=== PATIENT | female | born 1945 | race Caucasian/White ===

== ENCOUNTER → 2016-11-10 | Outpatient (CLI) | payer MEDICARE, OTHER ==
--- NOTE | 2016-11-10 12:50 | CONS ---
DATE OF CONSULTATION: 11/10/2016 CONSULTATION/NEW PATIENT EVALUATION: A 71-year-old lady who has [facility] for snoring, witnessed episodes of stopped breathing and difficulties to initiate sleep. HISTORY OF PRESENT ILLNESS/SLEEP-WAKE EVALUATION: SLEEP SCHEDULE: Patient's usual sleep schedule is from 10 p.m. to 8 a.m. FALLING ASLEEP: She does have problem with falling asleep. She has pain in her body and that is one of the reasons why she cannot fall asleep. No TV in bedroom. DURING SLEEP: During the sleep she snores. She has been told about stopped breathing during sleep. She wakes up with nocturia, dry mouth, panic attack, palpitations, sweating. Positive history of sleep talking. Patient wakes up from sleep 3 times with one episode of nocturia. Positive history of kicking at night, patient cover sometimes out in the morning. DURING THE DAY/WAKE EVALUATION: In the morning, patient wakes up tired, has difficulties to pay attention, falling asleep during the day, worried about her sleep, has irritability, depression, anxiety. [place] Sleepiness Scale increased to 11. PAST MEDICAL HISTORY: Positive for hypertension, bipolar, coronary artery disease, acid reflux. PAST SURGICAL HISTORY: Stent insertion to coronary artery, fusion at C6, C7, right shoulder surgery, . MEDICATIONS: Xanax, aspirin, Celexa, Lasix, hydrochlorothiazide, Imdur, Toprol, omeprazole, Percocet, Zocor, Neurontin, Norvasc, Carvedilol, amiodarone, Lopressor, vitamin D supplement. SOCIAL HISTORY: Negative for smoking or using alcohol. REVIEW OF SYSTEMS: Awakenings from sleep, sleepiness during the day, snoring, neck and shoulder pain. FAMILY HISTORY: Hypertension, heart problems, hyperlipidemia, arthritis, pneumonia, headaches, cancer, snoring, acid reflux, mental illness, restless legs. During physical exam, lady without distress. BP 113/64, HR 62, RR 16. Height 5, 5 weight 241, BMI 40.1. Neck 15 inches in circumference. Temp is 98.4. Oxygen saturation at room air 92%. Oropharynx pharynx extremely low position of soft palate. ABDOMEN: Obese. NECK: Supple. No JVD. Thyroid is not palpable. LUNGS: Clear to percussion and to auscultation. Good air exchange. No wheezing or rhonchi. HEART: S1, S2 regular. No murmurs, gallops or rubs. EXTREMITIES: No clubbing or cyanosis. CARD STRIPPER: Awake, alert, and oriented x3. Cranial nerves 2 to 7 intact. There is no fasciculation or atrophy noted. No focal deficits observed. IMPRESSION: 1. Snoring, witness episodes of stopped breathing during the sleep. 2. Extremely low position of soft palate. 3. Sleepiness, [place] Sleepiness scale increased to 11. 4. Obesity. 5. Obstructive sleep apnea-hypopnea syndrome. 6. Difficulties to initiate sleep secondary to pain the shoulder and in the neck. 7. Neck pain. 8. Shoulder problem. 9. Hypertension. 10. Obesity, body mass index 40.1. 11. Bipolar. 12. Coronary artery disease, status post stenting. 13. Acid reflux. 14. Pointed history of kicking, possible periodic limb-movement syndrome. 15. Hyperlipidemia. 16. Status post fusion surgery on C6, C7. 17. Status post right shoulder surgery. 18. Status post . PLAN: 1. Polysomnography for evaluation of patient's breathing during sleep. 2. CPAP/BiPAP titration if sleep study confirms obstructive sleep apnea-hypopnea syndrome. 3. Preferable position during sleep on the side. 4. No driving if patient feels any sleepiness. Patient is aware of civil and criminal liability for unsafe driving. 5. I will see patient for follow-up visit to explain results of the testing and following plan. 6. Recommendations for insomnia should include stimulus control varied time, paradoxical intension, no ( ) in bedroom. Thank you very much for referring this patient for consultation. Sincerely, Win Hanson MD, PhD, FAASM. Diplomat of [place] [employer], Sleep Medicine Board by [place] [employer] Curator [facility] [place]
== END | disposition home or self-care (01) ==
LOC: SLEEP 10:13
PROVIDERS: ATTEND Internal Medicine
DX: G47.33 Obstructive sleep apnea (adult) (pediatric) (principal); E66.9 Obesity, unspecified; Z68.41 Body mass index [BMI] 40.0-44.9, adult; M54.2 Cervicalgia; M25.519 Pain in unspecified shoulder; I10 Essential (primary) hypertension; F31.9 Bipolar disorder, unspecified; I25.10 Atherosclerotic heart disease of native coronary artery without angina pectoris; Z95.818 Presence of other cardiac implants and grafts; K21.9 Gastro-esophageal reflux disease without esophagitis; E78.5 Hyperlipidemia, unspecified; Z98.1 Arthrodesis status; Z98.890 Other specified postprocedural states; Z79.899 Other long term (current) drug therapy
CPT/HCPCS: 99211

== ENCOUNTER 2017-03-14 18:22 | Observation (INO) | payer MEDICARE, OTHER ==
[2017-03-14] MEDS ORDERED: ASPIRIN 81 MG CHEW PO STA (18:43)
[2017-03-14] MEDS ORDERED: NITROGLYCERIN OINT 1 INCH/GM PACKET TOPICAL STA (18:43)
[2017-03-14 19:24] LABS: Basophils # (A) 0.1 k/uL (0-0.2); Basophils % (A) 1 %; CH 29.6; CHCM 32.5; Eosinophils # (A) 0.2 k/uL (0-0.7); Eosinophils % (A) 3 %; HCT 41.6 % (34.0-46.0); HDW 2.03; HGB 13.3 gm/dL (11.4-16.0); Luc # (Auto) 0.22; Luc % (Auto) 3; Lymphocytes # (A) 3.1 k/uL (1.0-4.8); Lymphocytes % (A) 36 %; MCH 29.4 pg (25.0-35.0); MCHC 32.1 g/dL (31.0-37.0); MCV 91.6 fL (80.0-100.0); Mean Platelet Volume 9.3; Monocytes # (A) 0.6 k/uL (0-1.0); Monocytes % (A) 8 %; Neutrophils # (A) 4.2 k/uL (1.3-7.7); Neutrophils % (A) 50 %; RBC 4.54 m/uL (3.80-5.40); RDW 14.1 % (11.5-15.5); WBC 8.5 k/uL (3.8-10.6); WBC (Perox) 8.45
[2017-03-14 19:31] LABS: ALT 25 U/L (9-52); AST 24 U/L (14-36); Alkaline Phosphatase 88 U/L (38-126); Anion Gap 7 mmol/L; Blood Urea Nitrogen 26 mg/dL (7-17); Calcium 9.5 mg/dL (8.4-10.2); Carbon Dioxide 27 mmol/L (22-30); Chloride 103 mmol/L (98-107); Glucose 100 mg/dL (74-99); Magnesium 2.2 mg/dL (1.6-2.3); Non-African American GFR(MDRD) 55 (>60 ml/min/1.73 sqM); Potassium 4.5 mmol/L (3.5-5.1); Sodium 137 mmol/L (137-145); Total Bilirubin 0.6 mg/dL (0.2-1.3); Total Protein 7.5 g/dL (6.3-8.2)
[2017-03-14 19:35] LABS: Partial Thromboplastin Time 24.1 sec (22.0-30.0); Prothrombin Time 10.3 sec (9.0-12.0)
--- NOTE | 2017-03-14 19:36 | XR ---
EXAMINATION TYPE: XR chest 2V DATE OF EXAM: 03/14/2017 COMPARISON: 01/09/2016 INDICATION: Chest pain TECHNIQUE: Frontal and lateral views of the chest are obtained. FINDINGS: The heart size is normal. The pulmonary vasculature is normal. The lungs are clear. IMPRESSION: 1. No acute pulmonary process.
[2017-03-14 19:43] LABS: Creatine Kinase 50 U/L (30-135)
[2017-03-14 19:55] LABS: Creatine Kinase MB 0.7 ng/mL (0.0-2.4); Troponin I <0.012 ng/mL (0.000-0.034)
[2017-03-14] MEDS ORDERED: HEPARIN SODIUM,PORCINE 5,000 UNIT/ML 1 ML VIAL IV ONE (20:22)
[2017-03-14] MEDS ORDERED: NITROGLYCERIN SL TABS 0.4 MG TAB SUBLINGUAL PRN (20:22)
[2017-03-14] MEDS ORDERED: HEPARIN SODIUM,PORCINE 5,000 UNIT/ML 1 ML VIAL IV PRN (20:22)
--- NOTE | 2017-03-14 20:22 | ED ---
Chest Pain HPI - General Chief Complaint: Chest Pain Stated Complaint: Chest pain Time Seen by Provider: 03/14/17 18:39 Source: patient Mode of arrival: wheelchair Limitations: no limitations - History of Present Illness Initial Comments: This 71-year-old white female presents with a complaint of some chest pain. She states that it is in the midsternal area and radiates posteriorly. This is described as a pressure type of sensation. She has had intermittently over the past 2-3 weeks. She will take sublingual nitroglycerin with relief. She had it today and took sublingual nitroglycerin with relief. She is currently pain- free. She denies any shortness breath diaphoresis or palpitations. She denies any leg pain, swelling, history of DVT, or history of PE. She does relate that she has had previous coronary artery disease with previous cardiac stenting. Her last stent apparently was 2 or 3 years ago. She was never had a stress test since that time. She apparently has an appointment to follow-up with her multifocal lens inspector this next month. No other complaints or modifying factors. - Related Data Home Medications Medication Instructions Recorded Confirmed Furosemide [Lasix] 20 mg PO BID 01/09/16 03/14/17 Isosorbide Mononitrate ER [Imdur] 30 mg PO DAILY 01/09/16 03/14/17 Nitroglycerin Sl Tabs [Nitrostat] 0.4 mg SUBLINGUAL Q5M PRN 01/09/16 03/14/17 Omeprazole [PriLOSEC] 20 mg PO AC-BID 01/09/16 03/14/17 ALPRAZolam [Xanax] 1 mg PO QID PRN 07/03/16 03/14/17 Simvastatin [Zocor] 40 mg PO DAILY 07/03/16 03/14/17 oxyCODONE-APAP 10-325MG [Percocet 1 tab PO QID PRN 07/03/16 03/14/17 10-325 mg] Azilsartan Med/Chlorthalidone 1 tab PO DAILY 03/14/17 03/14/17 [Edarbyclor 40-25 mg Tablet] Citalopram Hydrobromide [CeleXA] 10 mg PO DAILY 03/14/17 03/14/17 Allergies Allergy/AdvReac Type Severity Reaction Status Date / Time atorvastatin calcium AdvReac Unknown Verified 03/14/17 19:41 [From Lipitor] Review of Systems ROS Statement: Those systems with pertinent positive or pertinent negative responses have been documented in the HPI. ROS Other: All systems not noted in ROS Statement are negative. Past Medical History Past Medical History: Heart Failure, Hypertension, Myocardial Infarction ([place]) Additional Past Medical History / Comment(s): had mental breakdown several years ago and admitted for treatment Last Myocardial Infarction Date:: 01/16/14 History of Any Multi-Drug Resistant Organisms: None Reported Past Surgical History: Section, Heart Catheterization With Stent, Orthopedic Surgery Additional Past Surgical History / Comment(s): cervical fusion Date of Last Stent Placement:: 2013 Past Psychological History: Depression Smoking Status: Never smoker Past Alcohol Use History: None Reported Past Drug Use History: None Reported General Exam - General Exam Comments Initial Comments: GENERAL: The patient is well nourished and well hydrated. VITAL SIGNS: Heart rate, blood pressure, respiratory rate reviewed as recorded in nurse's notes. EYES: Pupils are round and reactive. Extraocular movements are intact. No conjunctival / lid redness or swelling. ENT: No external evidence of injury, swelling, or ecchymosis. Airway is patent. Throat is clear. NECK: Nontender. No swelling or evidence of injury. No subcutaneous emphysema. Trachea is midline. No thyroid mass. HEART: Regular rate and rhythm. Good peripheral pulses. LUNGS/CHEST: Breath sounds clear and equal bilaterally. No rales, rhonchi, or wheezes. No ecchymosis, subcutaneous emphysema, or tenderness. ABDOMEN: Abdomen soft without tenderness. No palpable masses or organomegaly. No peritoneal signs. No abdominal wall swelling or ecchymosis. EXTREMITIES: No extremity tenderness. Normal muscle tone and function. No thoracolumbar tenderness. NEUROLOGIC: Sensation is grossly intact. Cranial nerve exam reveals face is symmetrical, tongue is midline, speech is clear. SKIN: No abrasions or ecchymosis is noted. No induration or masses noted. PSYCHIATRIC: Alert and oriented. Appropriate behavior and judgment. Limitations: no limitations Course Vital Signs 03/14/17 03/14/17 03/14/17 18:28 19:00 19:25 Temperature 98.1 F 98.8 F Pulse Rate 90 82 Pulse Rate [ 82 Bilateral Hand Brush Filler ] Respiratory 20 15 Rate Blood Pressure 133/60 141/64 O2 Sat by Pulse 98 100 Oximetry Chest Pain MDM - MDM The patient was seen and examined. All diagnostics were reviewed. The EKG shows a normal sinus rhythm at a rate of 79. There is no acute ST-T wave changes identified. The NM interval is 164, QRS duration is 84, and QTC intervals 444. The patient had a chest x-ray which does not show any acute processes. Her laboratory was all essentially within normal limits. She does receive an aspirin as well as Nitropaste. The possibility of acute coronary syndrome certainly is possible and is felt that she would benefit from admission to the hospital for further treatment. She is agreeable with this plan. Disposition Clinical Impression: Chest pain, Unstable angina pectoris, Hypertension Disposition: ADMITTED IP TO THIS HOSP Condition: Good Referrals: Ottoniel Rasmussen DO [Primary Care Provider] - 1-2 days Time of Disposition: 20:22 Decision Date: 03/14/17 Decision Time: 20:22
[2017-03-14] MEDS ORDERED: ALPRAZolam 0.5 MG TAB PO PRN (20:25)
[2017-03-14] MEDS ORDERED: HEPARIN SODIUM,PORCINE/D5W PMX 25,000 UNIT in DEXTROSE/WATER 1 500ML.BAG IV SCH (20:30)
[2017-03-14] MEDS: oxyCODONE-APAP 10-325MG 1 EACH TAB PO PRN (21:59)
[2017-03-14] MEDS: FUROSEMIDE 20 MG TAB PO SCH (22:00)
[2017-03-14 22:10] VITALS: BMI 36.6
[2017-03-14] MEDS: NITROGLYCERIN OINT 1 INCH/GM PACKET TOPICAL SCH (23:42)
[2017-03-15 01:23] LABS: Creatine Kinase 38 U/L (30-135)
[2017-03-15 01:36] LABS: Creatine Kinase MB 0.8 ng/mL (0.0-2.4); Troponin I <0.012 ng/mL (0.000-0.034)
[2017-03-15] MEDS: oxyCODONE-APAP 10-325MG 1 EACH TAB PO PRN ×2 (04:32→11:55)
[2017-03-15] MEDS: NITROGLYCERIN OINT 1 INCH/GM PACKET TOPICAL SCH (06:10)
[2017-03-15] MEDS ORDERED: PANTOPRAZOLE 40 MG TABLET PO SCH (07:30)
[2017-03-15 07:36] VITALS: TEMP 97.4
[2017-03-15 07:54] LABS: Cholesterol 218 mg/dL (<200); HDL Cholesterol 86 mg/dL (40-60); Triglycerides 51 mg/dL (<150)
[2017-03-15 07:58] LABS: Creatine Kinase 36 U/L (30-135)
[2017-03-15] MEDS ORDERED: NITROGLYCERIN SL TABS 0.4 MG TAB SUBLINGUAL PRN (08:07)
[2017-03-15] MEDS ORDERED: ALPRAZolam 0.5 MG TAB PO PRN (08:07)
[2017-03-15] MEDS ORDERED: SODIUM CHLORIDE 0.9% 1,000 ML in EMPTY BAG 1 BAG IV ONE (08:07)
[2017-03-15] MEDS ORDERED: ASPIRIN 325 MG TAB PO STA (08:07)
[2017-03-15] MEDS ORDERED: ALPRAZolam 0.25 MG TAB PO PRN (08:07)
[2017-03-15 08:12] LABS: Creatine Kinase MB 0.6 ng/mL (0.0-2.4); Troponin I <0.012 ng/mL (0.000-0.034)
--- NOTE | 2017-03-15 08:44 | CONS ---
DATE OF CONSULTATION: CHIEF COMPLAINT: Chest pain. Keke is a 71-year-old lady with a history of coronary artery disease, status post angioplasty, hypertension, and dyslipidemia who presented to hospital complaining of chest pain. She complains she has intermittent episodes of moderate intensity, chest discomfort that she describes it as chest pressure that came on at rest and radiated to her back. She had scattering episodes of pain, took sublingual nitroglycerin without any response and it repeated 3 times following which the pain gradually resolved. She thinks that the pain is similar to the pain that she had several years ago when she had a myocardial infarction, just did not last as long. EKG does not reveal ischemic changes. Cardiac enzymes have been negative. Given the known CAD and symptoms suggestive of unstable angina, I am advising the patient to undergo cardiac catheterization for definitive diagnosis. She had been explained of risks, benefits, and alternatives, understood and accepted. Past medical history is significant for coronary artery disease, status post angioplasty, and dyslipidemia. Current medications include Percocet, simvastatin 40 q. daily, Prilosec 20 b.i.d., sublingual nitroglycerin on a p.r.n. basis, Imdur 30 mg daily, Lasix 20 b.i.d., Celexa, chlorthalidone, and Xanax. Allergic to ATORVASTATIN mainly in the form of muscle aches. Family history is negative for premature coronary artery disease. SOCIAL HISTORY: Negative for current smoking, EtOH abuse, or drug abuse. REVIEW OF SYSTEMS: HEENT is unremarkable. CARDIAC: As described above. RESPIRATORY: Negative. GI: Negative. GENITOURINARY: Negative. ALLERGY/IMMUNOLOGY: None. SKIN: Negative. MUSCULOSKELETAL: Negative. ENDOCRINE: Negative. CONSTITUTIONAL: Negative. ONCOLOGICAL: Negative. The rest of the system review is not relevant. On exam, comfortable at rest. Vital signs are stable. There is no jugular venous distention. Carotid upstroke is normal. There is no bruit. Chest exam reveals good air entry bilaterally. Heart exam reveals first and second heart sounds. No gallop. No murmur, no rub. Abdomen is soft, nontender. Exam of extremities did not reveal any edema. Peripheral pulses are felt. CALL CENTER RN exam did not reveal focal neurological deficits ASSESSMENT: 1. Unstable angina. 2. History of coronary artery disease, status post angioplasty. PLAN: Patient will undergo cardiac catheterization. She had been explained of risks, benefits, and alternatives, understood and accepted.
[2017-03-15] MEDS ORDERED: ISOSORBIDE MONONITRATE ER 30 MG TAB.ER.24H PO SCH (09:00)
[2017-03-15] MEDS ORDERED: PRAVASTATIN SODIUM 80 MG TAB PO SCH (09:00)
[2017-03-15] MEDS ORDERED: LOSARTAN 25 MG TAB PO SCH (09:00)
[2017-03-15] MEDS ORDERED: CITALOPRAM HYDROBROMIDE 10 MG TAB PO SCH (09:00)
[2017-03-15] MEDS ORDERED: CHLORTHALIDONE 25 MG TAB PO SCH (09:00)
[2017-03-15] MEDS ORDERED: IV FLUID CONTINUATION 150 ML IV ONE (09:53)
[2017-03-15] MEDS ORDERED: SODIUM CHLORIDE 0.9% 1,000 ML IV ONE (09:53)
[2017-03-15] MEDS ORDERED: MIDAZOLAM 2 MG/2 ML VIAL ONE (09:55)
[2017-03-15] MEDS ORDERED: MIDAZOLAM 2 MG/2 ML VIAL IVP ONE (10:18)
[2017-03-15] MEDS ORDERED: LIDOCAINE 2% INJ 20 MG/ML SQ ONE (10:21)
[2017-03-15] MEDS ORDERED: fentaNYL (PF) 50 MCG/ML 2 ML AMP ONE (10:24)
[2017-03-15] MEDS ORDERED: fentaNYL (PF) 50 MCG/ML 2 ML AMP IV ONE (10:25)
[2017-03-15] MEDS ORDERED: IOHEXOL 350 MG/ML 125ML BOTTLE INJ ONE (10:33)
[2017-03-15] MEDS ORDERED: RX INFO: IV CONTRAST WAS GIVEN 1 EACH MISC MISCELLANE PRN (10:41)
[2017-03-15] MEDS ORDERED: SODIUM CHLORIDE 0.9% 1,000 ML IV SCH (10:45)
--- NOTE | 2017-03-15 10:54 | CC ---
DATE OF SERVICE: INDICATION: Unstable angina. PROCEDURE NOTE: After obtaining informed consent, left heart catheterization and coronary angiogram are performed via the right femoral artery using standard [place]atha catheters. Patient tolerated the procedure well without any obvious immediate complication. A femoral angiogram was performed and decision was made for manual hemostasis because of the relatively high entry into the common femoral artery. FINDINGS: 1. HEMODYNAMICS: Left ventricular end-diastolic pressure is 12 mm. There is no significant gradient across the aortic valve. 2. LEFT VENTRICULOGRAM: Left ventriculogram is not performed. 3. ANGIOGRAPHIC DATA: LEFT MAIN CORONARY ARTERY: Left main coronary artery is a normal size vessel and is free of stenosis. It divides into left anterior descending coronary artery and circumflex coronary artery. Circumflex coronary artery is a dominant vessel and is free of stenosis. LAD was previously stented in the proximal part. There is a 40% in-stent restenosis noted. I do not see any focal hemodynamically significant lesions. Right coronary artery is a small, nondominant vessel and is free of significant disease. CONCLUSIONS: Mild in-stent restenosis within the left anterior descending coronary artery. No significant disease in the dominant circumflex or the nondominant right coronary artery. PLAN: Patient will be managed with optimal medical therapy. We will discharge her home and consider an outpatient stress test and if there is ischemia consider stenting of the LAD.
[2017-03-15 11:23] VITALS: RESP 14
[2017-03-15] MEDS: FUROSEMIDE 20 MG TAB PO SCH (14:18)
[2017-03-15 14:22] VITALS: BP 99/47; PULSE 72
--- NOTE | 2017-03-15 18:23 | HP ---
H&P AND DISCHARGE SUMMARY DATE OF ADMISSION: Patient is a 71-year-old with current complaints of chest pain in the retrosternal area, sharp in nature, radiating to the shoulder blades. Patient still has her gallbladder. Patient underwent cardiac catheterization, which did not show any significant coronary occlusion contributing to her pain. Patient denied any diaphoresis, palpitations. Patient's D-dimer is negative. Patient's chest pain is non-pleuritic in nature. Patient's pain is not related to food. ( ) gastroesophageal reflux disease and patient is on Prilosec at home. Patient still has her gallbladder. Will obtain a gallbladder ultrasound. Patient will need to stay on the bed in a supine position for a certain amount of time after cardiac catheterization. After that, if patient's right upper quadrant ultrasound is negative, then patient will be discharged today. If it is positive for any gallstones, patient will be referred to surgery and will be discharged. Patient at this point of time is pain-free. HOME MEDICATIONS: 1. Lasix. 2. Isosorbide mononitrate. 3. Nitroglycerin. 4. Omeprazole. 5. Alprazolam. 6. Simvastatin. 7. Oxycodone/acetaminophen. 8. Chlorthalidone. 9. Losartan. 10. Citalopram. ALLERGIES: ATORVASTATIN. PAST MEDICAL HISTORY: 1. Hypertension. 2. Myocardial infarction in the past. 3. Gastroesophageal reflux disease. 4. Depression. 5. section. 6. Cardiac catheterization and stenting in the past. 7. Orthopedic surgery. SOCIAL HISTORY: Denied any smoking, alcohol abuse or any drug abuse. FAMILY HISTORY: Cancer in the family. PHYSICAL EXAMINATION: VITAL SIGNS: Temperature 97.4, pulse of 72, respiratory rate of 14. Blood pressure is 99/47. Saturating at 93% on room air. GENERAL: The patient is alert and oriented x3, not in any acute distress. Well developed, well nourished. HEENT: Pupils are round and equally reacting to light. EOMI. No scleral icterus. No conjunctival pallor. Normocephalic, atraumatic. No pharyngeal erythema. No thyromegaly. CARDIOVASCULAR: S1 and S2 present. No murmurs, rubs, or gallops. PULMONARY: Chest is clear to auscultation, no wheezing or crackles. ABDOMEN: Soft, nontender, nondistended, normoactive bowel sounds. No palpable organomegaly. MUSCULOSKELETAL: No joint swelling or deformity. EXTREMITIES: No cyanosis, clubbing, or pedal edema. NEUROLOGICAL: Gross neurological examination did not reveal any focal deficits. SKIN: No rashes. CBC, CMP are within normal limits except for mildly elevated BUN. ASSESSMENT AND PLAN: 1. Chest pain. Rule out acute coronary syndrome. Patient subsequently underwent cardiac catheterization, which is negative. I do have a little bit of suspicion of gallbladder stones. Ultrasound of the gallbladder will be obtained. 2. Rule out cholelithiasis. 3. Hypertension. Patient is actually hypotensive, because of which his losartan and chlorthalidone combination will be discontinued; probably that will help with the elevated BUN as well. 4. Hyperlipidemia. 5. Depression, for which patient can continue her home medications. 6. Patient will continue Prilosec for her gastroesophageal reflux disease. This dictation is both H&P and discharge summary.
--- NOTE | 2017-03-16 08:47 | ECHOF ---
Referral Reason: MEASUREMENTS -------- HEIGHT: 165.1 cm WEIGHT: 99.3 kg BP: 109/55 RVIDd: 2.6 cm (< 3.3) IVSd: 0.9 cm (0.6 - 1.1) LVIDd: 5.1 cm (3.9 - 5.3) LVPWd: 0.9 cm (0.6 - 1.1) IVSs: 1.4 cm LVIDs: 3.5 cm LVPWs: 1.3 cm LAESV Index (A-L): 22.58 ml/m Ao Diam: 3.4 cm (2.0 - 3.7) AV Cusp: 1.8 cm (1.5 - 2.6) LA Diam: 2.5 cm (2.7 - 3.8) MV EXCURSION: 18.872 mm (> 18.000) MV EF SLOPE: 114 mm/s (70 - 150) EPSS: 0.4 cm MV E Alcon: 1.07 m/s MV DecT: 303 ms MV A Alcon: 1.02 m/s MV E/A Ratio: 1.06 RAP: 5.00 mmHg RVSP: 28.77 mmHg FINDINGS -------- Sinus rhythm. This was a technically difficult study with suboptimal views. LV size, wall thickness and systolic function are normal, with an EF greater than 55%. Overall left ventricular systolic function is normal with, an EF between 55 - 60 %. The right ventricle is normal in size and function. Normal LA size by volume 22+/-6 ml/m2. The right atrium is normal in size. 1.5mg of Definity was utilized for enhancement of images Aortic valve is trileaflet and is mildly thickened. There is no evidence of aortic regurgitation. There is no evidence of aortic stenosis. The mitral valve leaflets are mildly thickened. There is trace to mild mitral regurgitation. Trace tricuspid regurgitation present. There is no evidence of pulmonary hypertension. The right ventricular systolic pressure, as measured by Doppler, is 28.77mmHg. The pulmonic valve was not well visualized. The aortic root size is normal. Normal inferior vena cava with normal inspiratory collapse consistent with estimated right atrial pressure of 5 mmHg. The pericardium is normal. There is no pericardial effusion. CONCLUSIONS -------- 1. Sinus rhythm. 2. Trace tricuspid regurgitation present. 3. There is no evidence of pulmonary hypertension. 4. The right ventricular systolic pressure, as measured by Doppler, is 28.77mmHg. 5. The pulmonic valve was not well visualized. 6. The aortic root size is normal. 7. There is no pericardial effusion. 8. This was a technically difficult study with suboptimal views. 9. LV size, wall thickness and systolic function are normal, with an EF greater than 55%. 10. Overall left ventricular systolic function is normal with, an EF between 55 - 60 %. 11. Normal LA size by volume 22+/-6 ml/m2. 12. 1.5mg of Definity was utilized for enhancement of images 13. Aortic valve is trileaflet and is mildly thickened. 14. The mitral valve leaflets are mildly thickened. 15. There is trace to mild mitral regurgitation. SINGLE NEEDLE TUFTING MACHINE OPERATOR: Nate Doss RDCS
[2017-03-16] MEDS ORDERED: ASPIRIN 325 MG TAB PO SCH (09:00)
== END 2017-03-15 18:35 | disposition home or self-care (01) ==
LOC: EC 18:22 → SUPCPDRO 18:22 → 3OBS 20:22
PROVIDERS: ADMIT Internal Medicine; ATTEND Internal Medicine
DX: I25.110 Atherosclerotic heart disease of native coronary artery with unstable angina pectoris (principal); T82.855A Stenosis of coronary artery stent, initial encounter; Y83.1 Surgical operation with implant of artificial internal device as the cause of abnormal reaction of the patient, or of later complication, without mention of misadventure at the time of the procedure; I25.2 Old myocardial infarction; I11.0 Hypertensive heart disease with heart failure; I50.9 Heart failure, unspecified; Z88.8 Allergy status to other drugs, medicaments and biological substances; Z79.899 Other long term (current) drug therapy; F32.9 Major depressive disorder, single episode, unspecified; E78.5 Hyperlipidemia, unspecified; K21.9 Gastro-esophageal reflux disease without esophagitis; I95.9 Hypotension, unspecified
CPT/HCPCS: 96365; 96366 ×2; 96376; 99285; 36415; 94760; 93005; 93458; 85379; 83880; 80061; 80053; 82550 ×2; 82553 ×2; 83735; 84484 ×2; 85025; 85610; 85730 ×2; 71020; G0378 ×2; C8929; C1894; C1769; J2001; J2250; J1644 ×2; J3010; Q9967; 93306; 96360

== ENCOUNTER → 2017-03-31 | Outpatient (CLI) | payer MEDICARE, OTHER ==
--- NOTE | 2017-03-31 07:28 | US ---
EXAMINATION TYPE: US abdomen limited DATE OF EXAM: 03/31/2017 COMPARISON: NONE CLINICAL HISTORY: R10.11 RUQ ABD PAIN. larger habitus, ruq pain EXAM MEASUREMENTS: Liver Length: 15.4 cm Gallbladder Wall: 0.2 cm CBD: 0.4 cm Right Kidney: 9.9 x 4.4 x 4.1 cm Pancreas: Obscured by bowel gas Liver: There is diminished attenuation in the liver compatible some mild fatty infiltration. Gallbladder: wnl Evidence for sonographic Sam's sign: no CBD: wnl Right Kidney: wnl IMPRESSION: 1. Mild fatty infiltration of the liver.
== END | disposition home or self-care (01) ==
LOC: RADUSWWP 06:53
PROVIDERS: ATTEND Family Medicine
DX: K76.0 Fatty (change of) liver, not elsewhere classified (principal)
CPT/HCPCS: 76705

== ENCOUNTER → 2018-11-29 | Outpatient (CLI) | payer MEDICARE, OTHER ==
--- NOTE | 2018-12-01 13:59 | MR ---
EXAMINATION TYPE: MR cervical spine wo con DATE OF EXAM: 11/29/2018 COMPARISON: 10/01/2016 HISTORY: spondylosis neck pain TECHNIQUE: Multiplanar, multisequence images of the cervical spine were acquired. Vertebra have normal alignment. There is metal artifact from anterior fusion surgery at C6-7. There i s some mild decreased signal in the disks throughout the cervical spine and disc space narrowing. The re is no compression fracture. The skull base appears intact. Brainstem is intact. Spinal canal is na rrowed to 6.5 mm at C5-6 due to facet arthropathy and mild posterior disc bulging. I see no focal bon e destruction. There is no evidence of edema and the cervical spinal cord. IMPRESSION: There is mild spinal stenosis at C4-5 C5-6 that measures down to 6.5 mm. No significant change compar ed to old exam. Mild multilevel spondylotic changes.
== END ==
LOC: RADMRIMAIN 07:36
PROVIDERS: ATTEND Internal Medicine
DX: M48.02 Spinal stenosis, cervical region (principal); M47.12 Other spondylosis with myelopathy, cervical region
CPT/HCPCS: 72141

== ENCOUNTER 2019-01-24 10:19 | Inpatient (IN) | payer MEDICARE, OTHER ==
[2019-01-24] MEDS ORDERED: methylPREDNISolone SOD SUCCI 125 MG/2 ML VIAL IV STA (10:51)
[2019-01-24] MEDS ORDERED: IPRATROPIUM-ALBUTEROL 3 ML NEB INHALATION STA ×2 (10:51→13:07)
--- NOTE | 2019-01-24 10:54 | ED ---
URI HPI - General Chief Complaint: Upper Respiratory Infection Stated Complaint: sinus & chest congestion Time Seen by Provider: 01/24/19 10:38 Source: patient, family, RN notes reviewed, old records reviewed Mode of arrival: ambulatory - History of Present Illness Initial Comments: Patient is a 73-year-old female who presents emergency department today with increased cough congestion and shortness of breath. Patient states that she was seen by her PCP and started on amoxicillin 500 3 times a day on Monday. She's been taking the antibiotics as prescribed. She states her cough is continuing to get worse. She denies any history of COPD or lung diseases. She is never sm oker. Patient reports she's had history of heart attacks and stents. Patient states that she has had no vomiting but does feel nauseated after taking her medications. She denies any associated chest pain. - Related Data Home Medications Medication Instructions Recorded Confirmed Furosemide [Lasix] 20 mg PO BID 01/09/16 01/24/19 Nitroglycerin Sl Tabs [Nitrostat] 0.4 mg SUBLINGUAL Q5M PRN 01/09/16 01/24/19 Simvastatin [Zocor] 40 mg PO DAILY 07/03/16 01/24/19 oxyCODONE-APAP 10-325MG [Percocet 1 tab PO QID PRN 07/03/16 01/24/19 10-325 mg] Aspirin EC [Ecotrin Low Dose] 81 mg PO DAILY 08/09/17 01/24/19 Carvedilol [Coreg] 6.25 mg PO BID 08/09/17 01/24/19 Cholecalciferol [Vitamin D3] 1,000 unit PO DAILY 08/09/17 01/24/19 Meloxicam [Mobic] 15 mg PO DAILY 08/09/17 01/24/19 Metoprolol Succinate [Toprol XL] 25 mg PO BID 08/09/17 01/24/19 Multivit-Min/FA/Lycopen/Lutein 1 tab PO DAILY 08/09/17 01/24/19 [Centrum Silver Tablet] amLODIPine [Norvasc] 5 mg PO BID 08/09/17 01/24/19 metFORMIN HCL [Glucophage] 500 mg PO AC-TID 08/09/17 01/24/19 Amoxicillin 500 mg PO TID 01/24/19 01/24/19 Carisoprodol [Soma] 350 mg PO HS 01/24/19 01/24/19 Celecoxib [CeleBREX] 200 mg PO DAILY 01/24/19 01/24/19 Citalopram Hydrobromide [CeleXA] 40 mg PO DAILY 01/24/19 01/24/19 Dextroamphetamine/Amphetamine 20 mg PO BID 01/24/19 01/24/19 [Adderall] Fluticasone Nasal Lutz [Flonase 2 spr EA NOSTRIL DAILY 01/24/19 01/24/19 Nasal Lutz] Folic Acid 1 mg PO DAILY 01/24/19 01/24/19 Hydrochlorothiazide [Hydrodiuril] 25 mg PO DAILY 01/24/19 01/24/19 Previous Rx's Medication Instructions Recorded Pantoprazole [Protonix] 40 mg PO AC-BID #60 tablet. 09/13/17 Thiamine [Vitamin B-1] 100 mg PO DAILY@1200 #30 tab 09/13/17 Allergies Allergy/AdvReac Type Severity Reaction Status Date / Time atorvastatin calcium AdvReac MUSCLE Verified 01/24/19 10:43 [From Lipitor] ACHES Review of Systems ROS Statement: Those systems with pertinent positive or pertinent negative responses have been documented in the HPI. ROS Other: All systems not noted in ROS Statement are negative. Past Medical History Past Medical History: Heart Failure, Diabetes Mellitus, Hypertension, Myocardial Infarction ([place]) Additional Past Medical History / Comment(s): had mental breakdown several years ago and admitted for treatment Last Myocardial Infarction Date:: 01/16/14 History of Any Multi-Drug Resistant Organisms: None Reported Past Surgical History: Section, Heart Catheterization With Stent, Orthopedic Surgery Additional Past Surgical History / Comment(s): cervical fusion, shoulder repair on the right Past Anesthesia/Blood Transfusion Reactions: No Reported Reaction Date of Last Stent Placement:: 2013 Past Psychological History: Anxiety, Bipolar, Depression Smoking Status: Never smoker Past Alcohol Use History: None Reported Past Drug Use History: None Reported - Past Family History Mother Additional Family Medical History / Comment(s): mac degeneration of the eyes Father Family Medical History: Cancer Additional Family Medical History / Comment(s): Stomach CA General Exam - General Exam Comments Initial Comments: This is a 73-year-old female. Alert and oriented 3. Patient appears in no s ignificant distress at this time. General appearance: alert, in no apparent distress Head exam: Present: atraumatic, normocephalic, normal inspection Eye exam: Present: normal appearance, PERRL, EOMI. Absent: scleral icterus, conjunctival injection, periorbital swelling ENT exam: Present: normal exam, mucous membranes moist Neck exam: Present: normal inspection. Absent: tenderness, meningismus, lymphadenopathy Respiratory exam: Present: wheezes (Diffuse wheezing over all lung macario. Rhonchi noted.). Absent: normal lung sounds bilaterally, respiratory distress, rales, rhonchi, stridor Cardiovascular Exam: Present: regular rate, normal rhythm, normal heart sounds. Absent: systolic murmur, diastolic murmur, rubs, gallop, clicks GI/Abdominal exam: Present: soft, normal bowel sounds. Absent: distended, tenderness, guarding, rebound, rigid Extremities exam: Present: normal inspection, full ROM, normal capillary refill. Absent: tenderness, pedal edema, joint swelling, calf tenderness Back exam: Present: normal inspection Neurological exam: Present: alert, oriented X3, CN II-XII intact Psychiatric exam: Present: normal affect, normal mood Skin exam: Present: warm, dry, intact, normal color. Absent: rash Course Vital Signs 01/24/19 01/24/19 01/24/19 10:28 12:00 12:16 Temperature 98.1 F Pulse Rate 80 82 90 Respiratory 20 Rate Blood Pressure 129/78 O2 Sat by Pulse 97 Oximetry 01/24/19 01/24/19 01/24/19 13:17 13:30 13:59 Temperature Pulse Rate 85 88 Respiratory Rate Blood Pressure O2 Sat by Pulse 92 L Oximetry - Reevaluation(s) Reevaluation #1: 01/24/19 14:09 Patient was reevaluated times and that her pulse ox down to 80 and 92%. Patient continued to wheeze and complains of significant short of breath. Medical Decision Making - Medical Decision Making is a 73-year-old female presents emergency department today with chief complaint of cough congestion and wheezing for the past week. She was seen by PCP started on amoxicillin on Monday. She isn't taking the antibiotics as prescribed. She states that she is continued worse. She has significant wheezing and productive cough on exam. Patient is given IV fluids labwork obt ained. She is given IV Solu-Medrol. She is given a total of 3 DuoNeb treatments with continued wheezing shortness of breath. Patient has no history of COPD or lung diseases. Patient was placed on oxygen. At this time Patient will be admitted for tracheobronchitis, Patient improved after 3 breathing treatments. Patient will be administered with 1 g of Rocephin IV. Continued steroids. - Lab Data Result diagrams: 01/24/19 11:35 01/24/19 11:35 Lab Results 01/24/19 01/24/19 01/24/19 Range/Units 11:35 11:35 11:35 WBC 6.9 (3.8-10.6) k/uL RBC 3.90 (3.80-5.40) m/uL Hgb 11.0 L (11.4-16.0) gm/dL Hct 34.5 (34.0-46.0) % MCV 88.4 (80.0-100.0) fL MCH 28.2 (25.0-35.0) pg MCHC 31.9 (31.0-37.0) g/dL RDW 14.0 (11.5-15.5) % Plt Count 210 (150-450) k/uL Neutrophils % 56 % Lymphocytes % 27 % Monocytes % 7 % Eosinophils % 7 % Basophils % 1 % Neutrophils # 3.9 (1.3-7.7) k/uL Lymphocytes # 1.9 (1.0-4.8) k/uL Monocytes # 0.5 (0-1.0) k/uL Eosinophils # 0.5 (0-0.7) k/uL Basophils # 0.1 (0-0.2) k/uL Sodium 139 (137-145) mmol/L Potassium 4.4 (3.5-5.1) mmol/L Chloride 107 (98-107) mmol/L Carbon Dioxide 27 (22-30) mmol/L Anion Gap 5 mmol/L BUN 10 (7-17) mg/dL Creatinine 0.76 (0.52-1.04) mg/dL Est GFR (CKD-EPI)AfAm >90 (>60 ml/min/1.73 sqM) Est GFR (CKD-EPI)NonAf 79 (>60 ml/min/1.73 sqM) Glucose 101 H (74-99) mg/dL Plasma Lactic Acid Brijesh 0.7 (0.7-2.0) mmol/L Calcium 9.2 (8.4-10.2) mg/dL - Radiology Data Radiology results: report reviewed No acute process noted on chest x-ray. Disposition Clinical Impression: Tracheobronchitis, Failure of outpatient treatment Disposition: ADMITTED IP TO THIS [facility] Condition: Stable Is patient prescribed a controlled substance at d/c from ED?: No Referrals: Virgil Campuzano MD [Primary Care Provider] - 1-2 days Time of Disposition: 14:11
[2019-01-24 11:55] LABS: Basophils # (A) 0.1 k/uL (0-0.2); Basophils % (A) 1 %; Eosinophils # (A) 0.5 k/uL (0-0.7); Eosinophils % (A) 7 %; HCT 34.5 % (34.0-46.0); Lymphocytes # (A) 1.9 k/uL (1.0-4.8); Lymphocytes % (A) 27 %; MCH 28.2 pg (25.0-35.0); MCHC 31.9 g/dL (31.0-37.0); MCV 88.4 fL (80.0-100.0); Monocytes # (A) 0.5 k/uL (0-1.0); Monocytes % (A) 7 %; Neutrophils # (A) 3.9 k/uL (1.3-7.7); Neutrophils % (A) 56 %; Platelet Count 210 k/uL (150-450); WBC 6.9 k/uL (3.8-10.6)
[2019-01-24 12:12] LABS: Anion Gap 5 mmol/L; Blood Urea Nitrogen 10 mg/dL (7-17); Calcium 9.2 mg/dL (8.4-10.2); Carbon Dioxide 27 mmol/L (22-30); Chloride 107 mmol/L (98-107); Glucose 101 mg/dL (74-99); Potassium 4.4 mmol/L (3.5-5.1); Sodium 139 mmol/L (137-145)
--- NOTE | 2019-01-24 12:45 | XR ---
EXAMINATION TYPE: XR chest 2V DATE OF EXAM: 01/24/2019 COMPARISON: 09/16/2017 TECHNIQUE: PA and lateral views submitted. HISTORY: Cough and congestion FINDINGS: The lungs are clear and there is no pneumothorax, pleural effusion, or focal pneumonia. Arthropathy of the shoulders and diffuse osteopenia. Postsurgical change overlying the cervical spine. Biapical pleural thickening. Hypertrophic and degenerative change of the vertebral column. IMPRESSION: 1. No acute process.
[2019-01-24] MEDS ORDERED: cefTRIAXone IN SWFI 1,000 MG/10 ML SYRINGE IVP STA (13:07)
[2019-01-24] MEDS ORDERED: SODIUM CHLORIDE 0.9% 1,000 ML IV ONE (13:13)
[2019-01-24] MEDS ORDERED: NALOXONE 0.4 MG/ML 1 ML VIAL IV PRN (14:11)
[2019-01-24] MEDS ORDERED: ONDANSETRON 4 MG/2 ML VIAL IVP PRN (14:11)
[2019-01-24] MEDS ORDERED: ACETAMINOPHEN TAB 325 MG TAB PO PRN (14:11)
[2019-01-24] MEDS ORDERED: IBUPROFEN 400 MG TAB PO PRN (14:11)
[2019-01-24] MEDS ORDERED: IPRATROPIUM-ALBUTEROL 3 ML NEB INHALATION PRN ×2 (14:13→22:32)
[2019-01-24] MEDS ORDERED: AZITHROMYCIN 500 MG TAB PO STA (14:14)
[2019-01-24] MEDS: SODIUM CHLORIDE 0.9% 1,000 ML IV SCH (17:01)
[2019-01-24 17:29] LABS: Glucose,Whole Blood 148 mg/dL (75-99)
[2019-01-24] MEDS: Acetaminophen-Codeine 300-30mg TAB PO PRN (18:03)
[2019-01-24] MEDS: methylPREDNISolone SOD SUCCI 125 MG/2 ML VIAL IV SCH ×2 (18:50→19:00)
[2019-01-24 20:44] LABS: Glucose,Whole Blood 201 mg/dL (75-99)
[2019-01-24 20:54] VITALS: BMI 33.3
[2019-01-24] MEDS ORDERED: AMOXICILLIN 500 MG CAP PO SCH (22:00)
[2019-01-24] MEDS ORDERED: INSULIN ASPART (NovoLOG) 100 UNIT/ML VIAL SQ ONE (22:38)
[2019-01-24] MEDS: CARVEDILOL 6.25 MG TAB PO SCH (22:51)
[2019-01-24] MEDS: amLODIPine 5 MG TAB PO SCH (22:51)
[2019-01-24] MEDS: FUROSEMIDE 20 MG TAB PO SCH (22:51)
[2019-01-24] MEDS: METOPROLOL SUCCINATE (ER) 25 MG TAB.ER.24H PO SCH (22:51)
[2019-01-24] MEDS: LEVOFLOXACIN 500 MG TAB PO SCH (22:51)
[2019-01-24] MEDS ORDERED: PANTOPRAZOLE 40 MG/10 ML VIAL IVP ONE (22:54)
[2019-01-24] MEDS: IPRATROPIUM-ALBUTEROL 3 ML NEB INHALATION SCH (23:37)
[2019-01-24] MEDS: methylPREDNISolone SOD SUCCI 40 MG/ML 1 ML VIAL IV SCH (23:47)
[2019-01-25] MEDS: Acetaminophen-Codeine 300-30mg TAB PO PRN ×3 (01:25→20:10)
[2019-01-25] MEDS: SODIUM CHLORIDE 0.9% 1,000 ML IV SCH ×3 (05:30→20:16)
[2019-01-25 06:59] LABS: Glucose,Whole Blood 142 mg/dL (75-99)
[2019-01-25] MEDS ORDERED: PANTOPRAZOLE 40 MG TABLET PO SCH (07:30)
[2019-01-25] MEDS: IPRATROPIUM-ALBUTEROL 3 ML NEB INHALATION SCH ×4 (07:34→19:55)
[2019-01-25] MEDS: BUDESONIDE 0.5 MG/2 ML NEBU INHALATION SCH ×2 (07:34→19:55)
[2019-01-25] MEDS: FUROSEMIDE 20 MG TAB PO SCH ×2 (08:25→16:44)
[2019-01-25] MEDS: CARVEDILOL 6.25 MG TAB PO SCH ×2 (08:25→16:44)
[2019-01-25] MEDS: METOPROLOL SUCCINATE (ER) 25 MG TAB.ER.24H PO SCH ×2 (08:25→20:10)
[2019-01-25] MEDS: INSULIN ASPART (NovoLOG) 100 UNIT/ML VIAL SQ SCH ×4 (08:25→21:36)
[2019-01-25] MEDS: ASPIRIN 81 MG PO SCH (08:25)
[2019-01-25] MEDS: amLODIPine 5 MG TAB PO SCH ×2 (08:25→20:10)
[2019-01-25] MEDS: methylPREDNISolone SOD SUCCI 40 MG/ML 1 ML VIAL IV SCH ×2 (08:25→16:43)
[2019-01-25] MEDS: PANTOPRAZOLE 40 MG/10 ML VIAL IV SCH (08:26)
[2019-01-25] MEDS: FLUTICASONE 50MCG/SPRAY NASAL 16GM EA NOSTRIL SCH (08:33)
[2019-01-25] MEDS ORDERED: CITALOPRAM HYDROBROMIDE 20 MG TAB PO SCH (09:00)
[2019-01-25 12:12] LABS: Glucose,Whole Blood 142 mg/dL (75-99)
[2019-01-25 17:23] LABS: Glucose,Whole Blood 149 mg/dL (75-99)
--- NOTE | 2019-01-25 18:49 | HP ---
HISTORY AND PHYSICAL CHIEF COMPLAINT: Shortness of breath and difficulty breathing. HISTORY OF PRESENT ILLNESS: This is the first known admission for this 73-year-old white female who presented to the emergency room with shortness of breath, sore throat and a harsh cough. She had been started on amoxicillin and was getting worse. She has had no hemoptysis, pleuritic pain, fever, chills, etc. In the emergency room she was afebrile and vital signs were normal. White count was 6.9, hemoglobin 11. The rest of her studies were normal. HOME MEDICATIONS: At home she has been on: 1. Soma. 2. Celebrex. 3. Vitamin D3. 4. Adderall. 5. Folic acid. 6. Hydrochlorothiazide. 7. Mobic. 8. Metformin. 9. OxyContin 10. 10.Simvastatin. 11.Thiamine. 12.Amlodipine. 13.Aspirin. 14.The amoxicillin. 15.Carvedilol. 16.Celexa. 17.Fluticasone nasal spray. 18.Lasix. 19.Metoprolol. 20.Protonix. REVIEW OF SYSTEMS: Review of systems was otherwise unremarkable. She has had no neurologic problems, difficulty with the vision or the hearing, heart disease, palpitations, angina, abdominal pain, nausea, vomiting, hematemesis, melena, hematochezia, jaundice, hepatitis, cirrhosis, renal failure, hematuria, frequency, urgency, dysuria, incontinence, diabetes, etc. Past medical history, family history, and personal and social histories are unremarkable. She is ALLERGIC TO LIPITOR. She has had some procedures in the past, including 2 cardiac stents and a procedure under [facility]. She does not smoke. She has mild type 2 NIDDM. She also was experiencing a tremor, which is apparently new for her, and she thinks it might be related to the updraft treatments. PHYSICAL EXAMINATION: Blood pressure 123/73, pulse 74, respiration 20, and she is afebrile. In general she appeared to be well developed, well nourished, in no acute distress. Skin color is normal. Skin is warm and dry. Lymph nodes are not enlarged. Head, ears, eyes, nose, mouth and throat are normal. Neck veins are not distended. Chest demonstrates scattered rales and rhonchi with expiratory wheezing. Cardiac exam is normal sinus rhythm with no murmurs or extra sounds. Abdomen is soft, non-tender, without visceromegaly or masses. Extremities are normal. Neurologically she is intact. She is admitted to the hospital with the diagnoses: 1. Tracheobronchitis. 2. History of coronary artery disease. PLAN: 1. Bed rest. 2. IV fluids. 3. IV and inhaled steroids. 4. Antibiotics. 5. Watch blood sugars. MMODL / IJN: [id number] /
[2019-01-25 20:07] LABS: Glucose,Whole Blood 210 mg/dL (75-99)
--- NOTE | 2019-01-25 22:02 | PN ---
PROGRESS NOTE CHIEF COMPLAINT: Uncontrolled cough and shortness of breath HISTORY OF PRESENT ILLNESS: This lady is feeling slightly better, but she is still very congested and has a tight cough. PHYSICAL EXAM: Her chest is fairly clear except for occasional rhonchi. Cardiac exam is normal. Abdomen is soft, nontender. IMPRESSION: 1. Respiratory failure. 2. Tracheobronchitis. PLAN: Continue with current treatment until she is able to be discharged. MMODL / IJN: [id number] /
[2019-01-25] MEDS: LEVOFLOXACIN 500 MG TAB PO SCH (22:41)
[2019-01-26] MEDS: methylPREDNISolone SOD SUCCI 40 MG/ML 1 ML VIAL IV SCH ×4 (00:13→23:15)
[2019-01-26] MEDS: SODIUM CHLORIDE 0.9% 1,000 ML IV SCH ×2 (06:15→17:13)
[2019-01-26 07:13] LABS: Glucose,Whole Blood 142 mg/dL (75-99)
[2019-01-26] MEDS: BUDESONIDE 0.5 MG/2 ML NEBU INHALATION SCH ×2 (07:45→20:04)
[2019-01-26] MEDS: IPRATROPIUM-ALBUTEROL 3 ML NEB INHALATION SCH ×4 (07:45→20:04)
[2019-01-26] MEDS: CARVEDILOL 6.25 MG TAB PO SCH ×2 (08:31→17:13)
[2019-01-26] MEDS: METOPROLOL SUCCINATE (ER) 25 MG TAB.ER.24H PO SCH ×2 (08:31→21:12)
[2019-01-26] MEDS: amLODIPine 5 MG TAB PO SCH ×2 (08:31→21:13)
[2019-01-26] MEDS: INSULIN ASPART (NovoLOG) 100 UNIT/ML VIAL SQ SCH ×4 (08:32→21:13)
[2019-01-26] MEDS: ASPIRIN 81 MG PO SCH (08:32)
[2019-01-26] MEDS: PANTOPRAZOLE 40 MG/10 ML VIAL IV SCH (08:32)
[2019-01-26] MEDS: FUROSEMIDE 20 MG TAB PO SCH ×2 (08:32→17:13)
[2019-01-26] MEDS: FLUTICASONE 50MCG/SPRAY NASAL 16GM EA NOSTRIL SCH (08:32)
[2019-01-26] MEDS: Acetaminophen-Codeine 300-30mg TAB PO PRN ×2 (08:41→18:32)
[2019-01-26 11:39] LABS: Glucose,Whole Blood 166 mg/dL (75-99)
--- NOTE | 2019-01-26 15:17 | PN ---
PROGRESS NOTE CHIEF COMPLAINT: Bronchitis, pneumonitis and exacerbation of COPD. HISTORY OF PRESENT ILLNESS: This lady is improving. She is still congested, but less short of breath. PHYSICAL EXAMINATION: Vital signs are normal. Chest still demonstrates scattered rales and rhonchi throughout with productive cough and inspiratory and expiratory wheezing. Cardiac exam is normal. IMPRESSION: 1. Reactive airway disease. 2. Bronchitis. 3. Chronic obstructive pulmonary disease. PLAN: She will probably be able to be discharged in the next day or two. MMMARY GRACEL / CHANTALN: [id number] /
[2019-01-26] MEDS: PROMETHAZ-COD 6.25-10 MG/5 ML 5 ML CUP PO PRN ×2 (16:09→21:45)
[2019-01-26 16:58] LABS: Glucose,Whole Blood 157 mg/dL (75-99)
[2019-01-26 21:13] LABS: Glucose,Whole Blood 176 mg/dL (75-99)
[2019-01-26] MEDS: LEVOFLOXACIN 500 MG TAB PO SCH (21:44)
[2019-01-27] MEDS: SODIUM CHLORIDE 0.9% 1,000 ML IV SCH (02:26)
[2019-01-27] MEDS: PROMETHAZ-COD 6.25-10 MG/5 ML 5 ML CUP PO PRN (04:33)
[2019-01-27 05:23] VITALS: BP 128/77; RESP 18; TEMP 97
[2019-01-27 07:09] LABS: Glucose,Whole Blood 152 mg/dL (75-99)
[2019-01-27] MEDS: IPRATROPIUM-ALBUTEROL 3 ML NEB INHALATION SCH ×3 (07:23→15:26)
[2019-01-27] MEDS: BUDESONIDE 0.5 MG/2 ML NEBU INHALATION SCH (07:23)
[2019-01-27] MEDS ORDERED: PANTOPRAZOLE 40 MG TABLET PO SCH (07:30)
[2019-01-27] MEDS: ASPIRIN 81 MG PO SCH (08:46)
[2019-01-27] MEDS: FUROSEMIDE 20 MG TAB PO SCH (08:46)
[2019-01-27] MEDS: METOPROLOL SUCCINATE (ER) 25 MG TAB.ER.24H PO SCH (08:46)
[2019-01-27] MEDS: methylPREDNISolone SOD SUCCI 40 MG/ML 1 ML VIAL IV SCH (08:46)
[2019-01-27] MEDS: amLODIPine 5 MG TAB PO SCH (08:46)
[2019-01-27] MEDS: FLUTICASONE 50MCG/SPRAY NASAL 16GM EA NOSTRIL SCH (08:47)
[2019-01-27] MEDS: INSULIN ASPART (NovoLOG) 100 UNIT/ML VIAL SQ SCH ×2 (08:47→12:59)
[2019-01-27] MEDS: Acetaminophen-Codeine 300-30mg TAB PO PRN (08:47)
[2019-01-27] MEDS: CARVEDILOL 6.25 MG TAB PO SCH (08:48)
[2019-01-27 11:45] VITALS: PULSE 78
[2019-01-27 11:49] LABS: Glucose,Whole Blood 130 mg/dL (75-99)
--- NOTE | 2019-01-27 16:22 | DS ---
DISCHARGE SUMMARY CHIEF COMPLAINT: Tracheobronchitis, difficulty breathing and exacerbation of chronic obstructive pulmonary disease. HISTORY OF PRESENT ILLNESS AND PHYSICAL EXAM: Details of this lady's history and physical can be found in the initial workup. LABORATORY STUDIES: While she was in a hospital she had laboratory studies, details of which can be found in the laboratory section of her chart. COURSE IN HOSPITAL: After admission she was placed on bedrest with intravenous fluids and IV inhaled steroids. She improved slowly. She was also placed on antibiotics. She continued to have some shortness of breath and mild congestion, but she was greatly improved. It was felt that she could go home on the . She will go home on her usual activity, diet and medication. She will follow up in several days. She will be kept on her usual medications and will also be sent home on Levaquin. FINAL DIAGNOSES: 1. Exacerbation of chronic obstructive pulmonary disease. 2. Intractable laryngotracheobronchitis. 3. History of arthritis. 4. History of depression. 5. History of attention deficit disorder. 6. Hypertension. OPERATIONS: None. CONSULTATIONS: None. She is improved. MMODL / IJN: [id number] /
[2019-01-28] MEDS ORDERED: methylPREDNISolone 4 MG TAB TAPER PO SCH (09:00)
== END 2019-01-27 15:30 | disposition home or self-care (01) | DRG 190 ==
LOC: EC 10:19 → 4MS4W 14:05 → 6PED 01-27 13:32 → 4MS4W 01-27 14:00
PROVIDERS: ADMIT Family Medicine; ATTEND Family Medicine
DX: J44.1 Chronic obstructive pulmonary disease with (acute) exacerbation (principal); J96.90 Respiratory failure, unspecified, unspecified whether with hypoxia or hypercapnia; J40 Bronchitis, not specified as acute or chronic; I25.2 Old myocardial infarction; I11.0 Hypertensive heart disease with heart failure; I50.9 Heart failure, unspecified; E11.9 Type 2 diabetes mellitus without complications; F31.9 Bipolar disorder, unspecified; Z79.1 Long term (current) use of non-steroidal anti-inflammatories (NSAID); Z79.82 Long term (current) use of aspirin; Z80.0 Family history of malignant neoplasm of digestive organs; Z95.5 Presence of coronary angioplasty implant and graft; R25.1 Tremor, unspecified; M19.90 Unspecified osteoarthritis, unspecified site; F98.8 Other specified behavioral and emotional disorders with onset usually occurring in childhood and adolescence; Z88.8 Allergy status to other drugs, medicaments and biological substances
CPT/HCPCS: 36415; 71046; 80048; 83605; 85025; 87040; 93005; 94640; 94760; 96361; 96374; 96375; 99285

== ENCOUNTER 2019-03-24 15:29 | Observation (INO) | payer MEDICARE, OTHER ==
[2019-03-24] MEDS ORDERED: IPRATROPIUM-ALBUTEROL 3 ML NEB INHALATION STA ×2 (16:01→18:11)
--- NOTE | 2019-03-24 16:04 | ED ---
General Adult HPI - General Chief complaint: Shortness of Breath Stated complaint: SOB Time Seen by Provider: 03/24/19 15:57 Source: patient, RN notes reviewed, old records reviewed Mode of arrival: wheelchair Limitations: no limitations - History of Present Illness Initial comments: 73-year-old female presents for evaluation of cough and dyspnea. Patient states she has had productive cough with yellow sputum for the past 8 days. She had hospital admission with pneumonia approximately one month ago. She denies central chest pain. She denies weight gain. She denies lower extremity pain or swelling. She has had fever and chills at home. No abdominal pain nausea vomiting. - Related Data Home Medications Medication Instructions Recorded Confirmed Furosemide [Lasix] 20 mg PO BID 01/09/16 03/24/19 Simvastatin [Zocor] 40 mg PO DAILY 07/03/16 03/24/19 oxyCODONE-APAP 10-325MG [Percocet 1 tab PO QID PRN 07/03/16 03/24/19 10-325 mg] Aspirin EC [Ecotrin Low Dose] 81 mg PO DAILY 08/09/17 03/24/19 Metoprolol Succinate [Toprol XL] 25 mg PO BID 08/09/17 03/24/19 amLODIPine [Norvasc] 5 mg PO BID 08/09/17 03/24/19 metFORMIN HCL [Glucophage] 500 mg PO AC-TID 08/09/17 03/24/19 Celecoxib [CeleBREX] 200 mg PO DAILY 01/24/19 03/24/19 Citalopram Hydrobromide [CeleXA] 40 mg PO DAILY 01/24/19 03/24/19 Dextroamphetamine/Amphetamine 20 mg PO BID 01/24/19 03/24/19 [Adderall] Folic Acid 1 mg PO DAILY 01/24/19 03/24/19 ALPRAZolam [Xanax] 1 mg PO BID PRN 03/24/19 03/24/19 Carvedilol [Coreg] 6.25 mg PO BID 03/24/19 03/24/19 Hydrochlorothiazide 25 mg PO DAILY 03/24/19 03/24/19 Previous Rx's Medication Instructions Recorded Pantoprazole [Protonix] 40 mg PO AC-BID #60 tablet. 09/13/17 Allergies Allergy/AdvReac Type Severity Reaction Status Date / Time atorvastatin calcium AdvReac MUSCLE Verified 03/24/19 17:08 [From Lipitor] ACHES Review of Systems ROS Statement: Those systems with pertinent positive or pertinent negative responses have been documented in the HPI. ROS Other: All systems not noted in ROS Statement are negative. Past Medical History Past Medical History: Heart Failure, Diabetes Mellitus, Hypertension, Myocardial Infarction ([place]) Additional Past Medical History / Comment(s): had mental breakdown several years ago and admitted for treatment Last Myocardial Infarction Date:: 01/16/14 History of Any Multi-Drug Resistant Organisms: None Reported Past Surgical History: Section, Heart Catheterization With Stent, Orthopedic Surgery Additional Past Surgical History / Comment(s): cervical fusion, shoulder repair on the right Past Anesthesia/Blood Transfusion Reactions: No Reported Reaction Date of Last Stent Placement:: 2013 Past Psychological History: Anxiety, Bipolar, Depression Smoking Status: Never smoker Past Alcohol Use History: None Reported Past Drug Use History: None Reported - Past Family History Mother Family Medical History: Dementia Additional Family Medical History / Comment(s): mac degeneration of the eyes. states mother at the age of 94 Father Family Medical History: Cancer Additional Family Medical History / Comment(s): Stomach CA General Exam Limitations: no limitations General appearance: alert, in no apparent distress Head exam: Present: atraumatic, normocephalic Eye exam: Present: normal appearance, PERRL ENT exam: Present: normal exam Neck exam: Present: normal inspection. Absent: tenderness, meningismus Respiratory exam: Present: respiratory distress, other (Bronchospastic cough) Cardiovascular Exam: Present: regular rate, normal rhythm GI/Abdominal exam: Present: soft. Absent: distended, tenderness Extremities exam: Present: normal inspection, normal capillary refill. Absent: pedal edema, calf tenderness Neurological exam: Present: alert, oriented X3, CN II-XII intact. Absent: motor sensory deficit Psychiatric exam: Present: normal affect, normal mood Skin exam: Present: warm, dry, intact. Absent: cyanosis, diaphoretic Course Vital Signs 03/24/19 03/24/19 03/24/19 15:45 16:10 16:15 Temperature 98.9 F 98.7 F Pulse Rate 82 82 90 Respiratory 20 16 Rate Blood Pressure 130/65 149/74 O2 Sat by Pulse 97 96 Oximetry 03/24/19 03/24/19 03/24/19 16:25 17:14 17:30 Temperature Pulse Rate 94 Respiratory Rate Blood Pressure 149/74 O2 Sat by Pulse 98 96 Oximetry 03/24/19 19:11 Temperature Pulse Rate 83 Respiratory 20 Rate Blood Pressure 155/96 O2 Sat by Pulse 96 Oximetry EKG Findings - EKG Comments: EKG Findings:: EKG: Normal sinus rhythm, rate of 80, ME interval 148, QRS duration 84, QTC 452, no ST segment elevation Medical Decision Making - Medical Decision Making 73-year-old female presenting for evaluation of cough and dyspnea. She has history of congestive heart failure, denies weight gain, denies orthopnea. She has had productive cough. Subjective fever and chills. She is overall well-appearing. She has bronchospastic cough and decreased air entry bilaterally. She has normal CBC, negative d-dimer, negative troponin, negative BNP. She has normal electrolytes. EKG is nonischemic. Chest x-ray negative for focal pneumonia. She has persistent bronchospastic cough despite treatment. She has moderate respiratory distress. She will be admitted with treatment for reactive airway disease, suspect underlying COPD. - Lab Data Result diagrams: 03/24/19 16:15 03/24/19 16:15 Lab Results 03/24/19 03/24/19 03/24/19 Range/Units 16:15 16:15 16:15 WBC 9.6 (3.8-10.6) k/uL RBC 3.97 (3.80-5.40) m/uL Hgb 11.5 (11.4-16.0) gm/dL Hct 35.2 (34.0-46.0) % MCV 88.7 (80.0-100.0) fL MCH 29.0 (25.0-35.0) pg MCHC 32.6 (31.0-37.0) g/dL RDW 14.2 (11.5-15.5) % Plt Count 215 (150-450) k/uL Neutrophils % 59 % Lymphocytes % 26 % Monocytes % 6 % Eosinophils % 5 % Basophils % 1 % Neutrophils # 5.7 (1.3-7.7) k/uL Lymphocytes # 2.5 (1.0-4.8) k/uL Monocytes # 0.6 (0-1.0) k/uL Eosinophils # 0.5 (0-0.7) k/uL Basophils # 0.1 (0-0.2) k/uL PT (9.0-12.0) sec INR (<1.2) APTT (22.0-30.0) sec D-Dimer (<0.60) mg/L FEU Sodium 139 (137-145) mmol/L Potassium 4.2 (3.5-5.1) mmol/L Chloride 106 (98-107) mmol/L Carbon Dioxide 24 (22-30) mmol/L Anion Gap 9 mmol/L BUN 11 (7-17) mg/dL Creatinine 0.84 (0.52-1.04) mg/dL Est GFR (CKD-EPI)AfAm 80 (>60 ml/min/1.73 sqM) Est GFR (CKD-EPI)NonAf 70 (>60 ml/min/1.73 sqM) Glucose 105 H (74-99) mg/dL Plasma Lactic Acid Brijesh (0.7-2.0) mmol/L Calcium 8.9 (8.4-10.2) mg/dL Magnesium 2.1 (1.6-2.3) mg/dL Total Bilirubin 0.5 (0.2-1.3) mg/dL AST 21 (14-36) U/L ALT 14 (9-52) U/L Alkaline Phosphatase 93 (38-126) U/L Troponin I (0.000-0.034) ng/mL NT-Pro-B Natriuret Pep 352 pg/mL Total Protein 6.7 (6.3-8.2) g/dL Albumin 4.1 (3.5-5.0) g/dL 03/24/19 03/24/19 03/24/19 Range/Units 16:15 16:15 16:15 WBC (3.8-10.6) k/uL RBC (3.80-5.40) m/uL Hgb (11.4-16.0) gm/dL Hct (34.0-46.0) % MCV (80.0-100.0) fL MCH (25.0-35.0) pg MCHC (31.0-37.0) g/dL RDW (11.5-15.5) % Plt Count (150-450) k/uL Neutrophils % % Lymphocytes % % Monocytes % % Eosinophils % % Basophils % % Neutrophils # (1.3-7.7) k/uL Lymphocytes # (1.0-4.8) k/uL Monocytes # (0-1.0) k/uL Eosinophils # (0-0.7) k/uL Basophils # (0-0.2) k/uL PT 9.9 (9.0-12.0) sec INR 0.9 (<1.2) APTT 23.0 (22.0-30.0) sec D-Dimer (<0.60) mg/L FEU Sodium (137-145) mmol/L Potassium (3.5-5.1) mmol/L Chloride (98-107) mmol/L Carbon Dioxide (22-30) mmol/L Anion Gap mmol/L BUN (7-17) mg/dL Creatinine (0.52-1.04) mg/dL Est GFR (CKD-EPI)AfAm (>60 ml/min/1.73 sqM) Est GFR (CKD-EPI)NonAf (>60 ml/min/1.73 sqM) Glucose (74-99) mg/dL Plasma Lactic Acid Brijesh 0.7 (0.7-2.0) mmol/L Calcium (8.4-10.2) mg/dL Magnesium (1.6-2.3) mg/dL Total Bilirubin (0.2-1.3) mg/dL AST (14-36) U/L ALT (9-52) U/L Alkaline Phosphatase (38-126) U/L Troponin I <0.012 (0.000-0.034) ng/mL NT-Pro-B Natriuret Pep pg/mL Total Protein (6.3-8.2) g/dL Albumin (3.5-5.0) g/dL 03/24/19 Range/Units 16:15 WBC (3.8-10.6) k/uL RBC (3.80-5.40) m/uL Hgb (11.4-16.0) gm/dL Hct (34.0-46.0) % MCV (80.0-100.0) fL MCH (25.0-35.0) pg MCHC (31.0-37.0) g/dL RDW (11.5-15.5) % Plt Count (150-450) k/uL Neutrophils % % Lymphocytes % % Monocytes % % Eosinophils % % Basophils % % Neutrophils # (1.3-7.7) k/uL Lymphocytes # (1.0-4.8) k/uL Monocytes # (0-1.0) k/uL Eosinophils # (0-0.7) k/uL Basophils # (0-0.2) k/uL PT (9.0-12.0) sec INR (<1.2) APTT (22.0-30.0) sec D-Dimer 0.38 (<0.60) mg/L FEU Sodium (137-145) mmol/L Potassium (3.5-5.1) mmol/L Chloride (98-107) mmol/L Carbon Dioxide (22-30) mmol/L Anion Gap mmol/L BUN (7-17) mg/dL Creatinine (0.52-1.04) mg/dL Est GFR (CKD-EPI)AfAm (>60 ml/min/1.73 sqM) Est GFR (CKD-EPI)NonAf (>60 ml/min/1.73 sqM) Glucose (74-99) mg/dL Plasma Lactic Acid Brijesh (0.7-2.0) mmol/L Calcium (8.4-10.2) mg/dL Magnesium (1.6-2.3) mg/dL Total Bilirubin (0.2-1.3) mg/dL AST (14-36) U/L ALT (9-52) U/L Alkaline Phosphatase (38-126) U/L Troponin I (0.000-0.034) ng/mL NT-Pro-B Natriuret Pep pg/mL Total Protein (6.3-8.2) g/dL Albumin (3.5-5.0) g/dL Disposition Clinical Impression: Acute exacerbation of chronic obstructive airways disease Disposition: ADMITTED IP TO THIS HOSP Condition: Stable Is patient prescribed a controlled substance at d/c from ED?: No Referrals: Virgil Campuzano MD [Primary Care Provider] - 1-2 days Decision to Admit Reason: Admit from EC Decision Date: 03/24/19 Decision Time: 19:19
[2019-03-24 16:28] LABS: Basophils # (A) 0.1 k/uL (0-0.2); Basophils % (A) 1 %; Eosinophils # (A) 0.5 k/uL (0-0.7); Eosinophils % (A) 5 %; HCT 35.2 % (34.0-46.0); HGB 11.5 gm/dL (11.4-16.0); Lymphocytes # (A) 2.5 k/uL (1.0-4.8); Lymphocytes % (A) 26 %; MCHC 32.6 g/dL (31.0-37.0); MCV 88.7 fL (80.0-100.0); Mean Platelet Volume 9.8; Monocytes # (A) 0.6 k/uL (0-1.0); Monocytes % (A) 6 %; Neutrophils # (A) 5.7 k/uL (1.3-7.7); Neutrophils % (A) 59 %; Platelet Count 215 k/uL (150-450); RBC 3.97 m/uL (3.80-5.40); RDW 14.2 % (11.5-15.5); WBC 9.6 k/uL (3.8-10.6)
--- NOTE | 2019-03-24 16:37 | XR ---
EXAMINATION TYPE: XR chest 2V DATE OF EXAM: 03/24/2019 COMPARISON: 01/24/2019 HISTORY: Difficulty breathing TECHNIQUE: Frontal and lateral views of the chest are obtained. FINDINGS: Heart and mediastinum are normal. Lungs are clear. Diaphragm is normal. Bony thorax is int act. IMPRESSION: Normal chest. No change.
[2019-03-24 16:38] LABS: Albumin 4.1 g/dL (3.5-5.0); Calcium 8.9 mg/dL (8.4-10.2); INR 0.9 (<1.2); Magnesium 2.1 mg/dL (1.6-2.3); Potassium 4.2 mmol/L (3.5-5.1); Prothrombin Time 9.9 sec (9.0-12.0); Total Bilirubin 0.5 mg/dL (0.2-1.3); Total Protein 6.7 g/dL (6.3-8.2)
[2019-03-24] MEDS ORDERED: DEXAMETHASONE SOD PHOSPHATE 10 MG/ML 1 ML VIAL IV STA (18:11)
[2019-03-24] MEDS ORDERED: AZITHROMYCIN 500 MG in SODIUM CHLORIDE 0.9% 250 ML IVPB STA (18:11)
[2019-03-24] MEDS ORDERED: IPRATROPIUM-ALBUTEROL 3 ML NEB INHALATION PRN (19:15)
[2019-03-24] MEDS: oxyCODONE-APAP 10-325MG 1 EACH TAB PO PRN (21:20)
[2019-03-24] MEDS: FUROSEMIDE 20 MG TAB PO SCH (21:55)
[2019-03-24] MEDS: CARVEDILOL 6.25 MG TAB PO SCH (21:55)
[2019-03-24] MEDS: methylPREDNISolone SOD SUCCI 125 MG/2 ML VIAL IV SCH (23:01)
[2019-03-24] MEDS: amLODIPine 5 MG TAB PO SCH (23:01)
[2019-03-24] MEDS: ALPRAZolam 1 MG TAB PO PRN (23:04)
[2019-03-25] MEDS: methylPREDNISolone SOD SUCCI 125 MG/2 ML VIAL IV SCH ×3 (05:25→17:23)
[2019-03-25] MEDS: metFORMIN 500 MG TAB PO SCH ×3 (07:38→17:23)
[2019-03-25] MEDS: CARVEDILOL 6.25 MG TAB PO SCH ×2 (07:38→17:23)
[2019-03-25] MEDS: FUROSEMIDE 20 MG TAB PO SCH ×2 (07:39→16:03)
[2019-03-25] MEDS: ASPIRIN 81 MG PO SCH (07:39)
[2019-03-25] MEDS: AZITHROMYCIN 500 MG TAB PO SCH (07:39)
[2019-03-25] MEDS: amLODIPine 5 MG TAB PO SCH ×2 (07:39→20:03)
[2019-03-25] MEDS: NON-FORMULARY DRUG (Simvastatin 40 MG) PO SCH (07:41)
[2019-03-25] MEDS: IPRATROPIUM-ALBUTEROL 3 ML NEB INHALATION SCH ×4 (07:53→20:13)
[2019-03-25] MEDS: PANTOPRAZOLE 40 MG TABLET PO SCH ×2 (08:53→17:23)
[2019-03-25] MEDS: oxyCODONE-APAP 10-325MG 1 EACH TAB PO PRN ×2 (09:45→19:12)
[2019-03-25] MEDS: CITALOPRAM HYDROBROMIDE 20 MG TAB PO SCH (18:24)
[2019-03-25] MEDS: FOLIC ACID 1 MG TAB PO SCH (19:12)
[2019-03-25] MEDS ORDERED: METOPROLOL SUCCINATE (ER) 25 MG TAB.ER.24H PO SCH (21:00)
[2019-03-25 21:28] VITALS: RESP 16; TEMP 97.9
[2019-03-25] MEDS: ALPRAZolam 1 MG TAB PO PRN (22:33)
[2019-03-26] MEDS ORDERED: PATIENT'S OWN (Dextroamphetamine/Amphetamine [Adderall] 20 MG) PO SCH (08:00)
[2019-03-26] MEDS: IPRATROPIUM-ALBUTEROL 3 ML NEB INHALATION SCH ×2 (08:02→11:36)
[2019-03-26 08:09] VITALS: PULSE 80
[2019-03-26] MEDS: ASPIRIN 81 MG PO SCH (08:15)
[2019-03-26] MEDS: CARVEDILOL 6.25 MG TAB PO SCH (08:15)
[2019-03-26] MEDS: metFORMIN 500 MG TAB PO SCH (08:15)
[2019-03-26] MEDS: AZITHROMYCIN 500 MG TAB PO SCH (08:15)
[2019-03-26] MEDS: amLODIPine 5 MG TAB PO SCH (08:15)
[2019-03-26] MEDS: PANTOPRAZOLE 40 MG TABLET PO SCH (08:15)
[2019-03-26] MEDS: FUROSEMIDE 20 MG TAB PO SCH (08:16)
[2019-03-26] MEDS: FOLIC ACID 1 MG TAB PO SCH (08:16)
[2019-03-26] MEDS: CITALOPRAM HYDROBROMIDE 20 MG TAB PO SCH (08:16)
[2019-03-26] MEDS ORDERED: predniSONE 20 MG TAB PO SCH (09:00)
[2019-03-26 09:24] VITALS: BP 111/59
[2019-03-26] MEDS: NON-FORMULARY DRUG (Simvastatin 40 MG) PO SCH (10:23)
--- NOTE | 2019-03-26 11:28 | P.HPIM ---
History of Present Illness H&P Date: 03/25/19 71-year-old pleasant female came in with comments of cough with sputum production along with sinus drainage with greenish drainage from the patient is found to be wheezing patient underwent did not have any history of asthma doesn't have any history of COPD he doesn't smoke patient was started on IV IV steroids and azithromycin. Patient any fever chills nausea vomiting patient doesn't have any pneumonia on the chest x-ray. She does have minimal shortness of breath associated with that Review of Systems REVIEW OF SYSTEMS: CONSTITUTIONAL: No fever, no malaise, no fatigue. HEENT: No recent visual problems or hearing problems. Denied any sore throat. CARDIOVASCULAR: No chest pain, orthopnea, PND, no palpitations, no syncope. PULMONARY: no hemoptysis. GASTROINTESTINAL: No diarrhea, no nausea, no vomiting, no abdominal pain. NEUROLOGICAL: No headaches, no weakness, no numbness. HEMATOLOGICAL: Denies any bleeding or petechiae. GENITOURINARY: Denies any burning micturition, frequency, or urgency. MUSCULOSKELETAL/RHEUMATOLOGICAL: Denies any joint pain, swelling, or any muscle pain. ENDOCRINE: Denies any polyuria or polydipsia. The rest of the 14-point review of systems is negative. Past Medical History Past Medical History: Heart Failure, Diabetes Mellitus, Hypertension, Myocardial Infarction ([place]) Additional Past Medical History / Comment(s): Had mental breakdown several years ago and admitted for treatment. Pre-diabetic, patient has new-onset tremors with illness. ADHD and hyperlipidemia Last Myocardial Infarction Date:: 01/16/14 History of Any Multi-Drug Resistant Organisms: None Reported Past Surgical History: Section, Heart Catheterization With Stent, Orthopedic Surgery Additional Past Surgical History / Comment(s): Cervical fusion, shoulder repair on the right Past Anesthesia/Blood Transfusion Reactions: No Reported Reaction Date of Last Stent Placement:: 2013 Past Psychological History: ADD/ADHD, Anxiety, Bipolar, Depression Smoking Status: Never smoker Past Alcohol Use History: None Reported Past Drug Use History: None Reported - Past Family History Mother Family Medical History: Dementia Additional Family Medical History / Comment(s): mac degeneration of the eyes. states mother at the age of 94 Father Family Medical History: Cancer Additional Family Medical History / Comment(s): Stomach CA Medications and Allergies Home Medications Medication Instructions Recorded Confirmed Type Furosemide [Lasix] 20 mg PO BID 01/09/16 03/24/19 History Simvastatin [Zocor] 40 mg PO DAILY 07/03/16 03/24/19 History oxyCODONE-APAP 10-325MG [Percocet 1 tab PO QID PRN 07/03/16 03/24/19 History 10-325 mg] Aspirin EC [Ecotrin Low Dose] 81 mg PO DAILY 08/09/17 03/24/19 History Metoprolol Succinate [Toprol XL] 25 mg PO BID 08/09/17 03/24/19 History metFORMIN HCL [Glucophage] 500 mg PO AC-TID 08/09/17 03/24/19 History Pantoprazole [Protonix] 40 mg PO AC-BID #60 tablet.dr 09/13/17 03/24/19 Rx Celecoxib [CeleBREX] 200 mg PO DAILY 01/24/19 03/24/19 History Citalopram Hydrobromide [CeleXA] 40 mg PO DAILY 01/24/19 03/24/19 History Dextroamphetamine/Amphetamine 20 mg PO BID 01/24/19 03/24/19 History [Adderall] Folic Acid 1 mg PO DAILY 01/24/19 03/24/19 History ALPRAZolam [Xanax] 1 mg PO BID PRN 03/24/19 03/24/19 History Carvedilol [Coreg] 6.25 mg PO BID 03/24/19 03/24/19 History Cefuroxime Axetil [Ceftin] 500 mg PO BID 5 Days #10 tab 03/26/19 Rx amLODIPine [Norvasc] 5 mg PO DAILY #0 03/26/19 03/24/19 Rx predniSONE 10 mg PO DAILY #20 tab 03/26/19 Rx Allergies Allergy/AdvReac Type Severity Reaction Status Date / Time atorvastatin calcium AdvReac MUSCLE Verified 03/24/19 17:08 [From Lipitor] ACHES Physical Exam Vitals: Vital Signs Temp Pulse Pulse Resp BP Pulse Ox 03/26/19 08:15 111/59 03/26/19 08:09 80 16 03/26/19 08:02 85 16 95 03/26/19 04:54 97.9 F 83 16 115/63 91 L 03/25/19 21:00 97.9 F 89 16 122/66 93 L 03/25/19 20:28 80 03/25/19 20:14 81 95 03/25/19 17:20 126/58 03/25/19 16:38 86 03/25/19 16:29 82 03/25/19 15:57 81 03/25/19 12:25 80 03/25/19 12:12 76 03/25/19 11:56 97.2 F L 74 17 112/66 96 Intake and Output 03/25/19 03/26/19 03/26/19 22:59 06:59 14:59 Intake Total 540 540 Balance 540 540 Intake: Oral 540 540 Other: Voiding Method Toilet Toilet # Voids 2 2 Weight 102.5 kg PHYSICAL EXAMINATION: GENERAL: The patient is alert and oriented x3, not in any acute distress. Well developed, well nourished. HEENT: Pupils are round and equally reacting to light. EOMI. No scleral icterus. No conjunctival pallor. Normocephalic, atraumatic. No pharyngeal erythema. No thyromegaly. Patient does have sinus congestion CARDIOVASCULAR: S1 and S2 present. No murmurs, rubs, or gallops. PULMONARY: No expiratory wheeze on exam no crackles. ABDOMEN: Soft, nontender, nondistended, normoactive bowel sounds. No palpable organomegaly. MUSCULOSKELETAL: No joint swelling or deformity. EXTREMITIES: No cyanosis, clubbing, or pedal edema. NEUROLOGICAL: Gross neurological examination did not reveal any focal deficits. SKIN: No rashes. Results CBC & Chem 7: 03/24/19 16:15 03/24/19 16:15 Labs: Microbiology - Last 24 Hours (Table) 03/25/19 19:55 Urine Culture - Preliminary Urine,Voided 03/24/19 16:15 Blood Culture - Preliminary Blood No Growth after 24 hours Thrombosis Risk Factor Assmnt - Choose All That Apply Each Factor Represents 1 point: Obesity (BMI >25), Swollen legs (current) Each Risk Factor Represents 2 Points: Age 61-74 years Other congenital or acquired thrombophilia - If yes, enter type in comment: No Thrombosis Risk Factor Assessment Total Risk Factor Score: 4 Thrombosis Risk Factor Assessment Level: Moderate Risk Assessment and Plan Plan: -Possible sinusitis acute along with tracheobronchitis and bronchospasm, patient doesn't have any history of COPD or asthma patient may benefit from pulmonary function testing. Patient continued on steroids and antibiotics. -Type 2 diabetes mellitus -hypertension -History of congestive heart failure although patient is not in acute exacerbation and did not have any quite available unknown whether patient has a diastolic as systolic dysfunction -Coronary artery disease Due to prophylaxis early ambulation
--- NOTE | 2019-03-26 11:29 | P.DS ---
Providers Date of admission: 03/24/19 20:34 Attending physician: Kandi Lobo Primary care physician: Virgil Campuzano MD Hospital Course: Patient is admitted for upper respiratory infection along with sinusitis and the bronchitis patient will be discharged on Ceftin and a short taper of steroids patient doesn't have any history of asthma or COPD patient will benefit from pulmonary function testing patient has reactive bronchospasm PHYSICAL EXAMINATION: GENERAL: The patient is alert and oriented x3, not in any acute distress. Well developed, well nourished. HEENT: Pupils are round and equally reacting to light. EOMI. No scleral icterus. No conjunctival pallor. Normocephalic, atraumatic. No pharyngeal erythema. No thyromegaly. CARDIOVASCULAR: S1 and S2 present. No murmurs, rubs, or gallops. PULMONARY: Chest is clear to auscultation, no wheezing or crackles. ABDOMEN: Soft, nontender, nondistended, normoactive bowel sounds. No palpable organomegaly. MUSCULOSKELETAL: No joint swelling or deformity. EXTREMITIES: No cyanosis, clubbing, or pedal edema. NEUROLOGICAL: Gross neurological examination did not reveal any focal deficits. SKIN: No rashes. He is referred to my [facility] further details Patient Condition at Discharge: Stable Plan - Discharge Summary Discharge Rx Participant: Yes New Discharge Prescriptions: New predniSONE 10 mg PO DAILY #20 tab Cefuroxime Axetil [Ceftin] 500 mg PO BID 5 Days #10 tab Continue Furosemide [Lasix] 20 mg PO BID Simvastatin [Zocor] 40 mg PO DAILY oxyCODONE-APAP 10-325MG [Percocet 10-325 mg] 1 tab PO QID PRN PRN Reason: Pain Metoprolol Succinate [Toprol XL] 25 mg PO BID metFORMIN HCL [Glucophage] 500 mg PO AC-TID Aspirin EC [Ecotrin Low Dose] 81 mg PO DAILY Pantoprazole [Protonix] 40 mg PO AC-BID #60 tablet. Folic Acid 1 mg PO DAILY Dextroamphetamine/Amphetamine [Adderall] 20 mg PO BID Citalopram Hydrobromide [CeleXA] 40 mg PO DAILY Celecoxib [CeleBREX] 200 mg PO DAILY ALPRAZolam [Xanax] 1 mg PO BID PRN PRN Reason: Anxiety Carvedilol [Coreg] 6.25 mg PO BID Changed amLODIPine [Norvasc] 5 mg PO DAILY #0 Discontinued Hydrochlorothiazide 25 mg PO DAILY Discharge Medication List Furosemide [Lasix] 20 mg PO BID 01/09/16 [History] Simvastatin [Zocor] 40 mg PO DAILY 07/03/16 [History] oxyCODONE-APAP 10-325MG [Percocet 10-325 mg] 1 tab PO QID PRN 07/03/16 [History] Aspirin EC [Ecotrin Low Dose] 81 mg PO DAILY 08/09/17 [History] Metoprolol Succinate [Toprol XL] 25 mg PO BID 08/09/17 [History] metFORMIN HCL [Glucophage] 500 mg PO AC-TID 08/09/17 [History] Pantoprazole [Protonix] 40 mg PO AC-BID #60 tablet. 09/13/17 [Rx] Celecoxib [CeleBREX] 200 mg PO DAILY 01/24/19 [History] Citalopram Hydrobromide [CeleXA] 40 mg PO DAILY 01/24/19 [History] Dextroamphetamine/Amphetamine [Adderall] 20 mg PO BID 01/24/19 [History] Folic Acid 1 mg PO DAILY 01/24/19 [History] ALPRAZolam [Xanax] 1 mg PO BID PRN 03/24/19 [History] Carvedilol [Coreg] 6.25 mg PO BID 03/24/19 [History] Cefuroxime Axetil [Ceftin] 500 mg PO BID 5 Days #10 tab 03/26/19 [Rx] amLODIPine [Norvasc] 5 mg PO DAILY #0 03/26/19 [Rx] predniSONE 10 mg PO DAILY #20 tab 03/26/19 [Rx] Follow up Appointment(s)/Referral(s): Virgil Campuzano MD [Primary Care Provider] - 03/28/19 11:30 am () Patient Instructions/Handouts: Cefuroxime (By mouth), Prednisone (By mouth), COPD (Chronic Obstructive Pulmonary Disease) (DC) Discharge Disposition: HOME SELF-CARE
== END 2019-03-26 12:00 | disposition home or self-care (01) ==
LOC: EC 15:29 → 3NMEDONC 20:34
PROVIDERS: ADMIT Internal Medicine; ATTEND Internal Medicine
DX: J06.9 Acute upper respiratory infection, unspecified (principal); J32.9 Chronic sinusitis, unspecified; J40 Bronchitis, not specified as acute or chronic; J98.01 Acute bronchospasm; R06.03 Acute respiratory distress; I11.0 Hypertensive heart disease with heart failure; I50.9 Heart failure, unspecified; I25.2 Old myocardial infarction; E78.5 Hyperlipidemia, unspecified; F90.9 Attention-deficit hyperactivity disorder, unspecified type; F41.9 Anxiety disorder, unspecified; F32.9 Major depressive disorder, single episode, unspecified; E11.9 Type 2 diabetes mellitus without complications; Z95.5 Presence of coronary angioplasty implant and graft; Z98.1 Arthrodesis status; I25.10 Atherosclerotic heart disease of native coronary artery without angina pectoris; M79.89 Other specified soft tissue disorders; E66.9 Obesity, unspecified; Z68.37 Body mass index [BMI] 37.0-37.9, adult; Z87.01 Personal history of pneumonia (recurrent); Z79.1 Long term (current) use of non-steroidal anti-inflammatories (NSAID); Z79.84 Long term (current) use of oral hypoglycemic drugs; Z79.82 Long term (current) use of aspirin; Z79.899 Other long term (current) drug therapy; Z88.8 Allergy status to other drugs, medicaments and biological substances; Z80.0 Family history of malignant neoplasm of digestive organs; Z81.8 Family history of other mental and behavioral disorders; Z83.518 Family history of other specified eye disorder
CPT/HCPCS: 96376; 96366 ×2; 96375 ×2; 96365; 99285; 36415; 94640 ×4; 94760 ×2; 93005; 85379; 83880; 80053; 83605; 83735; 84484; 85025; 85610; 85730; 87040; 87086; 71046; G0378 ×3; J1100; J2930 ×2; J0456; J7512

== ENCOUNTER 2019-11-13 15:28 | Inpatient (IN) | payer MEDICARE, OTHER ==
--- NOTE | 2019-11-13 16:00 | ED ---
Chest Pain HPI - General Chief Complaint: Chest Pain Stated Complaint: Low BP, chest pain Time Seen by Provider: 11/13/19 15:39 Source: patient, family, RN notes reviewed Mode of arrival: wheelchair Limitations: no limitations - History of Present Illness Initial Comments: This is a 74-year-old female history of coronary artery disease and 2 stents back in 2013 who states she's had over last several weeks intermittent episodes of anterior chest pain also she's had blood pressure issues were her blood pressure would be is high in the 120s/60s and as low as 74/50 no new medication she states she drinks a lot of water he has had a headache along with is a different times no fevers chills nausea vomiting she does have sweats with the chest pain however. No other complaints or modifying factors at this time she does state that she is currently pain-free at this time but has had episodes especially one earlier today lasted over an hour. The pain does get as severe as 8/10 in severity when it does come on. MD Complaint: chest pain - Related Data Home Medications Medication Instructions Recorded Confirmed Furosemide [Lasix] 20 mg PO BID 01/09/16 03/24/19 Simvastatin [Zocor] 40 mg PO DAILY 07/03/16 03/24/19 oxyCODONE-APAP 10-325MG [Percocet 1 tab PO QID PRN 07/03/16 03/24/19 10-325 mg] Aspirin EC [Ecotrin Low Dose] 81 mg PO DAILY 08/09/17 03/24/19 Metoprolol Succinate [Toprol XL] 25 mg PO BID 08/09/17 03/24/19 metFORMIN HCL [Glucophage] 500 mg PO AC-TID 08/09/17 03/24/19 Celecoxib [CeleBREX] 200 mg PO DAILY 01/24/19 03/24/19 Citalopram Hydrobromide [CeleXA] 40 mg PO DAILY 01/24/19 03/24/19 Dextroamphetamine/Amphetamine 20 mg PO BID 01/24/19 03/24/19 [Adderall] Folic Acid 1 mg PO DAILY 01/24/19 03/24/19 ALPRAZolam [Xanax] 1 mg PO BID PRN 03/24/19 03/24/19 Carvedilol [Coreg] 6.25 mg PO BID 03/24/19 03/24/19 Previous Rx's Medication Instructions Recorded Pantoprazole [Protonix] 40 mg PO AC-BID #60 tablet. 09/13/17 Cefuroxime Axetil [Ceftin] 500 mg PO BID 5 Days #10 tab 03/26/19 amLODIPine [Norvasc] 5 mg PO DAILY #0 03/26/19 predniSONE 10 mg PO DAILY #20 tab 03/26/19 Allergies Allergy/AdvReac Type Severity Reaction Status Date / Time atorvastatin calcium AdvReac MUSCLE Verified 11/13/19 15:45 [From Lipitor] ACHES Review of Systems ROS Statement: Those systems with pertinent positive or pertinent negative responses have been documented in the HPI. ROS Other: All systems not noted in ROS Statement are negative. EKG Findings - EKG Results: EKG: interpreted by SHREYA, sinus rhythm (Normal sinus rhythm a 69. Interval 150 QRS duration 82 QT since QTC 422/[address]-T wave changes) Past Medical History Past Medical History: Heart Failure, Diabetes Mellitus, Hypertension, Myocardial Infarction ([place]) Additional Past Medical History / Comment(s): Had mental breakdown several years ago and admitted for treatment. Pre-diabetic, patient has new-onset tremors with illness. ADHD and hyperlipidemia Last Myocardial Infarction Date:: 01/16/14 History of Any Multi-Drug Resistant Organisms: None Reported Past Surgical History: Section, Heart Catheterization With Stent, Orthopedic Surgery Additional Past Surgical History / Comment(s): Cervical fusion, shoulder repair on the right Past Anesthesia/Blood Transfusion Reactions: No Reported Reaction Date of Last Stent Placement:: 2013 Past Psychological History: ADD/ADHD, Anxiety, Bipolar, Depression Smoking Status: Never smoker Past Alcohol Use History: None Reported Past Drug Use History: None Reported - Past Family History Mother Family Medical History: Dementia Additional Family Medical History / Comment(s): mac degeneration of the eyes. states mother at the age of 94 Father Family Medical History: Cancer Additional Family Medical History / Comment(s): Stomach CA General Exam - General Exam Comments Initial Comments: Is a well-developed well-nourished awake alert oriented 3 female Limitations: no limitations General appearance: alert, in no apparent distress Head exam: Present: atraumatic, normocephalic, normal inspection Eye exam: Present: normal appearance, PERRL, EOMI. Absent: scleral icterus, conjunctival injection, periorbital swelling ENT exam: Present: normal exam, mucous membranes moist Neck exam: Present: normal inspection, full ROM, other (No stridor JVD or bruits). Absent: tenderness, meningismus, lymphadenopathy Respiratory exam: Present: normal lung sounds bilaterally. Absent: respiratory distress, wheezes, rales, rhonchi, stridor Cardiovascular Exam: Present: regular rate, normal rhythm, normal heart sounds. Absent: systolic murmur, diastolic murmur, rubs, gallop, clicks GI/Abdominal exam: Present: soft, normal bowel sounds. Absent: distended, tenderness, guarding, rebound, rigid Extremities exam: Present: normal inspection, full ROM, normal capillary refill. Absent: tenderness, pedal edema, joint swelling, calf tenderness Back exam: Present: normal inspection Neurological exam: Present: alert, oriented X3, CN II-XII intact Psychiatric exam: Present: normal affect, normal mood Skin exam: Present: warm, dry, intact, normal color. Absent: rash Course Vital Signs 11/13/19 11/13/19 11/13/19 15:35 16:00 17:00 Temperature 99.1 F Pulse Rate 69 64 67 Respiratory 18 18 18 Rate Blood Pressure 148/67 148/67 123/83 O2 Sat by Pulse 98 98 98 Oximetry Chest Pain MDM - MDM I did review the imaging and report no evidence of acute findings. The patient's has had no further chest pain since her arrival however the symptoms she's been having or past 3 weeks are consistent with unstable angina. After long discussion with the patient and her patient be admitted for evaluation by cardiology. The patient is case will be discussed with Dr. Leon. Disposition Clinical Impression: Unstable angina pectoris, Chest pain Disposition: ADMITTED IP TO THIS HOSP Condition: Fair Referrals: Virgil Campuzano MD [Primary Care Provider] - 1-2 days
[2019-11-13 16:14] LABS: Basophils # (A) 0.2 k/uL (0-0.2); Basophils % (A) 2 %; Eosinophils # (A) 0.3 k/uL (0-0.7); Eosinophils % (A) 3 %; HCT 41.3 % (34.0-46.0); HGB 13.3 gm/dL (11.4-16.0); Lymphocytes # (A) 2.6 k/uL (1.0-4.8); Lymphocytes % (A) 26 %; MCH 28.8 pg (25.0-35.0); MCHC 32.2 g/dL (31.0-37.0); MCV 89.5 fL (80.0-100.0); Mean Platelet Volume 11.4; Monocytes # (A) 0.6 k/uL (0-1.0); Monocytes % (A) 6 %; Neutrophils # (A) 6.1 k/uL (1.3-7.7); Neutrophils % (A) 61 %; Platelet Count 221 k/uL (150-450); RBC 4.61 m/uL (3.80-5.40); RDW 13.4 % (11.5-15.5)
--- NOTE | 2019-11-13 16:19 | XR ---
EXAMINATION TYPE: XR chest 2V DATE OF EXAM: 11/13/2019 COMPARISON: 03/24/2019 HISTORY: 74-year-old female with chest pain TECHNIQUE: PA and lateral views FINDINGS: The cardiomediastinal silhouette, aorta, and pulmonary vasculature are within normal limits. Mild int erstitial prominence is a chronic appearance. No consolidation or pleural effusion. ACDF hardware. IMPRESSION: Chronic changes without acute cardiopulmonary process.
[2019-11-13 16:32] LABS: Albumin 4.6 g/dL (3.5-5.0); Calcium 9.6 mg/dL (8.4-10.2); Magnesium 1.9 mg/dL (1.6-2.3); Total Bilirubin 0.6 mg/dL (0.2-1.3); Total Protein 7.6 g/dL (6.3-8.2)
[2019-11-13 16:43] LABS: D-Dimer 0.4 mg/L FEU (<0.60); INR 0.9 (<1.2); Partial Thromboplastin Time 23.3 sec (22.0-30.0); Prothrombin Time 9.9 sec (9.0-12.0)
[2019-11-13] MEDS ORDERED: ASPIRIN 81 MG PO STA (17:15)
[2019-11-13] MEDS ORDERED: NITROGLYCERIN SL TABS 0.4 MG TAB SUBLINGUAL PRN (17:15)
[2019-11-13] MEDS ORDERED: CARVEDILOL 6.25 MG TAB PO SCH (17:30)
[2019-11-13] MEDS: HEPARIN SODIUM,PORCINE 5,000 UNIT/ML 1 ML VIAL IV ONE ×2 (17:39→17:46)
[2019-11-13] MEDS: metFORMIN 500 MG TAB PO SCH ×2 (17:39→19:13)
[2019-11-13] MEDS: PANTOPRAZOLE 40 MG TABLET PO SCH ×2 (17:39→18:55)
[2019-11-13] MEDS ORDERED: HEPARIN SOD,PORK IN 0.45% NACL 25,000 UNIT in 0.45% NACL 1 250ML.BAG IV SCH (17:45)
[2019-11-13] MEDS ORDERED: FUROSEMIDE 20 MG TAB PO SCH (18:00)
[2019-11-13] MEDS ORDERED: LACTATED RINGERS 1,000 ML IV SCH (18:00)
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
[2019-11-13] MEDS ORDERED: ALBUTEROL NEBULIZED 2.5 MG/3 ML INHALATION PRN (18:11)
[2019-11-13] MEDS: oxyCODONE-APAP 10-325MG 1 EACH TAB PO PRN (18:29)
--- NOTE | 2019-11-13 19:29 | XR ---
EXAMINATION TYPE: XR thoracic spine 2V DATE OF EXAM: 11/13/2019 COMPARISON: NONE HISTORY: Compression fracture TECHNIQUE: 3 views FINDINGS: Thoracic vertebra have normal alignment. Posterior elements are intact. There is no paraspi nal mass. There is no evidence of a compression fracture. There is mild spurring of the endplates. IMPRESSION: Negative exam. No fracture seen.
[2019-11-13] MEDS: SYMBICORT 80-4.5 MCG INHALER INHALATION SCH (20:25)
[2019-11-13 20:41] LABS: Glucose,Whole Blood 129 mg/dL (75-99)
[2019-11-13] MEDS ORDERED: METOPROLOL SUCCINATE (ER) 25 MG TAB.ER.24H PO SCH (21:00)
[2019-11-13] MEDS ORDERED: NON FORMULARY DRUG (Dextroamphetamine/Amphetamine [Adderall] 20 MG) PO SCH (21:00)
[2019-11-13 23:20] LABS: Appearance,Urine Clear (Clear); Bilirubin,Urine Negative (Negative); Blood,Urine Small (Negative); Color,Urine Light Yellow; Glucose,Urine (UA) Negative (Negative); Hyaline Casts,Urine 4 /lpf (0-2); Ketones,Urine Negative (Negative); Leukocyte Esterase,Urine Negative (Negative); Nitrite,Urine Negative (Negative); PH, Urine 6.5 (5.0-8.0); Protein,Urine Negative (Negative); RBC,Urine 1 /hpf (0-5); Specific Gravity,Urine 1.006 (1.001-1.035); Urobilinogen,Urine <2.0 mg/dL (<2.0)
[2019-11-14] MEDS: oxyCODONE-APAP 10-325MG 1 EACH TAB PO PRN ×3 (02:42→20:17)
[2019-11-14 04:17] LABS: Calcium 9.1 mg/dL (8.4-10.2); Potassium 3.9 mmol/L (3.5-5.1)
[2019-11-14 06:56] LABS: Glucose,Whole Blood 106 mg/dL (75-99)
[2019-11-14] MEDS: SYMBICORT 80-4.5 MCG INHALER INHALATION SCH ×2 (08:21→19:24)
[2019-11-14] MEDS ORDERED: CAFFEINE CITRATE 60 MG/3 ML VIAL IV PRN (08:48)
[2019-11-14] MEDS ORDERED: DIPYRIDAMOLE 56.9 MG in SODIUM CHLORIDE 0.9% 38.62 ML IV ONE (08:48)
[2019-11-14] MEDS ORDERED: AMINOPHYLLINE 500 MG/20 ML VIAL IV PRN (08:48)
[2019-11-14] MEDS: NON FORMULARY DRUG (Simvastatin 40 MG) PO SCH (08:59)
[2019-11-14] MEDS: INSULIN ASPART (NovoLOG) 100 UNIT/ML VIAL SQ SCH ×3 (08:59→16:49)
[2019-11-14] MEDS ORDERED: MELOXICAM 7.5 MG TAB PO SCH (09:00)
[2019-11-14] MEDS ORDERED: predniSONE 10 MG TAB PO SCH (09:00)
[2019-11-14] MEDS ORDERED: ASPIRIN 325 MG TAB PO SCH (09:00)
[2019-11-14] MEDS: FOLIC ACID 1 MG TAB PO SCH (09:07)
[2019-11-14] MEDS: CITALOPRAM HYDROBROMIDE 20 MG TAB PO SCH (09:07)
[2019-11-14] MEDS: PANTOPRAZOLE 40 MG TABLET PO SCH ×2 (09:07→16:53)
[2019-11-14] MEDS: ASPIRIN 81 MG PO SCH (09:07)
--- NOTE | 2019-11-14 09:50 | P.CRDCN ---
History of Present Illness History of present illness: HISTORY OF PRESENTING ILLNESS This is a pleasant 74-year-old female past medical history significant for coronary artery disease status post stent placement to the LAD in the [facility] ng of an [place], hypertension, dyslipidemia and diabetes mellitus. She follows in the office with Dr. Arce. We have been asked to see in consultation for chest pain. She has been experiencing intermittent discomfort in the chest in the midsternal region. The symptoms are occurring at rest was she is sitting down and not related to activity or exertion. Discomfort does not radiate to the arm, back, neck or jaw. It is associated with some feelings of dizziness at times. She has been feeling intermittently lightheaded and has been following her. Pressure quite closely at home. Her blood pressures fluctuated greatly and at times as low as 70 systolic. Her primary care physician has advised her to hold her Lasix and the previous few weeks. Review of her medication list indicates she is on 2 beta blockers Coreg and Toprol. The patient states she has been taking these for the previous one year. Most recent cardiac catheterization performed in 2017 revealed left main free of stenosis, circumflex artery free of stenosis, LAD previously stented in the proximal portion with a 40% in-stent restenosis with no other significant lesions noted and RCA is free of significant disease. DIAGNOSTICS EKG reveals sinus mechanism with no acute ST or T wave abnormalities noted. Chest xray negative for an acute cardiopulmonary process. Laboratory reviewed, cardiac enzymes negative 3, LDL 71, creatinine 1.44, sodium 135, potassium 3.9, d-dimer 0.4, magnesium 1.9, NT proBNP 208 and CBC unremarkable. Current cardiac medications include aspirin 81 mg daily, Lasix 20 mg twice a day, Toprol 25 mg twice a day, amlodipine 5 mg twice a day, carvedilol 6.25 mg twice a day and simvastatin 40 mg twice a day. Most recent echocardiogram obtained in 2017 reveals preserved LV systolic function with ejection fraction 55-60%. REVIEW OF SYSTEMS At the time of my exam: CONSTITUTIONAL: Denies fever or chills. CARDIOVASCULAR: Denies chest pain, shortness of breath, orthopnea, PND or palpitations. RESPIRATORY: Denies cough. GASTROINTESTINAL: Denies abdominal pain, diarrhea, constipation, nausea or v omiting. MUSCULOSKELETAL: Denies myalgias. NEUROLOGIC: Denies numbness, tingling or weakness. ENDOCRINE: Denies fatigue, weight change, polydipsia or polyurina. GENITOURINARY: Denies burning, hematuria or urgency with micturation. HEMATOLOGIC: Denies history of anemia or bleeding. PHYSICAL EXAMINATION Blood pressure 106/66 heart rate 59 afebrile and maintaining oxygen saturation on room air. CONSTITUTIONAL: No apparent distress. Obese. HEENT: Head is normocephalic. Pupils are equal, round. Sclerae anicteric. Mucous membranes of the mouth are moist. No JVD. No carotid bruit. CHEST EXAMINATION: Lungs are clear to auscultation. No chest wall tenderness is noted on palpation or with deep breathing. HEART EXAMINATION: Regular rate and rhythm. S1, S2 heard. No murmurs, gallops or rub. ABDOMEN: Soft, nontender. Positive bowel sounds. EXTREMITIES: 2+ peripheral pulses, no lower extremity edema and no calf tenderness. NEUROLOGIC EXAMINATION: Patient is awake, alert and oriented x3. ASSESSMENT Chest pain, atypical for angina. An acute coronary event has been ruled out. Orthostatic hypotension secondary to polypharmacy. Acute kidney injury Coronary artery disease status post PCI to the proximal LAD 2013 in the setting of an acute [place] Hypertension Dyslipidemia Diabetes mellitus Obesity, BMI 36 PLAN Discontinue carvedilol and AMLODIPINE. Continue with Toprol 25 mg daily and simvastatin 40 mg daily. An acute coronary event has been ruled out. Obtain 2-D echocardiogram and Doppler study to assess cardiac structure and function. Perform Persantine stress test to assess for reversible cardiac ischemia. Hydrate with NS at 75 cc/hr. Repeat renal function in the morning. Continue to monitor for orthostatic changes. Further recommendations to follow based upon clinical course. Thank you kindly for this consultation. Nurse Practitioner note has been reviewed, I agree with a documented findings and plan of care. Patient was seen and examined. Past Medical History Past Medical History: Heart Failure, Diabetes Mellitus, Hypertension, Myocardial Infarction ([place]) Additional Past Medical History / Comment(s): Had mental breakdown several years ago and admitted for treatment. Pre-diabetic, patient has new-onset tremors with illness. ADHD and hyperlipidemia Last Myocardial Infarction Date:: 01/16/14 History of Any Multi-Drug Resistant Organisms: None Reported Past Surgical History: Section, Heart Catheterization With Stent, Orthopedic Surgery Additional Past Surgical History / Comment(s): Cervical fusion, shoulder repair on the right Past Anesthesia/Blood Transfusion Reactions: No Reported Reaction Date of Last Stent Placement:: 2013 Past Psychological History: ADD/ADHD, Anxiety, Bipolar, Depression Smoking Status: Never smoker Past Alcohol Use History: None Reported Past Drug Use History: None Reported - Past Family History Mother Family Medical History: Dementia Additional Family Medical History / Comment(s): mac degeneration of the eyes. states mother at the age of 94 Father Family Medical History: Cancer Additional Family Medical History / Comment(s): Stomach CA Sister(s) Additional Family Medical History / Comment(s): mental illness - suicide Medications and Allergies Home Medications Medication Instructions Recorded Confirmed Type Furosemide [Lasix] 20 mg PO BID 01/09/16 11/13/19 History Simvastatin [Zocor] 40 mg PO BID 07/03/16 11/13/19 History oxyCODONE-APAP 10-325MG [Percocet 1 tab PO QID PRN 07/03/16 11/13/19 History 10-325 mg] Aspirin EC [Ecotrin Low Dose] 81 mg PO DAILY 08/09/17 11/13/19 History Metoprolol Succinate [Toprol XL] 25 mg PO BID 08/09/17 11/13/19 History metFORMIN HCL [Glucophage] 500 mg PO AC-TID 08/09/17 11/13/19 History Pantoprazole [Protonix] 40 mg PO AC-BID #60 tablet. 09/13/17 11/13/19 Rx Celecoxib [CeleBREX] 200 mg PO DAILY 01/24/19 11/13/19 History Citalopram Hydrobromide [CeleXA] 40 mg PO DAILY 01/24/19 11/13/19 History Dextroamphetamine/Amphetamine 20 mg PO BID 01/24/19 11/13/19 History [Adderall] Folic Acid 1 mg PO DAILY 01/24/19 11/13/19 History Carvedilol [Coreg] 6.25 mg PO BID 03/24/19 11/13/19 History Albuterol Sulfate [Ventolin HFA] 2 puff INHALATION RT-Q4H PRN 11/13/19 11/13/19 History Budesonide/Formoterol Fumarate 2 puff INHALATION RT-BID 11/13/19 11/13/19 History [Symbicort 80-4.5 Mcg Inhaler] Nitroglycerin Sl Tabs [Nitrostat] 0.4 mg SUBLINGUAL Q5M PRN 11/13/19 11/13/19 History amLODIPine [Norvasc] 5 mg PO BID 11/13/19 11/13/19 History Allergies Allergy/AdvReac Type Severity Reaction Status Date / Time atorvastatin calcium AdvReac MUSCLE Verified 11/13/19 17:47 [From Lipitor] ACHES Physical Exam Vitals: Vital Signs Temp Pulse Pulse Resp BP BP BP 11/14/19 07:37 98.1 F 59 L 18 11/14/19 03:32 98.3 F 66 18 11/13/19 23:28 98.6 F 56 L 17 11/13/19 20:00 98.1 F 74 108/60 97/64 11/13/19 18:13 98.4 F 74 18 11/13/19 17:51 98.2 F 67 16 135/81 11/13/19 17:00 67 18 123/83 11/13/19 16:00 64 18 148/67 11/13/19 15:35 99.1 F 69 18 148/67 BP BP Pulse Ox 11/14/19 07:37 106/66 97 11/14/19 03:32 106/65 94 L 11/13/19 23:28 103/64 92 L 11/13/19 20:00 120/72 94 L 11/13/19 18:13 125/68 96 11/13/19 17:51 96 11/13/19 17:00 98 11/13/19 16:00 98 11/13/19 15:35 98 Intake and Output 11/13/19 11/14/19 11/14/19 22:59 06:59 14:59 Other: Voiding Method Toilet Toilet # Voids 1 Weight 99.79 kg Results 11/13/19 15:32 11/14/19 03:29 Cardiac Enzymes 11/13/19 11/13/19 11/13/19 Range/Units 15:32 15:32 21:04 AST 26 (14-36) U/L Troponin I <0.012 <0.012 (0.000-0.034) ng/mL 11/14/19 Range/Units 03:29 AST (14-36) U/L Troponin I <0.012 (0.000-0.034) ng/mL Coagulation 11/13/19 Range/Units 15:32 PT 9.9 (9.0-12.0) sec APTT 23.3 (22.0-30.0) sec Lipids 11/14/19 Range/Units 03:29 Triglycerides 129 (<150) mg/dL Cholesterol 163 (<200) mg/dL HDL Cholesterol 66 H (40-60) mg/dL CBC 11/13/19 Range/Units 15:32 WBC 10.0 (3.8-10.6) k/uL RBC 4.61 (3.80-5.40) m/uL Hgb 13.3 (11.4-16.0) gm/dL Hct 41.3 (34.0-46.0) % Plt Count 221 (150-450) k/uL Comprehensive Metabolic Panel 11/13/19 11/14/19 Range/Units 15:32 03:29 Sodium 136 L 135 L (137-145) mmol/L Potassium 4.0 3.9 (3.5-5.1) mmol/L Chloride 96 L 95 L (98-107) mmol/L Carbon Dioxide 30 36 H (22-30) mmol/L BUN 32 H 32 H (7-17) mg/dL Creatinine 1.31 H 1.44 H (0.52-1.04) mg/dL Glucose 110 H 87 (74-99) mg/dL Calcium 9.6 9.1 (8.4-10.2) mg/dL AST 26 (14-36) U/L ALT 14 (4-34) U/L Alkaline Phosphatase 93 (38-126) U/L Total Protein 7.6 (6.3-8.2) g/dL Albumin 4.6 (3.5-5.0) g/dL Current Medications Generic Name Dose Route Start Last Admin Trade Name Freq PRN Reason Stop Dose Admin Albuterol Sulfate 2.5 mg 11/13/19 18:11 Ventolin Nebulized INHALATION RT-Q4H PRN Shortness Of Breath Aspirin 81 mg 11/14/19 09:00 Aspirin PO DAILY JAYMIE Budesonide/Formoterol Fumarate 2 puff 11/13/19 20:00 11/13/19 20:25 Symbicort 80-4.5 Mcg Inhaler INHALATION 2 puff RT-BID JAYMIE Administration Citalopram Hydrobromide 40 mg 11/14/19 09:00 Celexa PO DAILY [facility] Folic Acid 1 mg 11/14/19 09:00 Folic Acid PO DAILY [facility] Insulin Aspart 0 unit 11/14/19 07:30 Novolog SQ AC-TID [facility] Protocol Metoprolol Succinate 25 mg 11/14/19 09:00 Toprol Xl PO DAILY [facility] Nitroglycerin 0.4 mg 11/13/19 17:15 Nitrostat SUBLINGUAL Q5M PRN Chest Pain Non-Formulary Medication 40 mg 11/14/19 09:00 Simvastatin PO DAILY [facility] Oxycodone/Acetaminophen 1 each 11/13/19 17:17 11/14/19 02:42 Percocet 10-325 PO 1 each QID PRN Administration Pain Pantoprazole Sodium 40 mg 11/13/19 17:30 11/13/19 18:55 Protonix PO 40 mg AC-BID JAYMIE Administration Intake and Output 11/13/19 11/14/19 11/14/19 22:59 06:59 14:59 Other: Voiding Method Toilet Toilet # Voids 1 Weight 99.79 kg 11/13/19 15:32 11/14/19 03:29
[2019-11-14] MEDS ORDERED: AMINOPHYLLINE 500 MG/20 ML VIAL IV ONE (11:07)
--- NOTE | 2019-11-14 11:54 | P.STRESS ---
- Stress Test Note Stress Test Results/Findings: Exam Performed: NM stress persantine cardiolite Exam Date: 11/14/19 Reason for Exam: CHEST PAIN Height: 5 ft 5 in Weight: 99.79 kg Protocol: PERSANTINE Stage: NA Duration of Exercise: NA Resting Heart Rate: 60 Resting Blood Pressure: 118/65 Maximum Achieved Heart Rate: 72 Maximum Achieved Blood Pressure: 131/64 85% PMHR: NA 100% PMHR: NA METS: NA Technologist Comment: Stress Test Results/Findings: This is a 74-year-old female with history of diabetes, hypertension, family history, being evaluated for symptoms of chest pain. Stress data: Baseline EKG showed sinus rhythm with normal CA interval and QRS duration. A standard dose of Persantine was infused EKGs taken during of infusion did not reveal any change of ischemia. Final impression: #1. Negative Persantine stress test #2. Report on the nuclear images to be given by the radiologist
[2019-11-14 12:04] LABS: Glucose,Whole Blood 142 mg/dL (75-99)
[2019-11-14] MEDS: METOPROLOL SUCCINATE (ER) 25 MG TAB.ER.24H PO SCH (12:04)
[2019-11-14] MEDS: SODIUM CHLORIDE 0.9% 1,000 ML IV SCH ×2 (12:07→23:21)
--- NOTE | 2019-11-14 12:28 | NM ---
EXAMINATION TYPE: NM stress persantine cardiolit DATE OF EXAM: 11/14/2019 COMPARISON: NONE HISTORY: Chest pain TECHNIQUE: After the intravenous administration of 9.56 mCi Tc 99m Sestamibi - Cardiolite resting SP ECT images acquired 45 minutes post injection. The patient received 56.9 mg Persantine, 26.8 mCi Tc 99m Sestamibi - Stress images obtained 30 minute s post injection FINDINGS: Review of stress and rest SPECT images demonstrates no distinct perfusion abnormality. Gated analysi s shows normal wall motion with an estimated left ventricular ejection fraction of 78 %. TID is withi n normal limits calculated at 1.05 IMPRESSION: No scintigraphic evidence for reversible ischemia.
--- NOTE | 2019-11-14 16:36 | P.PN ---
Subjective Progress Note Date: 11/14/19 Principal diagnosis: Weakness Patient was seen and examined. No acute events overnight. Patient continues to report profound weakness. States that this weakness has been ongoing for about 3 months. Patient also reports lightheadedness this morning when standing up. She denies any chest pain or palpitations. No nausea or vomiting. No fever or chills. Objective - Vital Signs Vital signs: Vital Signs Temp 97.5 F L 11/14/19 12:00 Pulse 59 L 11/14/19 12:00 Resp 18 11/14/19 12:00 BP 127/62 11/14/19 12:00 Pulse Ox 95 11/14/19 12:00 Intake & Output 11/13/19 11/14/19 11/14/19 18:59 06:59 18:59 Weight 99.79 kg 99.79 kg Other: Voiding Method Toilet Toilet # Voids 1 - Exam General: [non toxic], [no distress], [appears at stated age] Derm: [warm], [dry] Head: [atraumatic], [normocephalic], [symmetric] Eyes: [EOMI], [no lid lag], [anicteric sclera] Mouth: [no lip lesion], [mucus membranes moist] Cardiovascular: [S1S2 reg], [no murmur], [positive DP pulse bilateral], Lungs: [Decreased breath sounds bilateral], [no rhonchi, no rales] , [no accessory muscle use] Abdominal: [soft], [ nontender to palpation], [no guarding], [no appreciable organomegaly] Ext: [no gross muscle atrophy], [no edema], [no contractures] Neuro: [no focal neuro deficits] Psych: [Alert], [oriented], [appropriate affect] - Labs CBC & Chem 7: 11/13/19 15:32 11/14/19 03:29 Labs: Abnormal Lab Results - Last 24 Hours (Table) 11/13/19 11/13/19 11/13/19 Range/Units 15:32 20:40 22:51 Sodium 136 L (137-145) mmol/L Chloride 96 L (98-107) mmol/L Carbon Dioxide (22-30) mmol/L BUN 32 H (7-17) mg/dL Creatinine 1.31 H (0.52-1.04) mg/dL Glucose 110 H (74-99) mg/dL POC Glucose (mg/dL) 129 H (75-99) mg/dL HDL Cholesterol (40-60) mg/dL Urine Blood Small H (Negative) Hyaline Casts 4 H (0-2) /lpf 11/14/19 11/14/19 11/14/19 Range/Units 03:29 06:55 11:53 Sodium 135 L (137-145) mmol/L Chloride 95 L (98-107) mmol/L Carbon Dioxide 36 H (22-30) mmol/L BUN 32 H (7-17) mg/dL Creatinine 1.44 H (0.52-1.04) mg/dL Glucose (74-99) mg/dL POC Glucose (mg/dL) 106 H 142 H (75-99) mg/dL HDL Cholesterol 66 H (40-60) mg/dL Urine Blood (Negative) Hyaline Casts (0-2) /lpf Assessment and Plan Assessment: Generalized weakness Hypotension and bradycardia Acute kidney injury Interstitial lung disease Chest pain with history of CAD, ACS ruled out 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 Orthostats were negative. Patient has intermittent bradycardia on telemetry. Acute coronary syndrome has been ruled out. Stress test is negative. Hope to see improvement with discontinuation of antihypertensive medications. Follow PT consultation. BP 130/74. Plans: Management as above. Follow cardiology consultation. Creatinine 1.44. Likely related to dehydration. Plans: Continue normal saline at 75 mL per hour. Repeat BMP tomorrow morning. Avoid nephrotoxins. As seen on chest x-ray. Plans: Need CT chest outpatient. Will obtain a 6 minute walk test prior to discharge. Plans: Management as above. Plans: Resume home dose of Percocet. [Patient admitted for generalized weakness, slightly improved, PT on board. Blood pressure medications altered by cardiology. IVF for acute kidney injury. Pending clinical improvement. Likely DC in 1-2 days.]
[2019-11-14 16:49] LABS: Glucose,Whole Blood 114 mg/dL (75-99)
[2019-11-14 19:55] LABS: Glucose,Whole Blood 128 mg/dL (75-99)
[2019-11-15 06:51] LABS: Calcium 8.7 mg/dL (8.4-10.2); Potassium 4.1 mmol/L (3.5-5.1)
[2019-11-15 07:06] LABS: Glucose,Whole Blood 109 mg/dL (75-99)
[2019-11-15] MEDS: INSULIN ASPART (NovoLOG) 100 UNIT/ML VIAL SQ SCH ×3 (07:32→16:51)
[2019-11-15] MEDS: SYMBICORT 80-4.5 MCG INHALER INHALATION SCH ×2 (07:51→19:43)
[2019-11-15] MEDS: FOLIC ACID 1 MG TAB PO SCH (08:02)
[2019-11-15] MEDS: CITALOPRAM HYDROBROMIDE 20 MG TAB PO SCH (08:02)
[2019-11-15] MEDS: PANTOPRAZOLE 40 MG TABLET PO SCH ×2 (08:02→18:08)
[2019-11-15] MEDS: ASPIRIN 81 MG PO SCH (08:02)
[2019-11-15] MEDS: METOPROLOL SUCCINATE (ER) 25 MG TAB.ER.24H PO SCH (08:02)
[2019-11-15] MEDS: oxyCODONE-APAP 10-325MG 1 EACH TAB PO PRN ×2 (08:05→19:44)
--- NOTE | 2019-11-15 09:54 | P.PN ---
Subjective HISTORY OF PRESENTING ILLNESS This is a pleasant 74-year-old female past medical history significant for coronary artery disease status post stent placement to the LAD in the setting of an [place], hypertension, dyslipidemia and diabetes mellitus. She follows in the office with Dr. Arce. She is seen and examined laying flat in bed in no acute distress. She denies chest pain, shortness of breath, dizziness or palpitations. Blood pressures have been stable. Orthostatics obtained this morning reveal supine 103/63, sitting 131/61 and standing 110/68. Heart rates stable at 64. Laboratory data reviewed, sodium 139, potassium 4.1, creatinine 1.35. Persantine stress test negative for reversible cardiac ischemia. Echo revealed preserved LV systolic function with EF 55-60% and normal diastolic filling pattern. Currently maintained on lopressor 25 mg daily, aspirin 81 mg daily and simvastatin 40 mg daily. PHYSICAL EXAMINATION CONSTITUTIONAL: No apparent distress. Obese. HEENT: Head is normocephalic. Pupils are equal, round. Sclerae anicteric. Mucous membranes of the mouth are moist. No JVD. No carotid bruit. CHEST EXAMINATION: Lungs are clear to auscultation. No chest wall tenderness is noted on palpation or with deep breathing. HEART EXAMINATION: Regular rate and rhythm. S1, S2 heard. No murmurs, gallops or rub. EXTREMITIES: 2+ peripheral pulses, no lower extremity edema and no calf tenderness. ASSESSMENT Chest pain, atypical for angina. An acute coronary event has been ruled out. Orthostatic hypotension secondary to polypharmacy. Acute kidney injury Coronary artery disease status post PCI to the proximal LAD 2013 in the setting of an acute [place] Hypertension Dyslipidemia Diabetes mellitus Obesity, BMI 36 PLAN Stable from a cardiac perspective. Follow up with Dr. Arce in 2 weeks. Nurse Practitioner note has been reviewed, I agree with a documented findings and plan of care. Patient was seen and examined. Objective - Vital Signs Vital signs: Vital Signs Temp 98.4 F 11/15/19 08:05 Pulse 64 11/15/19 08:05 Resp 17 11/15/19 04:00 BP 103/63 11/15/19 08:05 Pulse Ox 97 11/15/19 08:05 Intake & Output 11/14/19 11/15/19 11/15/19 18:59 06:59 18:59 Intake Total 960 Balance 960 Weight 99.79 kg Intake: Oral 960 Other: Voiding Method Toilet Toilet # Voids 1 - Labs CBC & Chem 7: 11/13/19 15:32 11/15/19 05:24 Labs: Abnormal Lab Results - Last 24 Hours (Table) 11/14/19 11/14/19 11/14/19 Range/Units 11:53 16:47 19:54 Carbon Dioxide (22-30) mmol/L BUN (7-17) mg/dL Creatinine (0.52-1.04) mg/dL Glucose (74-99) mg/dL POC Glucose (mg/dL) 142 H 114 H 128 H (75-99) mg/dL 11/15/19 11/15/19 Range/Units 05:24 07:05 Carbon Dioxide 31 H (22-30) mmol/L BUN 33 H (7-17) mg/dL Creatinine 1.35 H (0.52-1.04) mg/dL Glucose 101 H (74-99) mg/dL POC Glucose (mg/dL) 109 H (75-99) mg/dL
[2019-11-15] MEDS: NON FORMULARY DRUG (Simvastatin 40 MG) PO SCH (10:04)
[2019-11-15] MEDS ORDERED: SODIUM CHLORIDE 0.9% 1,000 ML IV ONE (10:14)
--- NOTE | 2019-11-15 11:31 | P.DS ---
Providers Date of admission: 11/13/19 17:15 Expected date of discharge: 11/15/19 Attending physician: Quinn Reyes MD Consults: 11/13/19 17:15 Consult Physician Urgent Consulting Provider: Vu Morales Consult Reason/Comments: Chest pain, angina Do you want consulting provider notified?: Yes Primary care physician: Virgil Campuzano MD Hospital Course: This is a 74-year-old female with past medical history of coronary artery disease, chronic neck pain and asthma who comes to emergency department due to generalized weakness and chest discomfort. With regard to her chest pain, troponins were less than 0.0123 with EKG showing normal sinus rhythm. Cardiology was consulted and recommended stress test. Stress test was negative. Her generalized weakness and dizziness was thought to be related to her low blood pressure at home in the setting of multiple blood pressure medication and diuretics. Cardiology was consulted and adjusted her antihypertensive medications. Orthostats were initially negative but were positive on 11/15/2019. She was bolused 1 L normal saline and continued at 75 mL per hour. She had acute kidney injury from 1.31 creatinine on admission which worsened to 1.44 and 1.35. Patient did complain of thoracic back pain for which x-rays were ordered and were negative for fracture. Patient was seen and examined. No acute events overnight. Patient reports continued weakness there been ongoing for the past 3 weeks. She also reports dizziness described as lightheadedness when she stood up to do her orthostats this morning. He denies any chest pain, shortness of breath or palpitations. No nausea or vomiting. No fever or chills. General: [non toxic], [no distress], [appears at stated age] Derm: [warm], [dry] Head: [atraumatic], [normocephalic], [symmetric] Eyes: [EOMI], [no lid lag], [anicteric sclera] Mouth: [no lip lesion], [mucus membranes moist] Cardiovascular: [S1S2 reg], [no murmur], [positive DP pulse bilateral], Lungs: [Decreased breath sounds bilateral], [no rhonchi, no rales] , [no accessory muscle use] Abdominal: [soft], [ nontender to palpation], [no guarding], [no appreciable organomegaly] Ext: [no gross muscle atrophy], [no edema], [no contractures] Neuro: [no focal neuro deficits] Psych: [Alert], [oriented], [appropriate affect] Generalized weakness Hypotension and bradycardia Acute kidney injury Interstitial lung disease Chest pain with history of CAD, ACS ruled out 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 Orthostats were positive. Patient has intermittent bradycardia on telemetry. Acute coronary syndrome has been ruled out. Stress test is negative. Plans: Hope to see improvement with discontinuation of antihypertensive medications. Follow PT consultation. Bolused 1 L continue normal saline at 75 mL per hour. Encourage ambulation and recheck orthostats in the afternoon. BP 131/61 but orthostats positive. Plans: Management as above. Follow cardiology consultation. Creatinine 1.44-1.35. Likely related to dehydration. Plans: Continue normal saline at 75 mL per hour, bolus 1 L. Repeat BMP tomorrow morning. Avoid nephrotoxins. As seen on chest x-ray. Plans: Need CT chest outpatient. Will obtain a 6 minute walk test prior to discharge. Plans: Management as above. Plans: Resume home dose of Percocet. [Patient admitted for generalized weakness, slightly improved, PT on board. Blood pressure medications altered by cardiology. IVF for acute kidney injury. Orthostats positive, patient is pending clinical improvement. Likely DC today if improved this afternoon or tomorrow .] Pertinent Studies: Stress test, thoracic spine x-ray, chest x-ray Patient Condition at Discharge: Fair Plan - Discharge Summary Discharge Rx Participant: No New Discharge Prescriptions: New Metoprolol Succinate (ER) [Toprol XL] 25 mg PO DAILY #30 tab.er.24h Continue Furosemide [Lasix] 20 mg PO BID Simvastatin [Zocor] 40 mg PO BID oxyCODONE-APAP 10-325MG [Percocet 10-325 mg] 1 tab PO QID PRN PRN Reason: Pain metFORMIN HCL [Glucophage] 500 mg PO AC-TID Aspirin EC [Ecotrin Low Dose] 81 mg PO DAILY Pantoprazole [Protonix] 40 mg PO AC-BID #60 tablet. Folic Acid 1 mg PO DAILY Dextroamphetamine/Amphetamine [Adderall] 20 mg PO BID Citalopram Hydrobromide [CeleXA] 40 mg PO DAILY Celecoxib [CeleBREX] 200 mg PO DAILY Albuterol Sulfate [Ventolin HFA] 2 puff INHALATION RT-Q4H PRN PRN Reason: Shortness Of Breath Budesonide/Formoterol Fumarate [Symbicort 80-4.5 Mcg Inhaler] 2 puff INHALATION RT-BID Nitroglycerin Sl Tabs [Nitrostat] 0.4 mg SUBLINGUAL Q5M PRN PRN Reason: Chest Pain Discontinued Metoprolol Succinate [Toprol XL] 25 mg PO BID Carvedilol [Coreg] 6.25 mg PO BID amLODIPine [Norvasc] 5 mg PO BID Discharge Medication List Furosemide [Lasix] 20 mg PO BID 01/09/16 [History] Simvastatin [Zocor] 40 mg PO BID 07/03/16 [History] oxyCODONE-APAP 10-325MG [Percocet 10-325 mg] 1 tab PO QID PRN 07/03/16 [History] Aspirin EC [Ecotrin Low Dose] 81 mg PO DAILY 08/09/17 [History] metFORMIN HCL [Glucophage] 500 mg PO AC-TID 08/09/17 [History] Pantoprazole [Protonix] 40 mg PO AC-BID #60 tablet. 09/13/17 [Rx] Celecoxib [CeleBREX] 200 mg PO DAILY 01/24/19 [History] Citalopram Hydrobromide [CeleXA] 40 mg PO DAILY 01/24/19 [History] Dextroamphetamine/Amphetamine [Adderall] 20 mg PO BID 01/24/19 [History] Folic Acid 1 mg PO DAILY 01/24/19 [History] Albuterol Sulfate [Ventolin HFA] 2 puff INHALATION RT-Q4H PRN 11/13/19 [History] Budesonide/Formoterol Fumarate [Symbicort 80-4.5 Mcg Inhaler] 2 puff INHALATION RT-BID 11/13/19 [History] Nitroglycerin Sl Tabs [Nitrostat] 0.4 mg SUBLINGUAL Q5M PRN 11/13/19 [History] Metoprolol Succinate (ER) [Toprol XL] 25 mg PO DAILY #30 tab.er.24h 11/15/19 [Rx] Follow up Appointment(s)/Referral(s): Virgil Campuzano MD [Primary Care Provider] - 1-2 days Ze Arce MD [STAFF PHYSICIAN] - 2 Weeks Activity/Diet/Wound Care/Special Instructions: Diet: Cardiac Follow-up PCP within 3 days of discharge. Follow-up cardiology within 1 week of discharge. Compared to the ED or call 911 for worsening chest pain, shortness of breath, palpitations or dizziness. Discharge Disposition: HOME SELF-CARE
[2019-11-15 11:36] VITALS: RESP 18
[2019-11-15 11:47] LABS: Glucose,Whole Blood 82 mg/dL (75-99)
--- NOTE | 2019-11-15 12:24 | ECHOF ---
Referral Reason:cp MEASUREMENTS -------- HEIGHT: 162.6 cm WEIGHT: 99.8 kg BP: RVIDd: 3.1 cm (< 3.3) IVSd: 1.2 cm (0.6 - 1.1) LVIDd: 4.1 cm (3.9 - 5.3) LVPWd: 1.5 cm (0.6 - 1.1) IVSs: 1.6 cm LVIDs: 3.2 cm LVPWs: 1.6 cm LA Diam: 2.9 cm (2.7 - 3.8) LAESV Index (A-L): 21.67 ml/m Ao Diam: 3.5 cm (2.0 - 3.7) AV Cusp: 1.5 cm (1.5 - 2.6) MV EXCURSION: 21.518 mm (> 18.000) MV EF SLOPE: 142 mm/s (70 - 150) EPSS: 0.2 cm MV E Alcon: 1.04 m/s MV DecT: 162 ms MV A Alcon: 1.04 m/s MV E/A Ratio: 1.00 RAP: 5.00 mmHg RVSP: 40.07 mmHg FINDINGS -------- Sinus rhythm. This was a technically good study. The left ventricular size is normal. There is mild concentric left ventricular hypertrophy. Overa ll left ventricular systolic function is normal with, an EF between 55 - 60 %. The diastolic fillin g pattern is normal for the age of the patient 14.41. The right ventricle is normal in size. The left atrial size is normal. Normal LA size by volume 22+/-6 ml/m2. The right atrial size is normal. The aortic valve is trileaflet, and appears structurally normal. No aortic stenosis or regurgitation. Mild mitral annular calcification present. Mild mitral regurgitation is present. Mild tricuspid regurgitation present. Right ventricular systolic pressure is normal at < 35 mmHg. There is no evidence of pulmonary hypertension. There is no pulmonic regurgitation present. The aortic root size is normal. Echo free space represents a pericardial fat pad. CONCLUSIONS -------- 1. Sinus rhythm. 2. This was a technically good study. 3. The left ventricular size is normal. 4. There is mild concentric left ventricular hypertrophy. 5. Overall left ventricular systolic function is normal with, an EF between 55 - 60 %. 6. The diastolic filling pattern is normal for the age of the patient 14.41 7. The right ventricle is normal in size. 8. The left atrial size is normal. 9. Normal LA size by volume 22+/-6 ml/m2. 10. The right atrial size is normal. 11. The aortic valve is trileaflet, and appears structurally normal. No aortic stenosis or regurgitat ion. 12. Mild mitral annular calcification present. 13. Mild mitral regurgitation is present. 14. Mild tricuspid regurgitation present. 15. Right ventricular systolic pressure is normal at < 35 mmHg. 16. There is no evidence of pulmonary hypertension. 17. There is no pulmonic regurgitation present. 18. The aortic root size is normal. 19. Echo free space represents a pericardial fat pad. STAVE CUTTER: Rosy Estrella RDCS
--- NOTE | 2019-11-15 13:00 | EST ---
Stress Test Results/Findings: Exam Performed: NM stress persantine cardiolite Exam Date: 11/14/19 Reason for Exam: CHEST PAIN Height: 5 ft 5 in Weight: 99.79 kg Protocol: PERSANTINE Stage: NA Duration of Exercise: NA Resting Heart Rate: 60 Resting Blood Pressure: 118/65 Maximum Achieved Heart Rate: 72 Maximum Achieved Blood Pressure: 131/64 85% PMHR: NA 100% PMHR: NA METS: NA Technologist Comment: Stress Test Results/Findings: This is a 74-year-old female with history of diabetes, hypertension, family history, being evaluated for symptoms of chest pain. Stress data: Baseline EKG showed sinus rhythm with normal IL interval and QRS duration. A standard dose of Persantine was infused EKGs taken during of infusion did not reveal any change of ischemia. Final impression: #1. Negative Persantine stress test #2. Report on the nuclear images to be given by the radiologist IRAM
[2019-11-15] MEDS: SODIUM CHLORIDE 0.9% 1,000 ML IV SCH (13:09)
[2019-11-15 16:28] LABS: Glucose,Whole Blood 116 mg/dL (75-99)
[2019-11-15 20:26] LABS: Glucose,Whole Blood 110 mg/dL (75-99)
[2019-11-15 23:23] VITALS: TEMP 98.3
[2019-11-16] MEDS: SODIUM CHLORIDE 0.9% 1,000 ML IV SCH (02:16)
[2019-11-16 04:29] VITALS: PULSE 61
[2019-11-16 07:06] LABS: Glucose,Whole Blood 99 mg/dL (75-99)
[2019-11-16] MEDS: SYMBICORT 80-4.5 MCG INHALER INHALATION SCH (07:28)
[2019-11-16 07:55] VITALS: BP 109/67
[2019-11-16] MEDS: INSULIN ASPART (NovoLOG) 100 UNIT/ML VIAL SQ SCH (08:12)
[2019-11-16] MEDS: NON FORMULARY DRUG (Simvastatin 40 MG) PO SCH (08:13)
[2019-11-16] MEDS: ASPIRIN 81 MG PO SCH (08:14)
[2019-11-16] MEDS: CITALOPRAM HYDROBROMIDE 20 MG TAB PO SCH (08:14)
[2019-11-16] MEDS: PANTOPRAZOLE 40 MG TABLET PO SCH (08:14)
[2019-11-16] MEDS: FOLIC ACID 1 MG TAB PO SCH (08:14)
[2019-11-16] MEDS: oxyCODONE-APAP 10-325MG 1 EACH TAB PO PRN (08:14)
[2019-11-16] MEDS: METOPROLOL SUCCINATE (ER) 25 MG TAB.ER.24H PO SCH (08:14)
--- NOTE | 2019-11-16 08:20 | P.PN ---
Subjective Progress Note Date: 11/16/19 Principal diagnosis: Weakness Patient was seen and examined. No acute events overnight. Patient reports slight improvement in her weakness. Patient reports her dizziness has improved this morning. Her orthostats were negative this morning. She has been able to ambulate the hallways without any difficulty. She lives with her and has assisted devices including cane and rolling walker. She denies any chest pain or palpitations. No nausea or vomiting. No fever or chills. Objective - Vital Signs Vital signs: Vital Signs Temp 98.3 F 11/16/19 04:00 Pulse 61 11/16/19 04:00 Resp 18 11/16/19 04:00 BP 109/67 11/16/19 07:54 Pulse Ox 93 L 11/16/19 07:28 Intake & Output 11/15/19 11/16/19 11/16/19 18:59 06:59 18:59 Other: Voiding Method Toilet Toilet # Voids 1 2 - Exam General: [non toxic], [no distress], [appears at stated age] Derm: [warm], [dry] Head: [atraumatic], [normocephalic], [symmetric] Eyes: [EOMI], [no lid lag], [anicteric sclera] Mouth: [no lip lesion], [mucus membranes moist] Cardiovascular: [S1S2 reg], [no murmur], [positive DP pulse bilateral], Lungs: [Decreased breath sounds bilateral], [no rhonchi, no rales] , [no accessory muscle use] Abdominal: [soft], [ nontender to palpation], [no guarding], [no appreciable organomegaly] Ext: [no gross muscle atrophy], [no edema], [no contractures] Neuro: [no focal neuro deficits] Psych: [Alert], [oriented], [appropriate affect] - Labs CBC & Chem 7: 11/13/19 15:32 11/15/19 05:24 Labs: Abnormal Lab Results - Last 24 Hours (Table) 11/15/19 11/15/19 Range/Units 16:26 20:18 POC Glucose (mg/dL) 116 H 110 H (75-99) mg/dL Assessment and Plan Assessment: Generalized weakness from Orthostatic hypotension from polypharmacy Acute kidney injury Interstitial lung disease Chest pain with history of CAD, ACS ruled out 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 Profound weakness without focal neurologic deficit seems to be related to her low blood pressure at home in the setting of multiple blood pressure medication and diuretics. Orthostats were negative this morning. Patient has intermittent bradycardia on telemetry which has resolved. Acute coronary syndrome has been ruled out. Stress test is negative. Plans: Improvement with discontinuation of antihypertensive medications. Continue Metoprolol as per Cardiology. Follow PT consultation. Encourage ambulation and hydration by mouth. Creatinine 1.44-1.35. Likely related to dehydration. Plans: Repeat BMP this morning pending. DC IVF and encourage hydration by mouth. Avoid nephrotoxins. As seen on chest x-ray. Plans: Need CT chest outpatient. Will obtain a 6 minute walk test prior to discharge. Plans: Management as above. Plans: Resume home dose of Percocet. Plans: Structured weight loss program. [Patient admitted for generalized weakness, slightly improved, PT on board. Blood pressure medications altered by cardiology. IVF for acute kidney injury, BMP pending. Orthostats negative, dizziness has improved. Plan for DC today with follow up with PCP and Cardiology.]
[2019-11-16 09:02] LABS: Calcium 8.9 mg/dL (8.4-10.2); Potassium 4.2 mmol/L (3.5-5.1)
== END 2019-11-16 11:35 | disposition home or self-care (01) | DRG 312 ==
LOC: EC 15:28 → 1SOBS 17:15 → OBSVTOIN 11-16 08:19
PROVIDERS: ADMIT Hospitalist; ATTEND Hospitalist
DX: I95.2 Hypotension due to drugs (principal); I25.110 Atherosclerotic heart disease of native coronary artery with unstable angina pectoris; N17.9 Acute kidney failure, unspecified; T44.7X5A Adverse effect of beta-adrenoreceptor antagonists, initial encounter; T50.2X5A Adverse effect of carbonic-anhydrase inhibitors, benzothiadiazides and other diuretics, initial encounter; R00.1 Bradycardia, unspecified; E11.9 Type 2 diabetes mellitus without complications; E66.9 Obesity, unspecified; E78.5 Hyperlipidemia, unspecified; E86.0 Dehydration; F31.9 Bipolar disorder, unspecified; F41.9 Anxiety disorder, unspecified; F90.9 Attention-deficit hyperactivity disorder, unspecified type; I11.0 Hypertensive heart disease with heart failure; I25.2 Old myocardial infarction; I50.9 Heart failure, unspecified; J45.909 Unspecified asthma, uncomplicated; J84.10 Pulmonary fibrosis, unspecified; M54.2 Cervicalgia; G89.29 Other chronic pain; V89.2XXS Person injured in unspecified motor-vehicle accident, traffic, sequela; Z68.36 Body mass index [BMI] 36.0-36.9, adult; Z79.1 Long term (current) use of non-steroidal anti-inflammatories (NSAID); Z79.51 Long term (current) use of inhaled steroids; Z79.82 Long term (current) use of aspirin; Z79.84 Long term (current) use of oral hypoglycemic drugs; Z79.899 Other long term (current) drug therapy; Z80.0 Family history of malignant neoplasm of digestive organs; Z95.5 Presence of coronary angioplasty implant and graft; Z81.8 Family history of other mental and behavioral disorders; Z79.891 Long term (current) use of opiate analgesic; M54.6 Pain in thoracic spine
CPT/HCPCS: 36415; 71046; 72070; 78452; 80048; 80053; 80061; 81001; 82550; 83690; 83735; 83880; 84484; 85025; 85379; 85610; 85652; 85730; 93005; 93017; 93306; 94640; 94760; 99285

== ENCOUNTER 2020-03-06 15:16 | Inpatient (IN) | payer MEDICARE, OTHER ==
[2020-03-06 15:55] LABS: Basophils # (A) 0.1 k/uL (0-0.2); Basophils % (A) 1 %; Eosinophils # (A) 0.4 k/uL (0-0.7); Eosinophils % (A) 4 %; HCT 36.3 % (34.0-46.0); HGB 11.5 gm/dL (11.4-16.0); Lymphocytes # (A) 2.3 k/uL (1.0-4.8); Lymphocytes % (A) 27 %; MCH 29.2 pg (25.0-35.0); MCHC 31.6 g/dL (31.0-37.0); MCV 92.4 fL (80.0-100.0); Mean Platelet Volume 10.6; Monocytes # (A) 0.5 k/uL (0-1.0); Monocytes % (A) 6 %; Neutrophils # (A) 5.1 k/uL (1.3-7.7); Neutrophils % (A) 60 %; Platelet Count 175 k/uL (150-450); RBC 3.93 m/uL (3.80-5.40); RDW 13.5 % (11.5-15.5); WBC 8.5 k/uL (3.8-10.6)
--- NOTE | 2020-03-06 15:58 | XR ---
EXAMINATION TYPE: XR chest 2V DATE OF EXAM: 03/06/2020 COMPARISON: 11/13/2019 INDICATION: Chest pain TECHNIQUE: Frontal and lateral views of the chest are obtained. FINDINGS: The heart size is normal. The pulmonary vasculature is normal. The lungs are clear. IMPRESSION: 1. No acute pulmonary process.
[2020-03-06 16:14] LABS: D-Dimer 0.57 mg/L FEU (<0.60); INR 0.9 (<1.2); Partial Thromboplastin Time 22.4 sec (22.0-30.0); Prothrombin Time 9.6 sec (9.0-12.0)
[2020-03-06 16:22] LABS: Albumin 4.2 g/dL (3.5-5.0); Calcium 9.6 mg/dL (8.4-10.2); Magnesium 2.2 mg/dL (1.6-2.3); Potassium 4.4 mmol/L (3.5-5.1); Total Bilirubin 0.6 mg/dL (0.2-1.3); Total Protein 7.1 g/dL (6.3-8.2)
--- NOTE | 2020-03-06 16:43 | US ---
EXAMINATION TYPE: US venous doppler duplex LE LT DATE OF EXAM: 03/06/2020 4:38 PM COMPARISON: NONE CLINICAL HISTORY: posterior knee leg pain, now chest pain. SIDE PERFORMED: Left TECHNIQUE: The lower extremity deep venous system is examined utilizing real time linear array sonog adwoa with graded compression, doppler sonography and color-flow sonography. VESSELS IMAGED: External Iliac Vein (EIV) Common Femoral Vein Deep Femoral Vein Greater Saphenous Vein * Femoral Vein Popliteal Vein Small Saphenous Vein * Proximal Calf Veins (* superficial vessels) Left Leg: Negative for DVT IMPRESSION: 1. Left lower extremity ultrasound negative for deep venous thrombosis.
[2020-03-06] MEDS ORDERED: oxyCODONE-APAP 10-325MG 1 EACH TAB PO STA (17:25)
--- NOTE | 2020-03-06 17:28 | CT ---
EXAMINATION TYPE: CT chest angio for PE DATE OF EXAM: 03/06/2020 COMPARISON: CT dated 09/16/2017 HISTORY: Chest and knee pain without injury. CT DLP: 500.5 mGycm. Automated Exposure Control for Dose Reduction was Utilized. CONTRAST: CTA scan of the thorax is performed with IV Contrast, patient injected with 70 mL of Isovue 370, pulm onary embolism protocol. MIP Images are created on CT scanner and reviewed. FINDINGS: LUNGS: Minimal dependent subsegmental atelectasis. The lungs are grossly clear, there is no concernin g parenchymal mass or nodule identified. There is no pleural effusion or pneumothorax seen. The tr acheobronchial tree is patent. MEDIASTINUM: Phase of enhancement limits evaluation for coronary artery calcifications however suspec elyse moderate coronary calcifications of the left anterior descending coronary artery. There is satisf actory enhancement of the pulmonary artery and its branches, there is no CT evidence for pulmonary em bolism. There are no greater than 1 cm hilar or mediastinal lymph nodes. No cardiomegaly or perica rdial effusion is seen. OTHER: Small hiatal hernia. Gallbladder is contracted. Questionable gallbladder wall thickening. Veronique elate with serum laboratory values and Sam sign. Cervical fusion device is seen. There are scatter ed punctate sclerotic foci of the thoracic spine. These appear similar to the exam of 2017. IMPRESSION: 1. No CT evidence of pulmonary embolism. 2. Limited evaluation for coronary artery calcifications however suspected moderate coronary artery a therosclerosis of the left anterior descending coronary artery, a marker for coronary artery disease. 3. Contracted state of the gallbladder however there is questionable gallbladder wall thickening. Cor relate with serum laboratory values and Sam sign. 4. Small hiatal hernia.
[2020-03-06] MEDS ORDERED: NITROGLYCERIN SL TABS 0.4 MG TAB SUBLINGUAL PRN (17:32)
--- NOTE | 2020-03-06 17:47 | ED ---
Chest Pain HPI - General Chief Complaint: Chest Pain Stated Complaint: Knee and chest pain Time Seen by Provider: 03/06/20 15:24 Source: patient Mode of arrival: wheelchair Limitations: no limitations - History of Present Illness Initial Comments: 71-year-old female presenting today for chief complaint of left leg pain, chest pain shortness of breath. Patient states for 2 weeks she has had left leg pain to the medial posterior aspect of the left knee up or toward the posterior left thigh. Patient denies any redness denies any noted swelling of the calf or lower leg. Patient denies any lower extremity edema. She denies a direct injury or falls or trauma to the leg. Patient denies any fevers chills or general malaise. Patient states that today she developed chest pain and comes and goes is sharp in nature without radiation denies any jaw or arm pain. She denies it being pleuritic denies hemoptysis or history of cancer. Patient denies headache, vomiting abdominal pain, syncope. Patient has no additional complaints. Upon arrival she appears well in no acute distress. - Related Data Home Medications Medication Instructions Recorded Confirmed Furosemide [Lasix] 20 mg PO BID 01/09/16 11/13/19 Simvastatin [Zocor] 40 mg PO BID 07/03/16 11/13/19 oxyCODONE-APAP 10-325MG [Percocet 1 tab PO QID PRN 07/03/16 11/13/19 10-325 mg] Aspirin EC [Ecotrin Low Dose] 81 mg PO DAILY 08/09/17 11/13/19 metFORMIN HCL [Glucophage] 500 mg PO AC-TID 08/09/17 11/13/19 Celecoxib [CeleBREX] 200 mg PO DAILY 01/24/19 11/13/19 Citalopram Hydrobromide [CeleXA] 40 mg PO DAILY 01/24/19 11/13/19 Dextroamphetamine/Amphetamine 20 mg PO BID 01/24/19 11/13/19 [Adderall] Folic Acid 1 mg PO DAILY 01/24/19 11/13/19 Albuterol Sulfate [Ventolin HFA] 2 puff INHALATION RT-Q4H PRN 11/13/19 11/13/19 Budesonide/Formoterol Fumarate 2 puff INHALATION RT-BID 11/13/19 11/13/19 [Symbicort 80-4.5 Mcg Inhaler] Nitroglycerin Sl Tabs [Nitrostat] 0.4 mg SUBLINGUAL Q5M PRN 11/13/19 11/13/19 Previous Rx's Medication Instructions Recorded Pantoprazole [Protonix] 40 mg PO AC-BID #60 tablet.dr 09/13/17 Metoprolol Succinate (ER) [Toprol 25 mg PO DAILY #30 tab.er.24h 11/15/19 XL] Allergies Allergy/AdvReac Type Severity Reaction Status Date / Time atorvastatin calcium AdvReac MUSCLE Verified 03/06/20 15:22 [From Lipitor] ACHES Review of Systems ROS Statement: Those systems with pertinent positive or pertinent negative responses have been documented in the HPI. ROS Other: All systems not noted in ROS Statement are negative. Past Medical History Past Medical History: Heart Failure, Diabetes Mellitus, Hypertension, Myocardial Infarction (PR) Additional Past Medical History / Comment(s): Had mental breakdown several years ago and admitted for treatment. Pre-diabetic, patient has new-onset tremors with illness. ADHD and hyperlipidemia Last Myocardial Infarction Date:: 01/16/14 History of Any Multi-Drug Resistant Organisms: None Reported Past Surgical History: Section, Heart Catheterization With Stent, Orthopedic Surgery Additional Past Surgical History / Comment(s): Cervical fusion, shoulder repair on the right Past Anesthesia/Blood Transfusion Reactions: No Reported Reaction Date of Last Stent Placement:: 2013 Past Psychological History: ADD/ADHD, Anxiety, Bipolar, Depression Smoking Status: Never smoker Past Alcohol Use History: None Reported Past Drug Use History: None Reported - Past Family History Mother Family Medical History: Dementia Additional Family Medical History / Comment(s): mac degeneration of the eyes. states mother at the age of 94 Father Family Medical History: Cancer Additional Family Medical History / Comment(s): Stomach CA Sister(s) Additional Family Medical History / Comment(s): mental illness - suicide General Exam - General Exam Comments Initial Comments: General: The patient is awake and alert, in no distress Eye: Pupils are equal, round and reactive to light, extra-ocular movements are intact. No nystagmus. There is normal conjunctiva bilaterally. No signs of icterus. Ears, nose, mouth and throat: There are moist mucous membranes and no oral lesions. Neck: The neck is supple, there is no tenderness or JVD. Cardiovascular: There is a regular rate and rhythm. No murmur, rub or gallop is appreciated. Respiratory: Lungs are clear to auscultation, respirations are non-labored, breath sounds are equal. No wheezes, stridor, rales, or rhonchi. Gastrointestinal: Soft, non-distended, non-tender abdomen without masses or organomegaly noted. There is no rebound or guarding present. Musculoskeletal: Normal ROM, some pain with ROM of the left knee. Strength 5/5. Sensation intact. Radial and DP pulses equal bilaterally 2+. Neurological: A&O x 3. CN II-XII intact grossly, There are no obvious motor or sensory deficits. Coordination appears grossly intact. Speech is normal. Skin: Skin is warm and dry and no rashes or lesions are noted. No calf swelling or LE edema. No knee redness or swelling noted. Psychiatric: Cooperative, appropriate mood & affect, normal judgment. Limitations: no limitations Course Vital Signs 03/06/20 03/06/20 15:20 17:33 Temperature 99.1 F Pulse Rate 94 89 Respiratory 20 18 Rate Blood Pressure 133/52 108/66 O2 Sat by Pulse 98 97 Oximetry Chest Pain MDM - MDM 74-year-old feel present today for chest pain. Patient is history of coronary artery disease she is morbidly obese she has history of DM/HTN. Patient has no additional complaints. Initial troponin (-). Given the left posterior leg pain, dimer + 0.57 CTA obtained. No PE however noted LAD changes. Will be admitted for serial troponins and cardiology evaluation. patient is agreeable to care plan and admission. Disposition Clinical Impression: Chest pain, CAD (coronary artery disease), Left knee pain Disposition: ADMITTED IP TO THIS HOSP Condition: Stable Is patient prescribed a controlled substance at d/c from ED?: No Referrals: None,Stated [Primary Care Provider] - 1-2 days Time of Disposition: 17:46 Decision to Admit Reason: Admit from EC Decision Date: 03/06/20 Decision Time: 17:47
[2020-03-06] MEDS ORDERED: ASPIRIN 81 MG PO STA (18:29)
--- NOTE | 2020-03-06 19:32 | HP ---
HISTORY AND PHYSICAL CHIEF COMPLAINT: Chest pain. HISTORY OF PRESENT ILLNESS: This is another admission for this 74-year-old obese white female. She has come to the hospital to have her leg checked. She has been having a lot of discomfort in the left knee for 2 weeks with some generalized pain, and it is likely due to osteoarthritis. On her way to the hospital she started to develop chest pain. It was in the lower anterior chest and she describes it as being sharp. She had a little bit of diaphoresis but no shortness of breath. There was no radiation of the pain and she had no palpitations, syncope, nausea, etc. In 2013 she had 2 stents placed in her coronary arteries. She has hypertension and diabetes. REVIEW OF SYSTEMS: She has had no syncope, dizziness, CVAs, TIAs, problems with vision or hearing, pleurisy, hemoptysis, sputum production, murmurs, rheumatic fever, abdominal pain, nausea, vomiting, hematemesis, melena, hematochezia, jaundice, hepatitis, cirrhosis, renal failure, hematuria, dysuria, frequency, incontinence, etc. Past medical history, family history, and personal and social histories reveal that she is ALLERGIC TO LIPITOR, but she takes Zocor. Lipitor gave her muscle pain. MEDICATIONS: Medications that she is on include Lasix 20 mg b.i.d., simvastatin 40 mg b.i.d., for some reason, OxyContin 10 mg q.i.d. for neck pain, aspirin 81 mg a day, metformin 500 mg t.i.d., Celebrex 200 mg once a day, Celexa 40 mg once a day, Adderall 20 mg b.i.d., folic acid, Ventolin inhaler, Symbicort 80-4.5, and Nitrostat. PHYSICAL EXAMINATION: Blood pressure 133/52, pulse of 94, respirations 20, temperature 99.1, and pulse ox is 98. In general she appeared to be well developed, well nourished, and in no acute distress. She was overweight. Skin color was normal. Skin was warm and dry. Lymph nodes were not enlarged. Head, ears, eyes, nose, mouth and throat were normal. Carotids were normal. Chest was clear to auscultation and percussion. Cardiac exam demonstrated normal sinus rhythm. No murmurs or extra sounds. Abdomen was soft and nontender without any visceromegaly or masses. Bowel sounds were present. Flanks were nontender. Extremities were normal except for the left knee, which was warm and hypertrophic, tender, and she had pain on full extension. She could only flex to about 90 degrees. She is admitted to the hospital with the diagnoses: 1. Atypical chest pain. 2. Osteoarthritis of the left knee. 3. History of coronary artery disease, status post placement of 2 stents. 4. Type 2 [id number] diabetes mellitus. PLAN: 1. Bed rest. 2. IV fluids. 3. Serial EKGs and enzymes. 4. Consult with Cardiology. MMODL / IJN: [id number] /
[2020-03-06 20:28] LABS: Glucose,Whole Blood 95 mg/dL (75-99)
[2020-03-06] MEDS ORDERED: ALBUTEROL NEBULIZED 2.5 MG/3 ML INHALATION PRN (22:17)
--- NOTE | 2020-03-06 23:26 | XR ---
EXAMINATION TYPE: XR knee complete LT DATE OF EXAM: 03/06/2020 COMPARISON: NONE HISTORY: Knee pain TECHNIQUE: 3 views FINDINGS: There is some spurring in the patella. There is no evidence of joint effusion. Joint spaces are fairly normal. I see no fracture nor dislocation. IMPRESSION: Mild patellar spurring. No fracture seen.
[2020-03-06] MEDS: PANTOPRAZOLE 40 MG TABLET PO SCH (23:29)
[2020-03-06] MEDS: oxyCODONE-APAP 10-325MG 1 EACH TAB PO PRN (23:30)
[2020-03-07 04:08] LABS: Cholesterol 149 mg/dL (<200); HDL Cholesterol 70 mg/dL (40-60); LDL Cholesterol,Calculated 65 mg/dL (0-99); Triglycerides 69 mg/dL (<150)
[2020-03-07 06:05] LABS: Glucose,Whole Blood 94 mg/dL (75-99)
[2020-03-07] MEDS: oxyCODONE-APAP 10-325MG 1 EACH TAB PO PRN ×4 (06:57→21:18)
[2020-03-07] MEDS: PANTOPRAZOLE 40 MG TABLET PO SCH ×2 (06:57→16:20)
[2020-03-07] MEDS: SYMBICORT 80-4.5 MCG INHALER INHALATION SCH ×2 (07:42→20:45)
[2020-03-07] MEDS ORDERED: NON FORMULARY DRUG (Aspirin Ec 81 MG) PO SCH (09:00)
[2020-03-07] MEDS: ASPIRIN 325 MG TAB PO SCH (09:07)
[2020-03-07] MEDS: MELOXICAM 7.5 MG TAB PO SCH (09:07)
[2020-03-07] MEDS: METOPROLOL SUCCINATE (ER) 25 MG TAB.ER.24H PO SCH (09:07)
[2020-03-07] MEDS: FUROSEMIDE 20 MG TAB PO SCH ×2 (09:08→20:31)
[2020-03-07] MEDS: FLUTICASONE 50MCG/SPRAY NASAL 16GM EA NOSTRIL SCH (09:08)
[2020-03-07] MEDS: amLODIPine 5 MG TAB PO SCH (09:08)
[2020-03-07] MEDS: CITALOPRAM HYDROBROMIDE 20 MG TAB PO SCH (09:08)
[2020-03-07 11:47] LABS: Glucose,Whole Blood 106 mg/dL (75-99)
--- NOTE | 2020-03-07 11:47 | P.CRDCN ---
History of Present Illness History of present illness: Patient Keke Petersen 74-year-old female This is Dr. Morales dictating a consult on this patient The patient was interviewed and examined by me IMPRESSION / ASSESSMENT: Atypical chest discomfort epigastric discomfort with 3 normal cardiac enzymes and a normal ECG Known coronary artery disease status post stenting in the past No evidence for pulmonary embolism History of diabetes and hypertension PLAN: Work of epigastric discomfort Twelve-lead EKG tomorrow 2-D echo and Doppler study Reevaluate thereafter HPI 71-year-old female presenting with left leg pain, chest pain shortness of breath For the last 2 weeks she's had left leg pain of the back of the knee and up first posteriorly in the left thigh. No fever chills She came to the ER complaining of chest pain Past history of diabetes hypertension heart failure and ID and dyslipidemia She's had coronary stenting in the past Epigastric discomfort going up into the chest that reminded her of her previous event prior to the heart attack but she describes it as sharp She also complains of knee and leg pain ROS: No fever chills or rigors, no cough, phlegm or expectoration, no nausea, vomiting or diarrhea, no hematuria, dysuria, no musculoskeletal complaints, no strokes or seizures, no skin lesions. EXAMINATION: 1 temperature of 99.1 but otherwise the rest were normal Pulse rate in the 80s Blood pressure 137/64, 132/63 BMI 38, Tenderness around the knee and thigh on the left side Epigastric tenderness Normal heart sounds no murmurs Lungs are clear no rhonchi no crackles REVIEW OF LABS, ECG & MEDICAL DATA lower extremity ultrasound negative for DVT No evidence for pulmonary and resume on computed tomography scan Coronary calcification noted Twelve-lead ECG shows sinus rhythm 87 beats a minute normal ST segments White count 8.5, hemoglobin 11.5 no leftward shift Normal d-dimer Sodium 137, potassium 4.4 BUN 17 creatinine 1.03 Troponins 3 normal LDL 70 Past Medical History Past Medical History: Heart Failure, Diabetes Mellitus, Hyperlipidemia, Hypertension, Myocardial Infarction (ID) Additional Past Medical History / Comment(s): Had mental breakdown several years ago and admitted for treatment. Pre-diabetic, patient has new-onset tremors with illness. ADHD Last Myocardial Infarction Date:: 01/16/14 History of Any Multi-Drug Resistant Organisms: None Reported Past Surgical History: Section, Heart Catheterization With Stent, Orth opedic Surgery Additional Past Surgical History / Comment(s): Cervical fusion, shoulder repair on the right Past Anesthesia/Blood Transfusion Reactions: No Reported Reaction Date of Last Stent Placement:: 2013 Past Psychological History: ADD/ADHD, Anxiety, Bipolar, Depression Smoking Status: Never smoker Past Alcohol Use History: None Reported Past Drug Use History: None Reported - Past Family History Mother Family Medical History: Dementia Additional Family Medical History / Comment(s): mac degeneration of the eyes. states mother at the age of 94 Father Family Medical History: Cancer Additional Family Medical History / Comment(s): Stomach CA Sister(s) Additional Family Medical History / Comment(s): mental illness - suicide Medications and Allergies Home Medications Medication Instructions Recorded Confirmed Type Furosemide [Lasix] 20 mg PO BID 01/09/16 03/06/20 History Simvastatin [Zocor] 40 mg PO HS 07/03/16 03/06/20 History oxyCODONE-APAP 10-325MG [Percocet 1 tab PO QID PRN 07/03/16 03/06/20 History 10-325 mg] Aspirin EC [Ecotrin Low Dose] 81 mg PO DAILY 08/09/17 03/06/20 History metFORMIN HCL [Glucophage] 500 mg PO AC-TID 08/09/17 03/06/20 History Pantoprazole [Protonix] 40 mg PO AC-BID #60 tablet. 09/13/17 03/06/20 Rx Celecoxib [CeleBREX] 200 mg PO DAILY 01/24/19 03/06/20 History Citalopram Hydrobromide [CeleXA] 40 mg PO DAILY 01/24/19 03/06/20 History Dextroamphetamine/Amphetamine 20 mg PO BID 01/24/19 03/06/20 History [Adderall] Folic Acid 1 mg PO DAILY 01/24/19 03/06/20 History Albuterol Sulfate [Ventolin HFA] 2 puff INHALATION RT-Q4H PRN 11/13/19 03/06/20 History Budesonide/Formoterol Fumarate 2 puff INHALATION RT-BID 11/13/19 03/06/20 History [Symbicort 80-4.5 Mcg Inhaler] Nitroglycerin Sl Tabs [Nitrostat] 0.4 mg SUBLINGUAL Q5M PRN 11/13/19 03/06/20 History Metoprolol Succinate (ER) [Toprol 25 mg PO DAILY #30 tab.er.24h 11/15/19 03/06/20 Rx XL] Cholecalciferol [Vitamin D3 (25 1,000 unit PO DAILY 03/06/20 03/06/20 History Mcg = 1000 Iu)] Fluticasone Nasal [place]key[place] [Flonase 2 spr EA NOSTRIL DAILY 03/06/20 03/06/20 History Nasal [place]] Hydrochlorothiazide 25 mg PO DAILY 03/06/20 03/06/20 History Multivitamins, Thera [Multivitamin 1 tab PO DAILY 03/06/20 03/06/20 History (formulary)] Thiamine [Vitamin B-1] 100 mg PO DAILY 03/06/20 03/06/20 History amLODIPine [Norvasc] 5 mg PO DAILY 03/06/20 03/06/20 History Allergies Allergy/AdvReac Type Severity Reaction Status Date / Time atorvastatin calcium AdvReac MUSCLE Verified 03/06/20 18:10 [From Lipitor] ACHES Physical Exam Vitals: Vital Signs Temp Pulse Pulse Resp BP BP Pulse Ox 03/07/20 08:00 97.7 F 78 18 132/63 97 03/07/20 04:00 97.8 F 69 16 134/63 95 03/07/20 00:00 98.4 F 81 16 114/55 97 03/06/20 20:00 99.1 F 80 16 137/64 97 03/06/20 18:57 80 18 115/90 95 03/06/20 17:33 89 18 108/66 97 03/06/20 15:20 99.1 F 94 20 133/52 98 Intake and Output 03/06/20 03/07/20 03/07/20 22:59 06:59 14:59 Other: # Voids 1 Weight 90.718 kg 105.8 kg Results 03/06/20 15:35 03/06/20 15:35 Cardiac Enzymes 03/06/20 03/06/20 03/06/20 Range/Units 15:35 15:35 21:14 AST 27 (14-36) U/L Troponin I <0.012 <0.012 (0.000-0.034) ng/mL 03/07/20 Range/Units 03:30 AST (14-36) U/L Troponin I <0.012 (0.000-0.034) ng/mL Coagulation 03/06/20 Range/Units 15:35 PT 9.6 (9.0-12.0) sec APTT 22.4 (22.0-30.0) sec Lipids 03/07/20 Range/Units 03:30 Triglycerides 69 (<150) mg/dL Cholesterol 149 (<200) mg/dL HDL Cholesterol 70 H (40-60) mg/dL CBC 03/06/20 Range/Units 15:35 WBC 8.5 (3.8-10.6) k/uL RBC 3.93 (3.80-5.40) m/uL Hgb 11.5 (11.4-16.0) gm/dL Hct 36.3 (34.0-46.0) % Plt Count 175 (150-450) k/uL Comprehensive Metabolic Panel 03/06/20 Range/Units 15:35 Sodium 137 (137-145) mmol/L Potassium 4.4 (3.5-5.1) mmol/L Chloride 103 (98-107) mmol/L Carbon Dioxide 27 (22-30) mmol/L BUN 17 (7-17) mg/dL Creatinine 1.03 (0.52-1.04) mg/dL Glucose 109 H (74-99) mg/dL Calcium 9.6 (8.4-10.2) mg/dL AST 27 (14-36) U/L ALT 14 (4-34) U/L Alkaline Phosphatase 82 (38-126) U/L Total Protein 7.1 (6.3-8.2) g/dL Albumin 4.2 (3.5-5.0) g/dL Current Medications Generic Name Dose Route Start Last Admin Trade Name Freq PRN Reason Stop Dose Admin Albuterol Sulfate 2.5 mg 03/06/20 22:17 Ventolin Nebulized INHALATION RT-Q4H PRN Shortness Of Breath Amlodipine Besylate 5 mg 03/07/20 09:00 03/07/20 09:08 Norvasc PO 5 mg DAILY JAYMIE Administration Aspirin 325 mg 03/07/20 09:00 03/07/20 09:07 Aspirin PO 325 mg DAILY JAYMIE Administration Budesonide/Formoterol Fumarate 2 puff 03/07/20 08:00 03/07/20 07:42 Symbicort 80-4.5 Mcg Inhaler INHALATION 2 puff RT-BID JAYMIE Administration Citalopram Hydrobromide 40 mg 03/07/20 09:00 03/07/20 09:08 Celexa PO 40 mg DAILY JAYMIE Administration Fluticasone Propionate 2 spray 03/07/20 09:00 03/07/20 09:08 Flonase Nasal [place] EA NOSTRIL Not Given DAILY JAYMIE Furosemide 20 mg 03/07/20 09:00 03/07/20 09:08 Lasix PO 20 mg BID JAYMIE Administration Meloxicam 7.5 mg 03/07/20 09:00 03/07/20 09:07 Mobic PO 7.5 mg DAILY JAYMIE Administration Metoprolol Succinate 25 mg 03/07/20 09:00 03/07/20 09:07 Toprol Xl PO 25 mg DAILY JAYMIE Administration Nitroglycerin 0.4 mg 03/06/20 17:32 Nitrostat SUBLINGUAL Q5M PRN Chest Pain Oxycodone/Acetaminophen 1 each 03/06/20 22:27 03/07/20 06:57 Percocet 10-325 PO 1 each QID PRN Administration Pain Pantoprazole Sodium 40 mg 03/06/20 22:45 03/07/20 06:57 Protonix PO 40 mg AC-BID JAYMIE Administration Intake and Output 03/06/20 03/07/20 03/07/20 22:59 06:59 14:59 Other: # Voids 1 Weight 90.718 kg 105.8 kg 03/06/20 15:35 03/06/20 15:35
--- NOTE | 2020-03-07 13:13 | PN ---
PROGRESS NOTE CHIEF COMPLAINT: Chest pain. HISTORY OF PRESENT ILLNESS: This is doing fairly well. She has had no further significant problems with shortness of breath. She still has some chest discomfort. Laboratory studies have been unremarkable so far. She has been seen by Cardiology and they plan 2D echo with Doppler. She will also be seen by Orthopedics for the knee. The x-ray does demonstrate arthritis. PHYSICAL EXAMINATION: Chest is clear. Cardiac exam is normal. Abdomen is soft and nontender. IMPRESSION: 1. Chest pain. 2. Coronary artery disease. 3. Shortness of breath. 4. Arthritis of the left knee. PLAN: 1. Orthopedic consult. 2. Await further studies from Cardiology. MMODL / IJN: [id number] /
[2020-03-07 16:46] LABS: Glucose,Whole Blood 108 mg/dL (75-99)
[2020-03-07 20:50] LABS: Glucose,Whole Blood 118 mg/dL (75-99)
[2020-03-08 04:58] VITALS: RESP 18
[2020-03-08 06:10] LABS: Glucose,Whole Blood 124 mg/dL (75-99)
[2020-03-08] MEDS: PANTOPRAZOLE 40 MG TABLET PO SCH (06:41)
[2020-03-08] MEDS: oxyCODONE-APAP 10-325MG 1 EACH TAB PO PRN ×2 (06:44→12:52)
[2020-03-08] MEDS: SYMBICORT 80-4.5 MCG INHALER INHALATION SCH (07:40)
[2020-03-08 07:58] VITALS: TEMP 97.7
[2020-03-08] MEDS: FLUTICASONE 50MCG/SPRAY NASAL 16GM EA NOSTRIL SCH (07:58)
[2020-03-08] MEDS: CITALOPRAM HYDROBROMIDE 20 MG TAB PO SCH (07:59)
[2020-03-08] MEDS: FUROSEMIDE 20 MG TAB PO SCH (07:59)
[2020-03-08] MEDS: MELOXICAM 7.5 MG TAB PO SCH (07:59)
[2020-03-08] MEDS: ASPIRIN 325 MG TAB PO SCH (07:59)
[2020-03-08] MEDS: METOPROLOL SUCCINATE (ER) 25 MG TAB.ER.24H PO SCH (07:59)
[2020-03-08] MEDS: amLODIPine 5 MG TAB PO SCH (08:00)
[2020-03-08] MEDS ORDERED: methylPREDNISolone 4 MG TAB TAPER PO SCH (10:45)
--- NOTE | 2020-03-08 11:29 | P.CNOR ---
History of Present Illness - [facility] Consult date: 03/08/20 Consult reason: joint pain History of present illness: Patient is a pleasant 74-year-old female seen at bedside this morning consultation for left knee pain. She states she developed left knee pain approximately 2 weeks ago without injury or trauma. The pain is continued and it has not improved much. She was admitted yesterday for complaints of chest pain and left knee pain. Chest pain workup has been negative thus far. Regarding her left knee pain she denies a history of gout. She denies numbness or tingling. She states the pain is mostly at the inside aspect of the left knee. Pain worsens with weightbearing in stairs. She has not noted any instability. She states she's had no prior treatments for her left knee pain. She denies calf pain. Review of systems is no for fever, chills, chest pain, shortness breath, dizziness, headaches, slurred speech or other. Review of Systems All systems: negative Constitutional: Denies chills, Denies fever Eyes: denies blurred vision, denies pain Ears, nose, mouth and throat: Denies headache, Denies sore throat Cardiovascular: Denies chest pain, Denies shortness of breath Respiratory: Denies cough Gastrointestinal: Denies abdominal pain, Denies diarrhea, Denies nausea, Denies vomiting Genitourinary: Denies dysuria, Denies hematuria Musculoskeletal: Denies myalgias Integumentary: Denies pruritus, Denies rash Neurological: Denies numbness, Denies weakness Psychiatric: Denies anxiety, Denies depression Endocrine: Denies fatigue, Denies weight change Past Medical History Past Medical History: Heart Failure, Diabetes Mellitus, Hyperlipidemia, Hypertension, Myocardial Infarction ([place]) Additional Past Medical History / Comment(s): Had mental breakdown several years ago and admitted for treatment. Pre-diabetic, patient has new-onset tremors with illness. ADHD Last Myocardial Infarction Date:: 01/16/14 History of Any Multi-Drug Resistant Organisms: None Reported Past Surgical History: Section, Heart Catheterization With Stent, Orthopedic Surgery Additional Past Surgical History / Comment(s): Cervical fusion, shoulder repair on the right Past Anesthesia/Blood Transfusion Reactions: No Reported Reaction Date of Last Stent Placement:: 2013 Past Psychological History: ADD/ADHD, Anxiety, Bipolar, Depression Smoking Status: Never smoker Past Alcohol Use History: None Reported Past Drug Use History: None Reported - Past Family History Mother Family Medical History: Dementia Additional Family Medical History / Comment(s): mac degeneration of the eyes. states mother at the age of 94 Father Family Medical History: Cancer Additional Family Medical History / Comment(s): Stomach CA Sister(s) Additional Family Medical History / Comment(s): mental illness - suicide Medications and Allergies Home Medications Medication Instructions Recorded Confirmed Type Furosemide [Lasix] 20 mg PO BID 01/09/16 03/06/20 History Simvastatin [Zocor] 40 mg PO HS 07/03/16 03/06/20 History oxyCODONE-APAP 10-325MG [Percocet 1 tab PO QID PRN 07/03/16 03/06/20 History 10-325 mg] Aspirin EC [Ecotrin Low Dose] 81 mg PO DAILY 08/09/17 03/06/20 History metFORMIN HCL [Glucophage] 500 mg PO AC-TID 08/09/17 03/06/20 History Pantoprazole [Protonix] 40 mg PO AC-BID #60 tablet. 09/13/17 03/06/20 Rx Celecoxib [CeleBREX] 200 mg PO DAILY 01/24/19 03/06/20 History Citalopram Hydrobromide [CeleXA] 40 mg PO DAILY 01/24/19 03/06/20 History Dextroamphetamine/Amphetamine 20 mg PO BID 01/24/19 03/06/20 History [Adderall] Folic Acid 1 mg PO DAILY 01/24/19 03/06/20 History Albuterol Sulfate [Ventolin HFA] 2 puff INHALATION RT-Q4H PRN 11/13/19 03/06/20 History Budesonide/Formoterol Fumarate 2 puff INHALATION RT-BID 11/13/19 03/06/20 History [Symbicort 80-4.5 Mcg Inhaler] Nitroglycerin Sl Tabs [Nitrostat] 0.4 mg SUBLINGUAL Q5M PRN 11/13/19 03/06/20 History Metoprolol Succinate (ER) [Toprol 25 mg PO DAILY #30 tab.er.24h 11/15/19 03/06/20 Rx XL] Cholecalciferol [Vitamin D3 (25 1,000 unit PO DAILY 03/06/20 03/06/20 History Mcg = 1000 Iu)] Fluticasone Nasal [place] [Flonase 2 spr EA NOSTRIL DAILY 03/06/20 03/06/20 History Nasal [place]] Hydrochlorothiazide 25 mg PO DAILY 03/06/20 03/06/20 History Multivitamins, Thera [Multivitamin 1 tab PO DAILY 03/06/20 03/06/20 History (formulary)] Thiamine [Vitamin B-1] 100 mg PO DAILY 03/06/20 03/06/20 History amLODIPine [Norvasc] 5 mg PO DAILY 03/06/20 03/06/20 History Allergies Allergy/AdvReac Type Severity Reaction Status Date / Time atorvastatin calcium AdvReac MUSCLE Verified 03/06/20 18:10 [From Lipitor] ACHES Physical Examination In general patient is in no apparent distress. Wound affect are appropriate. AO 5. Inspection of the left knee is benign with no signs of significant effusion or erythema. There is no deformity. There is tenderness at the medial joint line. It is not hot to touch. She has full extension. She can flex to 90 which reproduces medial knee pain. Patellar tracking is normal. Yash's is negative. Jose D's is negative. MCL and LCL are intact. Calf is soft and nontender. 2+ dorsalis pedis pulse and less than 2 second capillary refill is present. L2 through S1 myotomes and dermatomes are intact. Results X-rays of the left knee show moderate to advanced tricompartmental degenerative joint disease/osteoarthritis. No fractures or lesions. - Labs Labs: Abnormal Lab Results - Last 24 Hours (Table) 03/07/20 03/07/20 03/07/20 Range/Units 11:46 16:45 20:49 POC Glucose (mg/dL) 106 H 108 H 118 H (75-99) mg/dL 03/08/20 Range/Units 06:09 POC Glucose (mg/dL) 124 H (75-99) mg/dL H & H 03/06/20 Range/Units 15:35 Hgb 11.5 (11.4-16.0) gm/dL Hct 36.3 (34.0-46.0) % Coagulation 03/06/20 Range/Units 15:35 INR 0.9 (<1.2) Result Diagrams: 03/06/20 15:35 03/06/20 15:35 - Diagnostic results Knee x-ray: report reviewed, image reviewed Assessment and Plan (1) Left knee pain Narrative/Plan: There are no plans for immediate surgical intervention regarding her left knee. She likely has an exacerbation of left knee osteoarthritis/degenerative joint disease. Recommend short dose of corticosteroids, rest, ice and elevation. She has diabetes mellitus type 2 which is controlled. We'll monitor her blood glucose closely and discontinue corticosteroids should it cause significant elevation. We'll also monitor her status and if she does not improve we'll consider intra-articular corticosteroid injection. Current Visit: Yes Status: Acute Priority: Medium Code(s): M25.562 - PAIN IN LEFT KNEE SNOMED Code(s): 31250994 Time with Patient: Less than 30
--- NOTE | 2020-03-08 12:20 | P.PN ---
Subjective Patient admitted with epigastric discomfort with 3 normal cardiac enzymes Follow-up twelve-lead ECG shows sinus rhythm and normal ST segments She is known coronary artery disease status post stenting in the past. No current evidence for pulmonary embolism She has a history of diabetes and hypertension She was evaluated by orthopedics. The 0 exacerbation of osteoarthritis A short course of steroids and conservative management was recommended The do not have any plans for surgery They may consider intra-articular injection of corticosteroids On examination blood pressure is well controlled 123/53 of his mercury pulse rate in the 60s she's afebrile Heart sounds are normal no murmurs or gallops Breath sounds are clear no rhonchi no crackles No lower extremity edema but the knee is still bothersome No JVD From a cardiac standpoint I will evaluate her 2-D echo today. Her twelve-lead ECG is completely normal Further management as an outpatient Continue orthopedic recommendations Objective - Vital Signs Vital signs: Vital Signs Temp 97.7 F 03/08/20 07:57 Pulse 76 03/08/20 07:57 Resp 18 03/08/20 07:57 BP 120/76 03/08/20 07:57 Pulse Ox 96 03/08/20 07:57 Intake & Output 03/07/20 03/08/20 03/08/20 18:59 06:59 18:59 Intake Total 358 540 Balance 358 540 Weight 105.6 kg Intake: Oral 358 540 Other: # Voids 1 - Labs CBC & Chem 7: 03/06/20 15:35 03/06/20 15:35 Labs: Abnormal Lab Results - Last 24 Hours (Table) 03/07/20 03/07/20 03/08/20 Range/Units 16:45 20:49 06:09 POC Glucose (mg/dL) 108 H 118 H 124 H (75-99) mg/dL
[2020-03-08 12:24] LABS: Glucose,Whole Blood 113 mg/dL (75-99)
[2020-03-08 12:49] VITALS: BP 111/53; PULSE 73
--- NOTE | 2020-03-08 14:00 | ECHOF ---
Referral Reason:lv function MEASUREMENTS -------- HEIGHT: 165.1 cm WEIGHT: 105.7 kg BP: 123/58 IVSd: 1.0 cm (0.6 - 1.1) LVIDd: 4.2 cm (3.9 - 5.3) LVPWd: 1.3 cm (0.6 - 1.1) IVSs: 1.6 cm LVIDs: 2.8 cm LVPWs: 1.6 cm RVIDd: 2.9 cm (< 3.3) LAESV Index (A-L): 19.27 ml/m Ao Diam: 3.3 cm (2.0 - 3.7) AV Cusp: 2.1 cm (1.5 - 2.6) EPSS: 0.3 cm MV E Alcon: 1.31 m/s MV DecT: 190 ms MV A Alcon: 1.03 m/s MV E/A Ratio: 1.26 AR PHT: 485 ms RAP: 5.00 mmHg RVSP: 35.06 mmHg MV EF SLOPE: 65.82 mm/s (70 - 150) MV EXCURSION: 22.17 mm (> 18.000) FINDINGS -------- Sinus rhythm. This was a technically adequate study. The left ventricular size is normal. Left ventricular wall thickness is normal. Overall left vent ricular systolic function is normal with, an EF between 55 - 60 %. The diastolic filling pattern is normal for the age of the patient 13.55. The right ventricle is normal in size. Normal LA size by volume 22+/-6 ml/m2. The right atrium was not well visualized. Interatrial and interventricular septum intact. The aortic valve is trileaflet and appears structurally normal. Trace amount of aortic regurgitatio n. There is no evidence of aortic stenosis. Mild mitral regurgitation is present. Mild tricuspid regurgitation present. There is no evidence of pulmonary hypertension. The right v entricular systolic pressure, as measured by Doppler, is 35.06mmHg. There is no pulmonic regurgitation present. The aortic root size is normal. Normal inferior vena cava with normal inspiratory collapse consistent with estimated right atrial pre ssure of 5 mmHg. There is no pericardial effusion. CONCLUSIONS -------- 1. Sinus rhythm. 2. This was a technically adequate study. 3. The left ventricular size is normal. 4. Left ventricular wall thickness is normal. 5. Overall left ventricular systolic function is normal with, an EF between 55 - 60 %. 6. The diastolic filling pattern is normal for the age of the patient 13.55 7. The right ventricle is normal in size. 8. Normal LA size by volume 22+/-6 ml/m2. 9. The right atrium was not well visualized. 10. Interatrial and interventricular septum intact. 11. The aortic valve is trileaflet and appears structurally normal. 12. Trace amount of aortic regurgitation. 13. There is no evidence of aortic stenosis. 14. Mild mitral regurgitation is present. 15. Mild tricuspid regurgitation present. 16. There is no evidence of pulmonary hypertension. 17. The right ventricular systolic pressure, as measured by Doppler, is 35.06mmHg. 18. There is no pulmonic regurgitation present. 19. The aortic root size is normal. 20. Normal inferior vena cava with normal inspiratory collapse consistent with estimated right atrial pressure of 5 mmHg. 21. There is no pericardial effusion. FRONT END APPLICATION DEVELOPER: Adilene Sawant RDCS
--- NOTE | 2020-03-08 23:17 | DS ---
DISCHARGE SUMMARY CHIEF COMPLAINT: Chest pain and pain to the left knee. HISTORY OF PRESENT ILLNESS AND PHYSICAL EXAM: Details of this lady's history and physical can be found in the initial workup. LABORATORY STUDIES: While she was in the hospital she had laboratory studies, details of which can be found in the laboratory section of her chart. COURSE IN HOSPITAL: After admission she was placed on bedrest, started on intravenous fluids and had serial EKGs and enzymes and they were normal. She was seen by Cardiology. She is also seen by Orthopedics because of her left knee pain. She was doing well and was released by Cardiology. It was felt that she could go home. She will go home on her usual activity, diet and medication and she will go home on a Medrol Dosepak. She is to follow up with Cardiology and orthopedics and we will see her in about a week. FINAL DIAGNOSES: 1. Chest pain. 2. Unstable angina pectoris. 3. Coronary artery disease. 4. Osteoarthritis of left knee. OPERATIONS: None. CONSULTATIONS: Orthopedics and Cardiology. She is improved. MMODL / CHANTALN: [id number] /
[2020-03-09] MEDS ORDERED: methylPREDNISolone 4 MG TAB TAPER PO SCH (09:00)
--- NOTE | 2020-03-11 12:40 | CDI ---
Documentation Clarification Form Date: 03/11/20 From: Alexus Juarez Phone: If you have a question about this query, please contact Adrienne Larios, Net Architect at [phone] between 8am and 5pm. Admit Date: 03/08/20 Discharge Date: 03/08/20 Patient Name: JOSE GUADALUPE MUNIZ Visit Number: [id number] ATTENTION: The Clinical Documentation Specialists (CDI) and [facility] Coding Staff appreciate your assistance in clarifying documentation. Please respond to the clarification below the line at the bottom and electronically sign. The CDI & [facility] Coding staff will review the response and follow-up if needed. Please note: Queries are made part of the Legal Health Record. If you have any questions, please contact the author of this message via ITS. Dear Dr. Alfonso Hernandez, CHF is documented in the ED note and in past medical history of both consults. History/Risk Factors: CAD, Type 2 DM Clinical Indicators: Presents with chest pain, shortness of breath and left leg pain. VS/Pulse OX: T-99.1, P-94, R-20, BP-133/52, O2 sat-98 BNP: 519 Echocardiogram Results: Left ventricular wall thickness is normal. Overall left ventricular systolic function is normal with, an EF between 55 -- 60 %. 03/06 Chest X Ray: No acute pulmonary process. Treatment: Home meds continued-Lasix 20 mg PO BID In your professional opinion, can you please clarify the type of CHF if known? Chronic Systolic Heart Failure Chronic Diastolic Heart Failure Chronic Systolic & Diastolic Heart Failure Unable to Determine Other, please specify MTDD
--- NOTE | 2020-03-13 01:21 | MISC ---
MISCELLANOUS REPORT QUERY: Type of CHF, chronic diastolic. MMODL / IJN: [id number] /
== END 2020-03-08 16:50 | disposition home or self-care (01) | DRG 303 ==
LOC: EC 15:16 → 3SCARD 17:36 → OBSVTOIN 03-08 10:08
PROVIDERS: ADMIT Family Medicine; ATTEND Family Medicine
DX: I25.110 Atherosclerotic heart disease of native coronary artery with unstable angina pectoris (principal); I50.32 Chronic diastolic (congestive) heart failure; I11.0 Hypertensive heart disease with heart failure; E11.9 Type 2 diabetes mellitus without complications; E66.01 Morbid (severe) obesity due to excess calories; M17.12 Unilateral primary osteoarthritis, left knee; E78.5 Hyperlipidemia, unspecified; I25.2 Old myocardial infarction; R25.1 Tremor, unspecified; F32.9 Major depressive disorder, single episode, unspecified; F41.9 Anxiety disorder, unspecified; F90.9 Attention-deficit hyperactivity disorder, unspecified type; Z68.38 Body mass index [BMI] 38.0-38.9, adult; Z79.82 Long term (current) use of aspirin; Z79.51 Long term (current) use of inhaled steroids; Z79.1 Long term (current) use of non-steroidal anti-inflammatories (NSAID); Z79.84 Long term (current) use of oral hypoglycemic drugs; Z79.899 Other long term (current) drug therapy; Z95.5 Presence of coronary angioplasty implant and graft; Z98.1 Arthrodesis status; Z98.890 Other specified postprocedural states; Z88.8 Allergy status to other drugs, medicaments and biological substances; Z80.0 Family history of malignant neoplasm of digestive organs; Z81.8 Family history of other mental and behavioral disorders; Z83.518 Family history of other specified eye disorder
CPT/HCPCS: 36415; 71046; 71275; 80053; 80061; 83690; 83735; 83880; 84484; 84550; 85025; 85379; 85610; 85730; 87635; 93005; 93306; 94640; 99285

== ENCOUNTER → 2020-04-16 | Outpatient (CLI) | payer MEDICARE, OTHER ==
--- NOTE | 2020-04-16 15:25 | US ---
EXAMINATION TYPE: US venous doppler duplex LE LT DATE OF EXAM: 04/16/2020 3:11 PM COMPARISON: NONE CLINICAL HISTORY: Left M25.562 pain in left leg. Pain left leg, patient on blood thinner - cardiac SIDE PERFORMED: left TECHNIQUE: The lower extremity deep venous system is examined utilizing real time linear array sonog adwoa with graded compression, doppler sonography and color-flow sonography. VESSELS IMAGED: External Iliac Vein (EIV) Common Femoral Vein Deep Femoral Vein Greater Saphenous Vein * Femoral Vein Popliteal Vein Small Saphenous Vein * Proximal Calf Veins (* superficial vessels) Left Leg: No evidence of DVT IMPRESSION: No evidence for DVT at this time.
== END | disposition home or self-care (01) ==
LOC: RADUSWWP 14:47
PROVIDERS: ATTEND Orthopaedic Surgery
DX: M79.662 Pain in left lower leg (principal); M25.562 Pain in left knee; M17.12 Unilateral primary osteoarthritis, left knee

== ENCOUNTER 2022-06-29 04:13 | Emergency (ER) | payer MEDICARE, OTHER ==
[2022-06-29 04:22] VITALS: BP 124/67; PULSE 77; RESP 16; TEMP 98.1
--- NOTE | 2022-06-29 04:34 | ED ---
General Adult HPI - General Chief complaint: Recheck/Abnormal Lab/Rx Stated complaint: Post-Op Bleeding Time Seen by Provider: 06/29/22 04:23 Source: patient, RN notes reviewed, old records reviewed Mode of arrival: ambulatory Limitations: no limitations - History of Present Illness Initial comments: 76-year-old female who had 2 moles removed from the right side of her neck at the primary care office today with sutures placed presents for bleeding from one of these sites. She had soaked through several bandages. She is on aspirin, no anticoagulation. She was unable to stop bleeding at home. - Related Data Home Medications Medication Instructions Recorded Confirmed Furosemide [Lasix] 20 mg PO BID 01/09/16 03/06/20 Simvastatin [Zocor] 40 mg PO HS 07/03/16 03/06/20 oxyCODONE-APAP 10-325MG [Percocet 1 tab PO QID PRN 07/03/16 03/06/20 10-325 mg] Aspirin EC [Ecotrin Low Dose] 81 mg PO DAILY 08/09/17 03/06/20 metFORMIN HCL [Glucophage] 500 mg PO AC-TID 08/09/17 03/06/20 Celecoxib [CeleBREX] 200 mg PO DAILY 01/24/19 03/06/20 Citalopram Hydrobromide [CeleXA] 40 mg PO DAILY 01/24/19 03/06/20 Dextroamphetamine/Amphetamine 20 mg PO BID 01/24/19 03/06/20 [Adderall] Folic Acid 1 mg PO DAILY 01/24/19 03/06/20 Albuterol Sulfate [Ventolin HFA] 2 puff INHALATION RT-Q4H PRN 11/13/19 03/06/20 Budesonide/Formoterol Fumarate 2 puff INHALATION RT-BID 11/13/19 03/06/20 [Symbicort 80-4.5 Mcg Inhaler] Nitroglycerin Sl Tabs [Nitrostat] 0.4 mg SUBLINGUAL Q5M PRN 11/13/19 03/06/20 Cholecalciferol [Vitamin D3 (25 1,000 unit PO DAILY 03/06/20 03/06/20 Mcg = 1000 Iu)] Fluticasone Nasal [place] [Flonase 2 spr EA NOSTRIL DAILY 03/06/20 03/06/20 Nasal [place]] Multivitamins, Thera [Multivitamin 1 tab PO DAILY 03/06/20 03/06/20 (formulary)] Thiamine [Vitamin B-1] 100 mg PO DAILY 03/06/20 03/06/20 amLODIPine [Norvasc] 5 mg PO DAILY 03/06/20 03/06/20 hydroCHLOROthiazide 25 mg PO DAILY 03/06/20 03/06/20 Previous Rx's Medication Instructions Recorded Pantoprazole [Protonix] 40 mg PO AC-BID #60 tablet.dr 09/13/17 Metoprolol Succinate (ER) [Toprol 25 mg PO DAILY #30 tab.er.24h 11/15/19 XL] methylPREDNISolone Dose Pack 24 mg PO DAILY #1 pack 03/08/20 [Medrol Dose Pack] oxyCODONE-APAP 10-325MG [Percocet 1 tab PO Q6HR PRN 3 Days #12 tab 03/08/20 10-325 mg] Allergies Allergy/AdvReac Type Severity Reaction Status Date / Time atorvastatin calcium AdvReac MUSCLE Verified 06/29/22 04:19 [From Lipitor] ACHES Review of Systems ROS Statement: Those systems with pertinent positive or pertinent negative responses have been documented in the HPI. ROS Other: All systems not noted in ROS Statement are negative. Past Medical History Past Medical History: Heart Failure, Diabetes Mellitus, Hyperlipidemia, Hypertension, Myocardial Infarction ([place]) Additional Past Medical History / Comment(s): Had mental breakdown several years ago and admitted for treatment. Pre-diabetic, patient has new-onset tremors with illness. ADHD Last Myocardial Infarction Date:: 01/16/14 History of Any Multi-Drug Resistant Organisms: None Reported Past Surgical History: Section, Heart Catheterization With Stent, Orthopedic Surgery Additional Past Surgical History / Comment(s): Cervical fusion, shoulder repair on the right Past Anesthesia/Blood Transfusion Reactions: No Reported Reaction Date of Last Stent Placement:: 2013 Past Psychological History: ADD/ADHD, Anxiety, Bipolar, Depression Smoking Status: Never smoker Past Alcohol Use History: None Reported Past Drug Use History: None Reported - Past Family History Mother Family Medical History: Dementia Additional Family Medical History / Comment(s): mac degeneration of the eyes. states mother at the age of 94 Father Family Medical History: Cancer Additional Family Medical History / Comment(s): Stomach CA Sister(s) Additional Family Medical History / Comment(s): mental illness - suicide General Exam Limitations: no limitations General appearance: alert, in no apparent distress Head exam: Present: atraumatic, normocephalic Eye exam: Present: normal appearance, PERRL ENT exam: Present: normal exam Neck exam: Present: other (2 sites of mole excision with nylon suture, no active bleeding.) Cardiovascular Exam: Present: regular rate, normal rhythm GI/Abdominal exam: Absent: distended Extremities exam: Present: normal inspection, normal capillary refill Course Vital Signs 06/29/22 04:19 Temperature 98.1 F Pulse Rate 77 Respiratory 16 Rate Blood Pressure 124/67 O2 Sat by Pulse 98 Oximetry Medical Decision Making - Medical Decision Making There is no continued bleeding at the time my evaluation, no pulsatile hematoma, no hematoma present whatsoever. Patient's instructed on how to stop bleeding if it was to return at home. Discharged in stable condition. Disposition Clinical Impression: History of removal of skin mole Disposition: HOME SELF-CARE Condition: Good Instructions (If sedation given, give patient instructions): Mole or Nevus Excision (DC) Additional Instructions: If bleeding returns, place one finger over the bleeding site. Over 15 minutes. Is patient prescribed a controlled substance at d/c from ED?: No Referrals: Alfonso Hernandez MD [Primary Care Provider] - 1-2 days Time of Disposition: 04:34
== END 2022-06-29 04:40 | disposition home or self-care (01) ==
LOC: EC 04:13
DX: L76.22 Postprocedural hemorrhage of skin and subcutaneous tissue following other procedure (principal); E11.9 Type 2 diabetes mellitus without complications; I10 Essential (primary) hypertension; E78.5 Hyperlipidemia, unspecified; I25.2 Old myocardial infarction; I50.9 Heart failure, unspecified; Z79.84 Long term (current) use of oral hypoglycemic drugs; Z88.1 Allergy status to other antibiotic agents; Z79.899 Other long term (current) drug therapy
CPT/HCPCS: 99282

== ENCOUNTER 2023-05-29 14:33 | Emergency (ER) | payer MEDICARE, OTHER ==
[2023-05-29] MEDS ORDERED: HYDROcodone/APAP 5-325MG 1 EACH TAB PO STA (15:44)
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
[2023-05-29 18:04] VITALS: BP 136/63; PULSE 71; RESP 16; TEMP 97.9
== END 2023-05-29 18:04 | disposition home or self-care (01) ==
LOC: EC 14:33
DX: S32.010A Wedge compression fracture of first lumbar vertebra, initial encounter for closed fracture (principal); E11.9 Type 2 diabetes mellitus without complications; I11.0 Hypertensive heart disease with heart failure; I50.9 Heart failure, unspecified; I25.2 Old myocardial infarction; E78.5 Hyperlipidemia, unspecified; F31.9 Bipolar disorder, unspecified; F90.9 Attention-deficit hyperactivity disorder, unspecified type; F41.9 Anxiety disorder, unspecified; Z79.51 Long term (current) use of inhaled steroids; Z79.84 Long term (current) use of oral hypoglycemic drugs; Z79.82 Long term (current) use of aspirin; Z79.899 Other long term (current) drug therapy; Z88.8 Allergy status to other drugs, medicaments and biological substances; W19.XXXA Unspecified fall, initial encounter
CPT/HCPCS: 99283

== ENCOUNTER 2023-06-01 14:00 | Emergency (ER) | payer MEDICARE, OTHER ==
[2023-06-01 14:18] VITALS: RESP 18
[2023-06-01] MEDS ORDERED: SODIUM CHLORIDE 0.9% 1,000 ML IV STA (14:37)
[2023-06-01] MEDS ORDERED: ONDANSETRON 4 MG/2 ML VIAL IVP STA (14:38)
[2023-06-01] MEDS ORDERED: KETOROLAC 15 MG/ML 1 ML VIAL IVP STA (15:15)
[2023-06-01 15:23] LABS: Appearance,Urine Clear (Clear); Bilirubin,Urine 1+ (Negative); Blood,Urine Large (Negative); Color,Urine Dark Brown; Glucose,Urine (UA) Negative (Negative); Ketones,Urine Negative (Negative); Leukocyte Esterase,Urine Small (Negative); Mucus,Urine Rare /hpf; Nitrite,Urine Negative (Negative); PH, Urine 6.5 (5.0-8.0); Protein,Urine 1+ (Negative); RBC,Urine 58 /hpf (0-5); Specific Gravity,Urine 1.018 (1.001-1.035); Squamous Epithelial Cell,Urine 3 /hpf (0-4); WBC,Urine 4 /hpf (0-5)
[2023-06-01 15:25] LABS: ALT 17 U/L (4-34); AST 27 U/L (14-36); African American GFR (CKD) 47 (>60 ml/min/1.73 sqM); Albumin 3.8 g/dL (3.5-5.0); Alkaline Phosphatase 100 U/L (38-126); Anion Gap 9 mmol/L; Blood Urea Nitrogen 23 mg/dL (7-17); Calcium 8.9 mg/dL (8.4-10.2); Carbon Dioxide 25 mmol/L (22-30); Chloride 104 mmol/L (98-107); Glucose 118 mg/dL (74-99); Lipase 236 U/L (23-300); Non-African American GFR(CKD) 40 (>60 ml/min/1.73 sqM); Potassium 3.7 mmol/L (3.5-5.1); Sodium 138 mmol/L (137-145); Total Bilirubin 0.7 mg/dL (0.2-1.3)
[2023-06-01 15:34] LABS: Basophils # (A) 0.1 k/uL (0-0.2); Basophils % (A) 0 %; Eosinophils # (A) 0.4 k/uL (0-0.7); Eosinophils % (A) 2 %; HCT 36.9 % (34.0-46.0); HGB 11.9 gm/dL (11.4-16.0); Lymphocytes # (A) 1.6 k/uL (1.0-4.8); Lymphocytes % (A) 9 %; MCH 28.6 pg (25.0-35.0); MCHC 32.2 g/dL (31.0-37.0); Mean Platelet Volume 10.7; Monocytes # (A) 0.9 k/uL (0-1.0); Monocytes % (A) 5 %; Neutrophils # (A) 14.2 k/uL (1.3-7.7); Neutrophils % (A) 82 %; Platelet Count 182 k/uL (150-450); RBC 4.14 m/uL (3.80-5.40); RDW 13.6 % (11.5-15.5); WBC 17.3 k/uL (3.8-10.6)
--- NOTE | 2023-06-01 15:41 | XR ---
EXAMINATION TYPE: XR KUB DATE OF EXAM: 06/01/2023 COMPARISON: CT abdomen pelvis 08/09/2017, KUB 07/03/2016 HISTORY: Constipation TECHNIQUE: Upright KUB image of the abdomen is obtained FINDINGS: Small bowel demonstrates no evidence for dilatation or air fluid levels. Gas and fecal material is seen in non-distended colon. No convincing evidence for pneumoperitoneum. No unusual calcifications. The lung bases are clear. The osseous structures are intact. Stable sclerotic focus within the right proximal femur most consis tent with a benign bone island. IMPRESSION: 1. Overall nonobstructive bowel gas pattern. 2. Mild to moderate colonic stool burden.
--- NOTE | 2023-06-01 16:55 | CT ---
EXAMINATION TYPE: CT abdomen pelvis wo con DATE OF EXAM: 06/01/2023 COMPARISON: 05/09/2017 HISTORY: Abdominal pain,vomiting. Back pain from fall. CT DLP: 971.5 mGycm Examination of the solid and hollow viscera is limited given the lack of contrast. FINDINGS: LUNG BASES: No evidence for nodule. No evidence for infiltrate. Small hiatal hernia noted. Small righ t-sided pleural effusion. LIVER/GB: There is gallbladder hydrops: The gallbladder measuring 11 cm in greatest dimension. No rodriguez cified cholelithiasis or wall thickening. Common bile duct does not appear to be dilated. No space-oc cupying hepatic lesion. PANCREAS: No pancreatic mass identified. No inflammatory process seen. SPLEEN: No evidence for splenomegaly. No intrasplenic lesions seen. ADRENALS: No adrenal nodules identified. Mild left adrenal hyperplasia seen. KIDNEYS: No evidence for renal mass. No nephrolithiasis. No hydronephrosis. BOWEL: Nonvisualization of the appendix right lower quadrant inflammatory process is seen. No evidenc e of bowel obstruction. No inflammatory process. Moderate fecal stasis. Lymph nodes: No evidence for adenopathy greater than 1 cm. Abdominal aorta: Atheromatous changes seen. No evidence for aneurysm. Genital organs: Left ovarian lesion is unchanged from prior study and measures 2.3 cm with adjacent c alcification. Other: Degenerative changes with mild spinal stenosis suggested at L4-5. IMPRESSION: 1. Gallbladder hydrops without wall thickening. Cholecystic fluid. 2. Moderate fecal stasis. 3. Small hiatal hernia. 4. Chronic lesion left ovary unchanged since 2017. 5. Degenerative disc disease and mild spinal stenosis at L4-5.
[2023-06-01] MEDS ORDERED: HYDROmorphone 0.5 MG/0.5 ML SYRINGE IVP STA ×2 (17:20→18:37)
--- NOTE | 2023-06-01 18:00 | US ---
EXAMINATION TYPE: US abdomen limited DATE OF EXAM: 06/01/2023 COMPARISON: CT:today CLINICAL INDICATION: Female, 77 years old with history of pain; pain. Hydropic GB TECHNIQUE: Multiple sonographic images of the right upper quadrant are obtained. FINDINGS: EXAM MEASUREMENTS: Liver Length: 14.2 cm Gallbladder Wall: 0.19 cm CBD: 0.48 cm Right Kidney: 10.0 x 4.4 x 4.7 cm GUSSET RIPPER NOTES: Pancreas: wnl Liver: wnl Gallbladder: Hydropic measuring 10.2 cm Evidence for sonographic Sam's sign: No CBD: wnl Right Kidney: wnl IMPRESSION: Gallbladder hydrops without cholelithiasis, gallbladder wall thickening or pericholecystic fluid.
[2023-06-01] MEDS ORDERED: DOCUSATE 100 MG CAP PO STA (18:06)
--- NOTE | 2023-06-01 18:21 | ED ---
Abdominal Pain HPI - General Chief Complaint: Abdominal Pain Stated Complaint: Abd/Back Pain, N/V/D Time Seen by Provider: 06/01/23 14:37 Source: patient, family Mode of arrival: EMS - History of Present Illness Initial Comments: Patient is a 77-year-old female who presents to the emergency department for abdominal pain. Patient fractured her lumbar spine a few days ago she is currently taking Aiken. She has not had a bowel movement since she started the Aiken. Patient feels constipated. She has not tried any fvfq-nyk-isddnoc remedies. She has mild generalized abdominal pain. She feels nauseous no vomiting. No fever or chills. No urinary symptoms. - Related Data Home Medications Medication Instructions Recorded Confirmed Furosemide [Lasix] 20 mg PO BID 01/09/16 03/06/20 Simvastatin [Zocor] 40 mg PO HS 07/03/16 03/06/20 oxyCODONE-APAP 10-325MG [Percocet 1 tab PO QID PRN 07/03/16 03/06/20 10-325 mg] Aspirin EC [Ecotrin Low Dose] 81 mg PO DAILY 08/09/17 03/06/20 metFORMIN HCL [Glucophage] 500 mg PO AC-TID 08/09/17 03/06/20 Celecoxib [CeleBREX] 200 mg PO DAILY 01/24/19 03/06/20 Citalopram Hydrobromide [CeleXA] 40 mg PO DAILY 01/24/19 03/06/20 Dextroamphetamine/Amphetamine 20 mg PO BID 01/24/19 03/06/20 [Adderall] Folic Acid 1 mg PO DAILY 01/24/19 03/06/20 Albuterol Sulfate [Ventolin HFA] 2 puff INHALATION RT-Q4H PRN 11/13/19 03/06/20 Budesonide/Formoterol Fumarate 2 puff INHALATION RT-BID 11/13/19 03/06/20 [Symbicort 80-4.5 Mcg Inhaler] Nitroglycerin Sl Tabs [Nitrostat] 0.4 mg SUBLINGUAL Q5M PRN 11/13/19 03/06/20 Cholecalciferol [Vitamin D3 (25 1,000 unit PO DAILY 03/06/20 03/06/20 Mcg = 1000 Iu)] Fluticasone Nasal [place] [Flonase 2 spr EA NOSTRIL DAILY 03/06/20 03/06/20 Nasal [place]] Multivitamins, Thera [Multivitamin 1 tab PO DAILY 03/06/20 03/06/20 (formulary)] Thiamine [Vitamin B-1] 100 mg PO DAILY 03/06/20 03/06/20 amLODIPine [Norvasc] 5 mg PO DAILY 03/06/20 03/06/20 hydroCHLOROthiazide 25 mg PO DAILY 03/06/20 03/06/20 Previous Rx's Medication Instructions Recorded Pantoprazole [Protonix] 40 mg PO AC-BID #60 tablet.dr 09/13/17 Metoprolol Succinate (ER) [Toprol 25 mg PO DAILY #30 tab.er.24h 11/15/19 XL] methylPREDNISolone Dose Pack 24 mg PO DAILY #1 pack 03/08/20 [Medrol Dose Pack] oxyCODONE-APAP 10-325MG [Percocet 1 tab PO Q6HR PRN 3 Days #12 tab 03/08/20 10-325 mg] HYDROcodone/APAP 10-325MG [Aiken 1 tab PO Q6HR PRN 3 Days #12 tab 05/29/23 10-325] Docusate [Colace] 100 mg PO DAILY #14 capsule 06/01/23 Ondansetron Odt [Zofran Odt] 4 mg PO Q8HR PRN #10 tab 06/01/23 polyethylene glycoL 3350 [Miralax] 17 gm PO DAILY PRN #7 packet 06/01/23 Allergies Allergy/AdvReac Type Severity Reaction Status Date / Time atorvastatin calcium AdvReac MUSCLE Verified 06/01/23 14:18 [From Lipitor] ACHES Review of Systems ROS Statement: Those systems with pertinent positive or pertinent negative responses have been documented in the HPI. ROS Other: All systems not noted in ROS Statement are negative. Past Medical History Past Medical History: Heart Failure, Diabetes Mellitus, Hyperlipidemia, Hypertension, Myocardial Infarction ([place]) Additional Past Medical History / Comment(s): Had mental breakdown several years ago and admitted for treatment. Pre-diabetic, patient has new-onset tremors with illness. ADHD Last Myocardial Infarction Date:: 01/16/14 History of Any Multi-Drug Resistant Organisms: None Reported Past Surgical History: Section, Heart Catheterization With Stent, Orthopedic Surgery Additional Past Surgical History / Comment(s): Cervical fusion, shoulder repair on the right Past Anesthesia/Blood Transfusion Reactions: No Reported Reaction Date of Last Stent Placement:: 2013 Past Psychological History: ADD/ADHD, Anxiety, Bipolar, Depression Smoking Status: Never smoker Past Alcohol Use History: None Reported Past Drug Use History: None Reported - Past Family History Mother Family Medical History: Dementia Additional Family Medical History / Comment(s): mac degeneration of the eyes. states mother at the age of 94 Father Family Medical History: Cancer Additional Family Medical History / Comment(s): Stomach CA Sister(s) Additional Family Medical History / Comment(s): mental illness - suicide General Exam General appearance: alert Eye exam: Present: normal appearance, PERRL, EOMI. Absent: scleral icterus, conjunctival injection, periorbital swelling Respiratory exam: Present: normal lung sounds bilaterally. Absent: respiratory distress, wheezes, rales, rhonchi, stridor Cardiovascular Exam: Present: regular rate, normal rhythm, normal heart sounds. Absent: systolic murmur, diastolic murmur, rubs, gallop, clicks GI/Abdominal exam: Present: soft, normal bowel sounds. Absent: distended, tenderness, guarding, rebound, rigid Neurological exam: Present: alert Psychiatric exam: Present: normal affect, normal mood Skin exam: Present: warm, dry, intact, normal color. Absent: rash Course Vital Signs 06/01/23 06/01/23 14:11 18:51 Temperature 98.3 F 98.2 F Pulse Rate 64 62 Respiratory 18 18 Rate Blood Pressure 111/61 106/57 O2 Sat by Pulse 96 Oximetry Medical Decision Making - Medical Decision Making Was pt. sent in by a medical professional or institution (, PA, ASSEMBLER TESTER, urgent care, hospital, or fpc...) When possible be specific @ -No Did you speak to anyone other than the patient for history (EMS, parent, family, police, friend...)? What history was obtained from this source @ -No Did you review nursing and triage notes (agree or disagree)? Why? @ -I reviewed and agree with nursing and triage notes Were old charts reviewed (outside hosp., previous admission, EMS record, old EKG, old radiological studies, urgent care reports/EKG's, fpc records)? Report findings @ -No old charts were reviewed Differential Diagnosis (chest pain, altered mental status, abdominal pain women, abdominal pain men, vaginal bleeding, weakness, fever, dyspnea, syncope, headache, dizziness, GI bleed, back pain, seizure, CVA, palpatations, mental health)? @ Differential Abdominal Pain Women: Appendicitis, Cholecystitis, diverticulosis, ischemic bowel, pancreatitis, hepatitis, UTI, gastroenteritis, AAA, incarcerated hernia, bowel obstruction, constipation, inflammatory bowel, hepatitis, peptic ulcer disease, splenic infarction, perforated viscus, vulvitis, ovarian torsion, PID, kidney stone, placenta abruption, this is not meant to be an all-inclusive list EKG interpreted by me (3pts min.). @ -As above X-rays interpreted by me (1pt min.). @ Qthp-[id number] colonic stool burden. No obstruction CT interpreted by me (1pt min.). @ -Gallbladder hydrops without wall thickening. Cholecystic fluid. Moderate fecal stasis U/S interpreted by me (1pt. min.). @ -Gallbladder hydrops without cholelithiasis, gallbladder wall thickening, pericholecystic fluid What testing was considered but not performed or refused? (CT, X-rays, U/S, labs)? Why? @ -None What meds were considered but not given or refused? Why? @ -None Did you discuss the management of the patient with other professionals (professionals i.e. , PA, ASSEMBLER TESTER, lab, RT, psych nurse, social insurance specialist, immigration lawyer, t eacher, weapons officer, employment case manager)? Give summary @ -No Was smoking cessation discussed for >3mins.? @ -No Was critical care preformed (if so, how long)? @ -No Were there social determinants of health that impacted care today? How? (Homelessness, low income, unemployed, alcoholism, drug addiction, transportation, low edu. Level, literacy, decrease access to med. care, penitentiary, rehab)? @ -No Was there de-escalation of care discussed even if they declined (Discuss DNR or withdrawal of care, Hospice)? DNR status @ -No What co-morbidities impacted this encounter? (DM, HTN, Smoking, COPD, CAD, Cancer, CVA, ARF, Chemo, Hep., AIDS, mental health diagnosis, sleep apnea, morbid obesity)? @ -None Was patient admitted / discharged? Hospital course, mention meds given and [place], prescriptions, significant lab abnormalities, going to OR and other pertinent info. @ -Patient presenting with abdominal pain and constipation. She is afebrile. The abdomen is soft and nontender in all 4 quadrants. X-ray obtained interpreted by myself showing [id number] colonic stool burden without obstruction.Laboratory studies obtained. Patient does have leukocytosis of 17.3 with left shift. LFTs normal. l Urinalysis does reveal 58 RBCs with small leukocyte esterase. No bacteria X-ray interpreted by myself showing [id number]-[id number] colonic stool burden w ithout obstruction. Given leukocytosis and hematuria CT of abdomen and pelvis with contrast was obtained interpreted by myself/radiology showing gallbladder hydrops without wall thickening. There is concern for cholecystic fluid. There is moderate fecal stasis. At this time gallbladder pathology could not be ruled out. Ultrasound was obtained for definitive which showed gallbladder hydrops wi thout. Cholecystic fluid. There is no gallbladder wall thickening, no cholelithiasis. Pain and nausea controlled. Patient had a large bowel movement during emergency stay and felt relief. Discussed results with patient. She will be placed on stool softener and will take MiraLAX as needed as her Aiken is likely contributing to her constipation. Discussed return parameters. Undiagnosed new problem with uncertain prognosis? @ -No Drug Therapy requiring intensive monitoring for toxicity (Heparin, Nitro, Insulin, Cardizem)? @ -No Were any procedures done? @ -No Diagnosis/symptom? @ -Abdominal pain, constipation Acute, or Chronic, or Acute on Chronic? @Acute Uncomplicated (without systemic symptoms) or Complicated (systemic symptoms)? @ -Uncomplicated Side effects of treatment? @ -No Exacerbation, Progression, or Severe Exacerbation? @ -No Poses a threat to life or bodily function? How? (Chest pain, [place], [place], pneumonia, PE, COPD, DKA, ARF, appy, cholecystitis, CVA, Diverticulitis, Homicidal, Suicidal, threat to staff... and all critical care pts) @ -[No] Dr. Tam is my attending - Lab Data Result diagrams: 06/01/23 14:57 06/01/23 14:57 Lab Results 06/01/23 06/01/23 06/01/23 Range/Units 14:57 14:57 14:57 WBC 17.3 H (3.8-10.6) k/uL RBC 4.14 (3.80-5.40) m/uL Hgb 11.9 (11.4-16.0) gm/dL Hct 36.9 (34.0-46.0) % MCV 89.0 (80.0-100.0) fL MCH 28.6 (25.0-35.0) pg MCHC 32.2 (31.0-37.0) g/dL RDW 13.6 (11.5-15.5) % Plt Count 182 (150-450) k/uL MPV 10.7 Neutrophils % 82 % Lymphocytes % 9 % Monocytes % 5 % Eosinophils % 2 % Basophils % 0 % Neutrophils # 14.2 H (1.3-7.7) k/uL Lymphocytes # 1.6 (1.0-4.8) k/uL Monocytes # 0.9 (0-1.0) k/uL Eosinophils # 0.4 (0-0.7) k/uL Basophils # 0.1 (0-0.2) k/uL Sodium 138 (137-145) mmol/L Potassium 3.7 (3.5-5.1) mmol/L Chloride 104 (98-107) mmol/L Carbon Dioxide 25 (22-30) mmol/L Anion Gap 9 mmol/L BUN 23 H (7-17) mg/dL Creatinine 1.29 H (0.52-1.04) mg/dL Est GFR (CKD-EPI)AfAm 47 (>60 ml/min/1.73 sqM) Est GFR (CKD-EPI)NonAf 40 (>60 ml/min/1.73 sqM) Glucose 118 H (74-99) mg/dL Plasma Lactic Acid Brijesh (0.7-2.0) mmol/L Calcium 8.9 (8.4-10.2) mg/dL Total Bilirubin 0.7 (0.2-1.3) mg/dL AST 27 (14-36) U/L ALT 17 (4-34) U/L Alkaline Phosphatase 100 (38-126) U/L Total Protein 7.0 (6.3-8.2) g/dL Albumin 3.8 (3.5-5.0) g/dL Lipase 236 (23-300) U/L Urine Color Dark Brown Urine Appearance Clear (Clear) Urine pH 6.5 (5.0-8.0) Ur Specific [place] 1.018 (1.001-1.035) Urine Protein 1+ H (Negative) Urine Glucose (UA) Negative (Negative) Urine Ketones Negative (Negative) Urine Blood Large H (Negative) Urine Nitrite Negative (Negative) Urine Bilirubin 1+ H (Negative) Urine Urobilinogen 8.0 (<2.0) mg/dL Ur Leukocyte Esterase Small H (Negative) Urine RBC 58 H (0-5) /hpf Urine WBC 4 (0-5) /hpf Ur Squamous Epith Cells 3 (0-4) /hpf Urine Mucus Rare H (None) /hpf 06/01/23 Range/Units 14:57 WBC (3.8-10.6) k/uL RBC (3.80-5.40) m/uL Hgb (11.4-16.0) gm/dL Hct (34.0-46.0) % MCV (80.0-100.0) fL MCH (25.0-35.0) pg MCHC (31.0-37.0) g/dL RDW (11.5-15.5) % Plt Count (150-450) k/uL MPV Neutrophils % % Lymphocytes % % Monocytes % % Eosinophils % % Basophils % % Neutrophils # (1.3-7.7) k/uL Lymphocytes # (1.0-4.8) k/uL Monocytes # (0-1.0) k/uL Eosinophils # (0-0.7) k/uL Basophils # (0-0.2) k/uL Sodium (137-145) mmol/L Potassium (3.5-5.1) mmol/L Chloride (98-107) mmol/L Carbon Dioxide (22-30) mmol/L Anion Gap mmol/L BUN (7-17) mg/dL Creatinine (0.52-1.04) mg/dL Est GFR (CKD-EPI)AfAm (>60 ml/min/1.73 sqM) Est GFR (CKD-EPI)NonAf (>60 ml/min/1.73 sqM) Glucose (74-99) mg/dL Plasma Lactic Acid Brijesh 0.8 (0.7-2.0) mmol/L Calcium (8.4-10.2) mg/dL Total Bilirubin (0.2-1.3) mg/dL AST (14-36) U/L ALT (4-34) U/L Alkaline Phosphatase (38-126) U/L Total Protein (6.3-8.2) g/dL Albumin (3.5-5.0) g/dL Lipase (23-300) U/L Urine Color Urine Appearance (Clear) Urine pH (5.0-8.0) Ur Specific [place] (1.001-1.035) Urine Protein (Negative) Urine Glucose (UA) (Negative) Urine Ketones (Negative) Urine Blood (Negative) Urine Nitrite (Negative) Urine Bilirubin (Negative) Urine Urobilinogen (<2.0) mg/dL Ur Leukocyte Esterase (Negative) Urine RBC (0-5) /hpf Urine WBC (0-5) /hpf Ur Squamous Epith Cells (0-4) /hpf Urine Mucus (None) /hpf Disposition Clinical Impression: Constipation, Abdominal pain Disposition: HOME SELF-CARE Condition: Good Instructions (If sedation given, give patient instructions): Constipation (ED), High Fiber Diet (ED), Abdominal Pain (ED) Additional Instructions: Increase fiber and water intake which will help constipation. Take stool on her daily. Take MiraLAX as needed for constipation. Follow-up with primary care provider in one to 2 days. Return to the emergency department if you experience new, concerning, or worsening symptoms. Prescriptions: Docusate [Colace] 100 mg PO DAILY #14 capsule polyethylene glycoL 3350 [Miralax] 17 gm PO DAILY PRN #7 packet PRN Reason: Pain Ondansetron Odt [Zofran Odt] 4 mg PO Q8HR PRN #10 tab PRN Reason: Nausea Is patient prescribed a controlled substance at d/c from ED?: No Referrals: Alfonso Hernandez MD [Primary Care Provider] - 1-2 days
[2023-06-01] MEDS ORDERED: GLYCERIN ADULT SUPPOSITORY 1 EACH RECTAL STA (18:38)
[2023-06-01 18:52] VITALS: BP 106/57; PULSE 62; TEMP 98.2
== END 2023-06-01 18:52 | disposition home or self-care (01) ==
LOC: EC 14:00
DX: K59.00 Constipation, unspecified (principal); I11.0 Hypertensive heart disease with heart failure; I50.9 Heart failure, unspecified; E11.9 Type 2 diabetes mellitus without complications; E78.5 Hyperlipidemia, unspecified; I25.2 Old myocardial infarction; F41.9 Anxiety disorder, unspecified; F31.9 Bipolar disorder, unspecified; F90.9 Attention-deficit hyperactivity disorder, unspecified type; Z79.82 Long term (current) use of aspirin; Z79.84 Long term (current) use of oral hypoglycemic drugs; Z79.899 Other long term (current) drug therapy; Z88.6 Allergy status to analgesic agent
CPT/HCPCS: 36415; 80053; 83605; 83690; 85025; 81001; 74018; 76705; 74176; 99285; 96374; 96375 ×2; 96376; 96361 ×3; J2405; J1885; J1170

== ENCOUNTER 2023-10-18 16:45 | Emergency (ER) | payer MEDICARE, OTHER ==
--- NOTE | 2023-10-18 16:55 | ED ---
Chest Pain HPI - General Source: patient, RN notes reviewed Mode of arrival: ambulatory Limitations: no limitations <Nevin Monterroso - Last Filed: 10/18/23 16:54> - History of Present Illness MD Complaint: chest pain, other -: hour(s) Onset: during rest Pain Location: left chest Pain Radiation: LUE Severity: moderate Severity scale (1-10): 5 Quality: sharp Consistency: constant Improves With: nothing Worsens With: nothing Anginal Symptoms: sense of impending doom Other Symptoms: palpitations Treatments Prior to Arrival: none <Bandar Tam - Last Filed: 10/29/23 21:06> - General Chief Complaint: Chest Pain Stated Complaint: chest pain Time Seen by Provider: 10/18/23 16:54 - History of Present Illness Initial Comments: Patient is 78-year-old female presented ER chief complaint chest pain. Patient has a past couple days she's been having epigastric and back pain. Patient denies any shortness of breath. Patient is unsure if it is her gallbladder acting up. Patient denies any fevers, chills, night sweats. (Nevin Monterroso) This is a 78 female to the emergency room today for evaluation of chest pain epigastric abdominal pain concern for gallbladder disease. Positive cough congestion no shortness of breath no travel show sick contacts no fevers (Bandar Tam) - Related Data Home Medications Medication Instructions Recorded Confirmed Furosemide [Lasix] 20 mg PO BID 01/09/16 03/06/20 Simvastatin [Zocor] 40 mg PO HS 07/03/16 03/06/20 oxyCODONE-APAP 10-325MG [Percocet 1 tab PO QID PRN 07/03/16 03/06/20 10-325 mg] Aspirin EC [Ecotrin Low Dose] 81 mg PO DAILY 08/09/17 03/06/20 metFORMIN HCL [Glucophage] 500 mg PO AC-TID 08/09/17 03/06/20 Celecoxib [CeleBREX] 200 mg PO DAILY 01/24/19 03/06/20 Citalopram Hydrobromide [CeleXA] 40 mg PO DAILY 01/24/19 03/06/20 Dextroamphetamine/Amphetamine 20 mg PO BID 01/24/19 03/06/20 [Adderall] Folic Acid 1 mg PO DAILY 01/24/19 03/06/20 Albuterol Sulfate [Ventolin HFA] 2 puff INHALATION RT-Q4H PRN 11/13/19 03/06/20 Budesonide/Formoterol Fumarate 2 puff INHALATION RT-BID 11/13/19 03/06/20 [Symbicort 80-4.5 Mcg Inhaler] Nitroglycerin Sl Tabs [Nitrostat] 0.4 mg SUBLINGUAL Q5M PRN 11/13/19 03/06/20 Cholecalciferol [Vitamin D3 (25 1,000 unit PO DAILY 03/06/20 03/06/20 Mcg = 1000 Iu)] Fluticasone Nasal [place] [Flonase 2 spr EA NOSTRIL DAILY 03/06/20 03/06/20 Nasal [place]] Multivitamins, Thera [Multivitamin 1 tab PO DAILY 03/06/20 03/06/20 (formulary)] Thiamine [Vitamin B-1] 100 mg PO DAILY 03/06/20 03/06/20 amLODIPine [Norvasc] 5 mg PO DAILY 03/06/20 03/06/20 hydroCHLOROthiazide 25 mg PO DAILY 03/06/20 03/06/20 Previous Rx's Medication Instructions Recorded Pantoprazole [Protonix] 40 mg PO AC-BID #60 tablet. 09/13/17 Metoprolol Succinate (ER) [Toprol 25 mg PO DAILY #30 tab.er.24h 11/15/19 XL] methylPREDNISolone Dose Pack 24 mg PO DAILY #1 pack 03/08/20 [Medrol Dose Pack] oxyCODONE-APAP 10-325MG [Percocet 1 tab PO Q6HR PRN 3 Days #12 tab 03/08/20 10-325 mg] HYDROcodone/APAP 10-325MG [[place] 1 tab PO Q6HR PRN 3 Days #12 tab 05/29/23 10-325] Docusate [Colace] 100 mg PO DAILY #14 capsule 06/01/23 Ondansetron Odt [Zofran Odt] 4 mg PO Q8HR PRN #10 tab 06/01/23 polyethylene glycoL 3350 [Miralax] 17 gm PO DAILY PRN #7 packet 06/01/23 Allergies Allergy/AdvReac Type Severity Reaction Status Date / Time atorvastatin calcium AdvReac MUSCLE Verified 10/18/23 16:51 [From Lipitor] ACHES Review of Systems ROS Other: All systems not noted in ROS Statement are negative. <Nevin Monterroso - Last Filed: 10/18/23 16:54> ROS Other: All systems not noted in ROS Statement are negative. <Bandar Tam - Last Filed: 10/29/23 21:06> ROS Statement: Those systems with pertinent positive or pertinent negative responses have been documented in the HPI. EKG Findings - EKG Comments: EKG Findings:: EKG is positive for sinus 76 CT 189 QRS 97 QTC 418 - EKG Results: EKG: interpreted by ERMD <Bandar Tam - Last Filed: 10/29/23 21:06> Past Medical History Past Medical History: Heart Failure, Diabetes Mellitus, Hyperlipidemia, Hypertension, Myocardial Infarction (LA) Additional Past Medical History / Comment(s): Had mental breakdown several years ago and admitted for treatment. Pre-diabetic, patient has new-onset tremors with illness. ADHD Last Myocardial Infarction Date:: 01/16/14 History of Any Multi-Drug Resistant Organisms: None Reported Past Surgical History: Section, Heart Catheterization With Stent, Orthopedic Surgery Additional Past Surgical History / Comment(s): Cervical fusion, shoulder repair on the right Past Anesthesia/Blood Transfusion Reactions: No Reported Reaction Date of Last Stent Placement:: 2013 Past Psychological History: ADD/ADHD, Anxiety, Bipolar, Depression Smoking Status: Never smoker Past Alcohol Use History: None Reported Past Drug Use History: None Reported - Past Family History Mother Family Medical History: Dementia Additional Family Medical History / Comment(s): mac degeneration of the eyes. states mother at the age of 94 Father Family Medical History: Cancer Additional Family Medical History / Comment(s): Stomach CA Sister(s) Additional Family Medical History / Comment(s): mental illness - suicide <Nevin Monterroso - Last Filed: 10/18/23 16:54> General Exam Limitations: no limitations <Nevin Monterroso - Last Filed: 10/18/23 16:54> General appearance: alert, in no apparent distress Head exam: Present: atraumatic, normocephalic, normal inspection Eye exam: Present: normal appearance, PERRL, EOMI. Absent: scleral icterus, conjunctival injection, periorbital swelling ENT exam: Present: normal exam, mucous membranes moist Neck exam: Present: normal inspection. Absent: tenderness, meningismus, lymphadenopathy Respiratory exam: Present: normal lung sounds bilaterally. Absent: respiratory distress, wheezes, rales, rhonchi, stridor Cardiovascular Exam: Present: regular rate, normal rhythm, normal heart sounds. Absent: systolic murmur, diastolic murmur, rubs, gallop, clicks GI/Abdominal exam: Present: soft, normal bowel sounds. Absent: distended, tenderness, guarding, rebound, rigid Extremities exam: Present: normal inspection, full ROM, normal capillary refill. Absent: tenderness, pedal edema, joint swelling, calf tenderness Back exam: Present: normal inspection Neurological exam: Present: alert, oriented X3, CN II-XII intact Psychiatric exam: Present: normal affect, normal mood Skin exam: Present: warm, dry, intact, normal color. Absent: rash <Bandar Tam - Last Filed: 10/29/23 21:06> - General Exam Comments Initial Comments: Visual Physical Exam Vital signs reviewed General: Well-appearing, nontoxic, no acute distress. Head: Normocephalic, atraumatic Eyes: PERRLA, EOMI ENT: Airway patent Chest: Nonlabored breathing Skin: No visual rash, normal skin tone Neuro: Alert and oriented 3 Musculoskeletal: No gross abnormalities (Nevin Monterroso) Course <Bandar Tam - Last Filed: 10/29/23 21:06> Vital Signs 10/18/23 10/18/23 10/19/23 16:47 22:30 02:06 Temperature 98.2 F 98.0 F 98.0 F Pulse Rate 89 82 89 Respiratory 16 18 18 Rate Blood Pressure 181/85 185/92 158/84 O2 Sat by Pulse 97 98 96 Oximetry - Reevaluation(s) Reevaluation #1: 10/19/23 01:31 Medical records reviewed (Bandar Tam) Reevaluation #2: 10/19/23 01:32 Patient still feels unwell with chest tightness (Bandar Tam) Reevaluation #3: 10/19/23 01:32 Patient for results and questions answered (Bandar Tam) Reevaluation #4: 10/19/23 01:32 Was pt. sent in by a medical professional or institution (DAYNA Vaughn, [employer], urgent care, hospital, or care home...) When possible be specific @ -no Did you speak to anyone other than the patient for history (EMS, parent, family, police, friend...)? What history was obtained from this source @ -no Did you review nursing and triage notes (agree or disagree)? Why? @ -agree Are old charts reviewed (outside hosp., previous admission, EMS record, old EKG, old radiological studies, urgent care reports/EKG's, care home records)? Report findings @ -yes Differential Diagnosis (chest pain, altered mental status, abdominal pain women, abdominal pain men, vaginal bleeding, weakness, fever, dyspnea, syncope, headache, dizziness, GI bleed, back pain, seizure, CVA, palpatations, mental health, musculoskeletal)? @ -prior EKG interpreted by me (3pts min.). @ -yes X-rays interpreted by me (1pt min.). @ -yes here for acute disease CT interpreted by me (1pt min.). @ -no U/S interpreted by me (1pt. min.). @ -no What testing was considered but not performed or refused? (CT, X-rays, U/S, labs)? Why? @ -none What meds were considered but not given or refused? Why? @ -none Did you discuss the management of the patient with other professionals (professionals i.e. DAYNA Vaughn, [employer], lab, RT, psych nurse, psychotherapist social worker, new account interviewer, teacher, investment officer, spring encaser)? Give summary @ -no Was smoking cessation discussed for >3mins.? @ -no Was critical care preformed (if so, how long)? @ -no Were there social determinants of health that impacted care today? How? (Homelessness, low income, unemployed, alcoholism, drug addiction, transportation, low edu. Level, literacy, decrease access to med. care, detention, rehab)? @ -none Was there de-escalation of care discussed even if they declined (Discuss DNR or withdrawal of care, Hospice)? DNR status @ -no What co-morbidities impacted this encounter? (DM, HTN, Smoking, COPD, CAD, Cancer, CVA, ARF, Chemo, Hep., AIDS, mental health diagnosis, sleep apnea, morbid obesity)? @ -none Was patient admitted / discharged? Hospital course, mention meds given and route, prescriptions, significant lab abnormalities, going to OR and other pertinent info. @ - 78 female to the emergency department for nonspecific chest and abdominal pain. This time patient can be discharged home Discharge Undiagnosed new problem with uncertain prognosis? @ -no Drug Therapy requiring intensive monitoring for toxicity (Heparin, Nitro, Insulin, Cardizem)? @ -no Were any procedures done? @ -no Diagnosis/symptom? @ -Chest pain, abdominal pain Acute, or Chronic, or Acute on Chronic? @ -Acute Uncomplicated (without systemic symptoms) or Complicated (systemic symptoms)? @ -Complicated Side effects of treatment? @ -no Exacerbation, Progression, or Severe Exacerbation? @ -exacerbation Poses a threat to life or bodily function? How? (Chest pain, [place], [place], pneumonia, PE, COPD, DKA, ARF, appy, cholecystitis, CVA, Diverticulitis, Homicidal, Suicidal, threat to staff... and all critical care pts) @ -yes extremes of age (Bandar Tam) Reevaluation #5: Differential Chest Pain: Stable Angina, Unstable Angina, STEMI, NSTEMI Aortic Dissection, Pneumothorax, Musculoskeletal, Esophageal Spasm GERD, Cholecystitis, Pancreatitis, Zoster, this is not meant to be an all-inclusive list. Differential Abdominal Pain Women: Appendicitis, Cholecystitis, diverticulosis, ischemic bowel, pancreatitis, hepatitis, UTI, gastroenteritis, AAA, incarcerated hernia, bowel obstruction, constipation, inflammatory bowel, hepatitis, peptic ulcer disease, splenic infarction, perforated viscus, vulvitis, ovarian torsion, PID, kidney stone, placenta abruption, this is not meant to be an all-inclusive list (Bandar Tam) Chest Pain MDM <Nevin Monterroso - Last Filed: 10/18/23 16:54> <Bandar Tam - Last Filed: 10/29/23 21:06> - MDM I performed the quick note portion of the exam. Electronically signed by SARA Mtz Deann) 78 female to the emergency department for nonspecific chest and abdominal pain. This time patient can be discharged home (Bandar Tam) Disposition <Nevin Monterroso - Last Filed: 10/18/23 16:54> Is patient prescribed a controlled substance at d/c from ED?: No Time of Disposition: 01:30 <Bandar Tam - Last Filed: 10/29/23 21:06> Clinical Impression: Chest pain, Atypical chest pain, Abdominal pain Disposition: HOME SELF-CARE Condition: Good Instructions (If sedation given, give patient instructions): Chest Pain (ED), Abdominal Pain (ED) Referrals: Alfonso Hernandez MD [Primary Care Provider] - 1-2 days
--- NOTE | 2023-10-18 18:00 | XR ---
EXAMINATION TYPE: XR chest 2V DATE OF EXAM: 10/18/2023 5:45 PM CLINICAL INDICATION:Female, 78 years old with history of angina; [facility] COMPARISON: Chest radiographs from 03/06/2020. TECHNIQUE: XR chest 2V Frontal and lateral views of the chest. FINDINGS: Lungs/Pleura: There is no evidence of pleural effusion, focal consolidation, or pneumothorax. Pulmonary vascularity: Unremarkable. Heart/mediastinum: Cardiomediastinal silhouette is unremarkable. Musculoskeletal: No acute osseous pathology. There is fixation hardware in the lower cervical spine. IMPRESSION: 1. No acute cardiopulmonary disease process. 2. COPD changes.
[2023-10-18 19:41] LABS: HGB 12.5 gm/dL (11.4-16.0); MCH 29.8 pg (25.0-35.0); MCV 90.3 fL (80.0-100.0); Mean Platelet Volume 10.9; Platelet Count 188 k/uL (150-450); RBC 4.21 m/uL (3.80-5.40); RDW 13.5 % (11.5-15.5); WBC 10.5 k/uL (3.8-10.6)
[2023-10-18 19:55] LABS: ALT 14 U/L (4-34); AST 23 U/L (14-36); African American GFR (CKD) 48 (>60 ml/min/1.73 sqM); Albumin 4.3 g/dL (3.5-5.0); Alkaline Phosphatase 105 U/L (38-126); Amylase 58 U/L (30-110); Anion Gap 9 mmol/L; Blood Urea Nitrogen 26 mg/dL (7-17); Calcium 9.8 mg/dL (8.4-10.2); Carbon Dioxide 28 mmol/L (22-30); Chloride 103 mmol/L (98-107); Glucose 97 mg/dL (74-99); Lipase 137 U/L (23-300); Non-African American GFR(CKD) 42 (>60 ml/min/1.73 sqM); Potassium 4.5 mmol/L (3.5-5.1); Sodium 140 mmol/L (137-145); Total Bilirubin 0.5 mg/dL (0.2-1.3); Total Protein 7.5 g/dL (6.3-8.2)
[2023-10-18 22:32] VITALS: RESP 18; TEMP 98
[2023-10-19] MEDS ORDERED: ETODOLAC 400 MG TAB PO ONE (01:45)
[2023-10-19] MEDS ORDERED: PROCHLORPERAZINE 10 MG TAB PO ONE (01:45)
[2023-10-19 02:11] VITALS: BP 158/84; PULSE 89
== END 2023-10-19 02:06 | disposition home or self-care (01) ==
LOC: EC 16:45
DX: R07.89 Other chest pain (principal); R10.9 Unspecified abdominal pain; J44.9 Chronic obstructive pulmonary disease, unspecified; I11.0 Hypertensive heart disease with heart failure; I50.9 Heart failure, unspecified; E11.9 Type 2 diabetes mellitus without complications; E78.5 Hyperlipidemia, unspecified; I25.2 Old myocardial infarction; F41.9 Anxiety disorder, unspecified; F31.9 Bipolar disorder, unspecified; Z79.82 Long term (current) use of aspirin; Z79.84 Long term (current) use of oral hypoglycemic drugs; Z79.899 Other long term (current) drug therapy; Z88.8 Allergy status to other drugs, medicaments and biological substances; F90.9 Attention-deficit hyperactivity disorder, unspecified type
CPT/HCPCS: 36415; 93005; 80053; 82150; 83690; 84484; 85027; 71046; 99285; S0183

== ENCOUNTER → 2024-06-28 | Outpatient (CLI) | payer MEDICARE, OTHER ==
--- NOTE | 2024-07-02 09:16 | MM ---
Reason for Exam: Screening (asymptomatic). Patient History: Menarche at age 9. First Full-Term at age 18. Postmenopausal. Patient has history of breast feeding. 02/28/1984, Benign Excisional Biopsy on the right side. Risk Values: Sandrita 5 year model risk: 1.6%. NCI Lifetime model risk: 3.1%. Prior Study Comparison: No prior studies available for comparison. Tissue Density: There are scattered areas of fibroglandular density. Findings: Analyzed By CAD. The pattern is symmetrical. Scattered benign vascular and punctate calcifications are present bilaterally. No suspicious groups of microcalcifications, spiculated or lobular masses, architectural distortion or other secondary signs of malignancy are mammographically apparent. Overall Assessment: Benign, BI-RAD 2 Management: Screening Mammogram of both breasts in 1 year. A negative mammogram report should not preclude additional follow up of suspicious palpable abnormalities. Patient should continue monthly self breast exam. A clinical breast exam by your physician is recommended on an annual basis and results should be correlated with mammographic findings. Note on Sandrita scores and lifetime risk: 1. A Sandrita score greater than 3% is considered moderate risk. If this is the case, consider specialist referral to assess eligibility for a risk reducing agent. 2. If overall lifetime risk for the development of breast cancer is 20% or higher, the patient may qualify for future screening with alternating mammogram and breast MRI. [facility], , 07/02/2024 9:13 AM. Electronically signed and approved by: Ralph Jean-Baptiste D.O. Radiologis
== END | disposition home or self-care (01) ==
LOC: RADMAMWWP 11:39
PROVIDERS: ATTEND Family Medicine
CPT/HCPCS: 77063; 77067

== ENCOUNTER 2024-07-08 08:17 | Observation (INO) | payer MEDICARE, OTHER ==
--- NOTE | 2024-07-08 08:39 | ED ---
Chest Pain HPI - General Chief Complaint: Chest Pain Stated Complaint: chest pain Time Seen by Provider: 07/08/24 08:30 Source: patient, EMS, RN notes reviewed, old records reviewed Mode of arrival: EMS Limitations: no limitations - History of Present Illness Initial Comments: This 78-year-old female to the ER for evaluation of chest pain and anxiety. Patient admits to significant increase in stress in her recent life. Her is in the hospital family admitted to the hospital and she is also been in the hospital before recently coming in with chest pain patient has history of stent MD Complaint: chest pain -: hour(s) Onset: during rest, during exertion, awoke with symptoms Pain Location: left chest Pain Radiation: none Severity: moderate Severity scale (1-10): 4 Quality: tightness, heaviness Consistency: constant, intermittent Improves With: nothing Worsens With: nothing - Related Data Home Medications Medication Instructions Recorded Confirmed Aspirin EC [Ecotrin Low Dose] 81 mg PO DAILY 08/09/17 07/08/24 Albuterol Sulfate [Ventolin HFA] 2 puff INHALATION RT-Q4H PRN 11/13/19 07/08/24 Fluticasone Nasal [place] [Flonase 1 spr EA NOSTRIL DAILY 03/06/20 07/08/24 Nasal [place]] Multivitamins, Thera [Multivitamin 1 tab PO DAILY 03/06/20 07/08/24 (formulary)] amLODIPine [Norvasc] 5 mg PO DAILY 03/06/20 07/08/24 Dextroamphetamine/Amphetamine 30 mg PO DAILY 01/18/24 07/08/24 [Adderall Xr 30 mg Capsule] Docusate [Colace] 100 mg PO BID 01/18/24 07/08/24 Ergocalciferol (Vitamin D2) 1,250 mcg PO QMONTHLY 01/18/24 07/08/24 [Drisdol (50,000 Iu)] Hydrocortisone Cream 1 applic TOPICAL BID PRN 01/18/24 07/08/24 [Hydrocortisone 2.5% Cream] Ibuprofen [Motrin] 600 mg PO Q6HR PRN 01/18/24 07/08/24 Pantoprazole [Protonix] 40 mg PO BID 01/18/24 07/08/24 hydrALAZINE HCL 10 mg PO TID 01/18/24 07/08/24 Budesonide/Formoterol Fumarate 2 puff INHALATION RT-BID 07/08/24 07/08/24 [Breyna 160-4.5 Mcg Inhaler] Folic Acid 1 mg PO DAILY 07/08/24 07/08/24 Metoprolol Succinate [Toprol XL] 100 mg PO DAILY 07/08/24 07/08/24 Nitroglycerin Sl Tabs [Nitrostat] 0.4 mg PO Q5M PRN 07/08/24 07/08/24 Previous Rx's Medication Instructions Recorded oxyCODONE-APAP 10-325MG [Percocet 1 tab PO Q6HR PRN 3 Days #12 tab 03/08/20 10-325 mg] Losartan-Hctz 50-12.5 mg [Hyzaar 1 each PO DAILY #10 tab 07/11/24 50-12.5] Allergies Allergy/AdvReac Type Severity Reaction Status Date / Time atorvastatin calcium AdvReac MUSCLE Verified 07/08/24 14:59 [From Lipitor] ACHES IN LEGS Review of Systems ROS Statement: Those systems with pertinent positive or pertinent negative responses have been documented in the HPI. ROS Other: All systems not noted in ROS Statement are negative. EKG Findings - EKG Comments: EKG Findings:: EKG is sinus 70 OK 161 QRS 98 QTc 401 - EKG Results: EKG: interpreted by SHREYA Past Medical History Past Medical History: Heart Failure, Diabetes Mellitus, Hyperlipidemia, Hypertension, Myocardial Infarction ([place]) Additional Past Medical History / Comment(s): Had mental breakdown several years ago and admitted for treatment. Pre-diabetic, patient has new-onset tremors with illness. ADHD Last Myocardial Infarction Date:: 01/16/14 History of Any Multi-Drug Resistant Organisms: None Reported Past Surgical History: Section, Heart Catheterization With Stent, Orthopedic Surgery Additional Past Surgical History / Comment(s): Cervical fusion, shoulder repair on the right Past Anesthesia/Blood Transfusion Reactions: No Reported Reaction Date of Last Stent Placement:: 2013 Past Psychological History: ADD/ADHD, Anxiety, Bipolar, Depression Smoking Status: Never smoker Past Alcohol Use History: None Reported Past Drug Use History: None Reported - Past Family History Mother Family Medical History: Dementia Additional Family Medical History / Comment(s): mac degeneration of the eyes. states mother at the age of 94 Father Family Medical History: Cancer Additional Family Medical History / Comment(s): Stomach CA Sister(s) Additional Family Medical History / Comment(s): mental illness - suicide General Exam Limitations: no limitations General appearance: alert, in no apparent distress Head exam: Present: atraumatic, normocephalic, normal inspection Eye exam: Present: normal appearance, PERRL, EOMI. Absent: scleral icterus, conjunctival injection, periorbital swelling ENT exam: Present: normal exam, mucous membranes moist Neck exam: Present: normal inspection. Absent: tenderness, meningismus, lymphadenopathy Respiratory exam: Present: normal lung sounds bilaterally. Absent: respiratory distress, wheezes, rales, rhonchi, stridor Cardiovascular Exam: Present: regular rate, normal rhythm, normal heart sounds. Absent: systolic murmur, diastolic murmur, rubs, gallop, clicks GI/Abdominal exam: Present: soft, normal bowel sounds. Absent: distended, tenderness, guarding, rebound, rigid Extremities exam: Present: normal inspection, full ROM, normal capillary refill. Absent: tenderness, pedal edema, joint swelling, calf tenderness Back exam: Present: normal inspection Neurological exam: Present: alert, oriented X3, CN II-XII intact Psychiatric exam: Present: normal affect, normal mood Skin exam: Present: warm, dry, intact, normal color. Absent: rash Course Vital Signs 07/08/24 07/08/24 07/08/24 08:26 10:14 11:11 Temperature 97.9 F Pulse Rate 83 73 75 Respiratory 18 17 18 Rate Blood Pressure 189/90 189/90 167/80 O2 Sat by Pulse 98 96 98 Oximetry 07/08/24 07/08/24 07/08/24 11:35 13:16 17:15 Temperature Pulse Rate 72 66 75 Respiratory 18 16 17 Rate Blood Pressure 156/80 151/77 174/82 O2 Sat by Pulse 97 98 98 Oximetry 07/08/24 07/08/24 07/08/24 18:00 21:31 23:32 Temperature Pulse Rate 77 80 Respiratory 18 18 Rate Blood Pressure 156/83 186/82 213/83 O2 Sat by Pulse 97 96 Oximetry 07/09/24 07/09/24 00:28 00:58 Temperature Pulse Rate 90 Respiratory 18 Rate Blood Pressure 190/88 142/63 O2 Sat by Pulse 99 Oximetry - Reevaluation(s) Reevaluation #1: 07/08/24 13:00 Medical records reviewed Reevaluation #2: 07/08/24 13:00 Patient symptoms unchanged Reevaluation #3: 07/08/24 13:00 Patient informed of results and questions answered Reevaluation #4: Was pt. sent in by a medical professional or institution (DAYNA Vaughn, PUNCH MACHINE OPERATOR, urgent care, hospital, or intermediate...) When possible be specific @ -no Did you speak to anyone other than the patient for history (EMS, parent, family, police, friend...)? What history was obtained from this source @ -no Did you review nursing and triage notes (agree or disagree)? Why? @ -agree Are old charts reviewed (outside hosp., previous admission, EMS record, old EKG, old radiological studies, urgent care reports/EKG's, intermediate records)? Report findings @ -yes Differential Diagnosis (chest pain, altered mental status, abdominal pain women, abdominal pain men, vaginal bleeding, weakness, fever, dyspnea, syncope, headache, dizziness, GI bleed, back pain, seizure, CVA, palpatations, mental health, musculoskeletal)? @ -prior EKG interpreted by me (3pts min.). @ -yes X-rays interpreted by me (1pt min.). @ -yes negative for acute disease CT interpreted by me (1pt min.). @ -no U/S interpreted by me (1pt. min.). @ -no What testing was considered but not performed or refused? (CT, X-rays, U/S, labs)? Why? @ -none What meds were considered but not given or refused? Why? @ -none Did you discuss the management of the patient with other professionals (professionals i.e. DAYNA Vaughn, PUNCH MACHINE OPERATOR, lab, RT, psych nurse, social media sr strategy manager, recycling program manager, teacher, inspectors and regulatory officers, pillowcase cutter)? Give summary @ -no Was smoking cessation discussed for >3mins.? @ -no Was critical care preformed (if so, how long)? @ -yes31 Were there social determinants of health that impacted care today? How? (Homelessness, low income, unemployed, alcoholism, drug addiction, transportation, low edu. Level, literacy, decrease access to med. care, nursing home, rehab)? @ -none Was there de-escalation of care discussed even if they declined (Discuss DNR or withdrawal of care, Hospice)? DNR status @ -no What co-morbidities impacted this encounter? (DM, HTN, Smoking, COPD, CAD, Cancer, CVA, ARF, Chemo, Hep., AIDS, mental health diagnosis, sleep apnea, morbid obesity)? @ -none Was patient admitted / discharged? Hospital course, mention meds given and route, prescriptions, significant lab abnormalities, going to OR and other pertinent info. @ - 78 female to the ER for evaluation of chest pain will admit for chest pain observation but likely could be due to his underlying anxiety and stress Admitted Undiagnosed new problem with uncertain prognosis? @ -no Drug Therapy requiring intensive monitoring for toxicity (Heparin, Nitro, Insulin, Cardizem)? @ -no Were any procedures done? @ -no Diagnosis/symptom? @ - Acute, or Chronic, or Acute on Chronic? @ -Acute Uncomplicated (without systemic symptoms) or Complicated (systemic symptoms)? @ -Complicated Side effects of treatment? @ -no Exacerbation, Progression, or Severe Exacerbation? @ -exacerbation Poses a threat to life or bodily function? How? (Chest pain, [place], AR, pneumonia, PE, COPD, DKA, ARF, appy, cholecystitis, CVA, Diverticulitis, Homicidal, Suicidal, threat to staff... and all critical care pts) @ -yes Reevaluation #5: Differential Chest Pain: Stable Angina, Unstable Angina, STEMI, NSTEMI Aortic Dissection, Pneumothorax, Musculoskeletal, Esophageal Spasm GERD, Cholecystitis, Pancreatitis, Zoster, this is not meant to be an all-inclusive list. - Consultations Consultation #1: Spoke with admitting who agrees to admit this patient Chest Pain MDM - MDM 78 female to the ER for evaluation of chest pain will admit for chest pain observation but likely could be due to his underlying anxiety and stress Critical Care Time Critical Care Time: Yes Total Critical Care Time: 31 Disposition Clinical Impression: Hypertension, CAD (coronary artery disease), Unstable angina pectoris, Chest pain Disposition: ADMITTED IP TO THIS HOSP Condition: Serious Is patient prescribed a controlled substance at d/c from ED?: No Time of Disposition: 13:00
[2024-07-08 08:58] LABS: Basophils % (A) 0 %; Eosinophils # (A) 0.2 k/uL (0-0.7); Eosinophils % (A) 1 %; HGB 12.5 gm/dL (11.4-16.0); Hypochromasia Slight; Lymphocytes # (A) 1.4 k/uL (1.0-4.8); Lymphocytes % (A) 12 %; MCH 29.1 pg (25.0-35.0); MCHC 31.2 g/dL (31.0-37.0); MCV 93.4 fL (80.0-100.0); Mean Platelet Volume 10.5; Monocytes # (A) 0.8 k/uL (0-1.0); Monocytes % (A) 7 %; Neutrophils # (A) 9.7 k/uL (1.3-7.7); Neutrophils % (A) 79 %; Platelet Count 199 k/uL (150-450); RBC 4.28 m/uL (3.80-5.40); RDW 13.7 % (11.5-15.5); WBC 12.3 k/uL (3.8-10.6)
--- NOTE | 2024-07-08 09:21 | XR ---
EXAMINATION TYPE: XR chest 1V portable DATE OF EXAM: 07/08/2024 COMPARISON: 01/24/2024 INDICATION: Chest pain TECHNIQUE: Single frontal view of the chest is obtained. FINDINGS: The heart size is normal. The pulmonary vasculature is normal. The lungs are clear. IMPRESSION: 1. No acute pulmonary process. [facility], , 07/08/2024 9:18 AM
[2024-07-08 09:28] LABS: Partial Thromboplastin Time 20.2 sec (22.0-30.0); Prothrombin Time 10.6 sec (10.0-12.5)
[2024-07-08 09:50] LABS: ALT 163 U/L (4-34); AST 281 U/L (14-36); African American GFR (CKD) 48 (>60 ml/min/1.73 sqM); Albumin 3.8 g/dL (3.5-5.0); Alkaline Phosphatase 95 U/L (38-126); Anion Gap 1 mmol/L; Blood Urea Nitrogen 37 mg/dL (7-17); Calcium 8.9 mg/dL (8.4-10.2); Carbon Dioxide 27 mmol/L (22-30); Chloride 109 mmol/L (98-107); Glucose 115 mg/dL (74-99); Lipase 406 U/L (23-300); Magnesium 2.1 mg/dL (1.6-2.3); Non-African American GFR(CKD) 42 (>60 ml/min/1.73 sqM); Potassium 4.7 mmol/L (3.5-5.1); Sodium 137 mmol/L (137-145); Total Bilirubin 0.7 mg/dL (0.2-1.3); Total Protein 6.3 g/dL (6.3-8.2)
[2024-07-08 09:57] LABS: NT-Pro-B-Type Natriuretic Pept 355 pg/mL
[2024-07-08] MEDS: LORazepam 2 MG/ML INJ IV STA (10:39)
[2024-07-08] MEDS: LABETALOL 5 MG/ML VIAL MDV IVP STA ×2 (11:17→11:18)
[2024-07-08] MEDS ORDERED: ONDANSETRON 4 MG/2 ML VIAL IVP PRN (12:57)
[2024-07-08] MEDS ORDERED: NALOXONE 0.4 MG/ML 1 ML VIAL IV PRN (12:57)
[2024-07-09] MEDS: hydrALAZINE HCL 20 MG/ML 1 ML VIAL IVP PRN (00:32)
[2024-07-09] MEDS: amLODIPine 5 MG TAB PO SCH (09:17)
[2024-07-09] MEDS: ASPIRIN 81 MG PO SCH (09:17)
[2024-07-09] MEDS: PANTOPRAZOLE 40 MG/10 ML VIAL IV SCH (09:17)
[2024-07-09 09:18] LABS: ALT 474 U/L (8-44); AST 306 U/L (13-35); Albumin/Globulin Ratio 1.82 Ratio (1.60-3.17); Alkaline Phosphatase 123 U/L (41-126); BUN/Creat Ratio 25.17 Ratio (12.00-20.00); Blood Urea Nitrogen 30.2 mg/dL (9.0-27.0); Carbon Dioxide 24.9 mmol/L (21.6-31.8); Chloride 104 mmol/L (96-109); Globulin 2.2 g/dL (1.6-3.3); Glucose 126 mg/dL (70-110); Magnesium 2.2 mg/dL (1.5-2.4); Phosphorus 3.7 mg/dL (2.4-5.1); Potassium 4.4 mmol/L (3.5-5.5); Sodium 140 mmol/L (135-145); Total Bilirubin 0.6 mg/dL (0.3-1.2); Total Protein 6.2 g/dL (6.2-8.2)
[2024-07-09 09:23] LABS: Basophils # (A) 0.04 X 10*3/uL (0.00-0.10); Basophils % (A) 0.4 %; Eosinophils # (A) 0.18 X 10*3/uL (0.04-0.35); Eosinophils % (A) 1.9 %; HCT 39.6 % (37.2-46.3); HGB 12.8 g/dL (12.0-15.0); Lymphocytes % (A) 14.9 %; MCH 29.6 pg (27.0-32.0); MCHC 32.3 g/dL (32.0-37.0); MCV 91.5 FL (80.0-97.0); Mean Platelet Volume 14.3 FL (9.5-12.2); Monocytes # (A) 0.88 X 10*3/uL (0.20-1.00); Monocytes % (A) 9.4 %; NRBC Per 100 WBC 0 X 10*3/uL (0.00-0.01); Neutrophils # (A) 6.82 X 10*3/uL (1.80-7.70); Neutrophils % (A) 72.7 %; Platelet Count 174 X 10*3/uL (140-440); RBC 4.33 X 10*6/uL (4.10-5.20); RDW 14.4 % (11.5-14.5); WBC 9.39 X 10*3/uL (4.50-10.00)
--- NOTE | 2024-07-09 10:22 | P.CRDCN ---
History of Present Illness History of present illness: HISTORY OF PRESENT ILLNESS: This is a 78-year-old female with a past medical history significant for coronary artery disease with previous stenting, aortic regurgitation, hypertension, and cholecystectomy. Patient follows in the office with Dr. Arce. We have been asked to see the patient in consultation for chest pain. Patient examined at the bedside. Patient states yesterday she began having chest discomfort. When talking to the patient she points to her epigastric region when asked to describe where the pain was. She states she was just standing talking to somebody when the pain occurred. She initially thought her it may be anxiety related. She denied any radiation of the pain. She describes the pain as an aching type sensation. She states that she was short of breath, nauseated, and diaphoretic at that time. She states her symptoms yesterday felt different than her symptoms when she required stenting. She denies any further epigastric pain this morning. She does report chronic back pain. Patient's blood pressures were found to be elevated with a systolic between 1 80-200. The patient does report her blood pressures have been running higher than normal at home. DIAGNOSTICS: - EKG reveals sinus mechanism with no signs of acute ischemia - Chest xray negative for acute process - Laboratory data: WBC 9.39. Hemoglobin 12.8. Platelet count 174. Sodium 140. Potassium 4.4. BUN 30. Creatinine 1.2. AST 306. ALT 474. Troponin negative x 3. Lipase 406. proBNP 355. - Current home cardiac medications include aspirin 81 mg daily, amlodipine 5 mg daily, hydralazine 10 mg 3 times a day, and metoprolol succinate 100 mg daily - Most recent echocardiogram obtained in October 2023 revealed ejection fraction 55%, moderate AI, mild TR -Patient underwent Lexiscan stress test in October 2023 which was negative for ischemia - Cardiac catheterization history: February 2017 revealing mild in-stent restenosis within the LAD. No significant disease in dominant circumflex or nondominant RCA. REVIEW OF SYSTEMS: At the time of my exam: CONSTITUTIONAL: Denies fever or chills. HEENT: Denies blurred vision, vision changes, or eye pain. Denies hemoptysis CARDIOVASCULAR: Denies chest pain. Denies orthopnea. Denies PND. Denies palpitations RESPIRATORY: Denies shortness of breath. GASTROINTESTINAL: Denies abdominal pain. Denies nausea or vomiting. HEMATOLOGIC: Denies bleeding disorders. GENITOURINARY: Denies any blood in urine. SKIN: Denies pruitis. Denies rash. PHYSICAL EXAM: VITAL SIGNS: Reviewed. GENERAL: Well-developed in no acute distress. HEENT: Head is normocephalic. Pupils are equal, round. Sclerae anicteric. Mucous membranes of the mouth are moist. Neck supple. No JVD or thyromegaly LUNGS: Respirations even and unlabored. Lungs essentially clear to auscultation bilaterally. HEART: Regular rate and rhythm. S1 and S2 heard. Diastolic murmur noted. ABDOMEN: Soft. Nondistended. Nontender. EXTREMITIES: Normal range of motion. No clubbing or cyanosis. Peripheral pulses intact. No lower extremity edema NEUROLOGIC: Awake and alert. Oriented x 3. ASSESSMENT: Chest pain/epigastric pain, troponin negative x 3 Hypertensive urgency Transaminitis Elevated lipase History of cholecystectomy Coronary artery disease with previous stenting of the LAD Moderate aortic regurgitation Chronic back pain PLAN: An acute coronary event has been ruled out Obtain 2D echo to assess cardiac structure and function Obtain abdominal ultrasound. Further evaluation of elevated LFTs and lipase per primary medicine. Patient with uncontrolled blood pressures. Add losartanhydrochlorothiazide and increase hydralazine to 25 mg 3 times a day Continue to monitor blood pressure Further recommendations pending patient course Nurse practitioner note has been reviewed by physician. Signing provider agrees with the documented findings, assessment, and plan of care documented by FURNACE LINER as a scribe. Past Medical History Past Medical History: Heart Failure, Dementia, Hyperlipidemia, Hypertension, Myocardial Infarction ([place]) Additional Past Medical History / Comment(s): Had mental breakdown several years ago and admitted for treatment. Pre-diabetic, patient has new onset tremors with illness. ADHD Last Myocardial Infarction Date:: 01/16/14 History of Any Multi-Drug Resistant Organisms: None Reported Past Surgical History: Section, Heart Catheterization With Stent, Orthopedic Surgery Additional Past Surgical History / Comment(s): Cervical fusion, shoulder repair on the right Past Anesthesia/Blood Transfusion Reactions: No Reported Reaction Date of Last Stent Placement:: 2013 Past Psychological History: ADD/ADHD, Anxiety, Bipolar, Depression Smoking Status: Never smoker Past Alcohol Use History: None Reported Past Drug Use History: None Reported - Past Family History Mother Family Medical History: Dementia Additional Family Medical History / Comment(s): mac degeneration of the eyes. states mother at the age of 94 Father Family Medical History: Cancer Additional Family Medical History / Comment(s): Stomach CA Sister(s) Additional Family Medical History / Comment(s): mental illness - suicide Medications and Allergies Home Medications Medication Instructions Recorded Confirmed Type Aspirin EC [Ecotrin Low Dose] 81 mg PO DAILY 08/09/17 07/08/24 History Albuterol Sulfate [Ventolin HFA] 2 puff INHALATION RT-Q4H PRN 11/13/19 07/08/24 History Fluticasone Nasal [place] [Flonase 1 spr EA NOSTRIL DAILY 03/06/20 07/08/24 History Nasal [place]] Multivitamins, Thera [Multivitamin 1 tab PO DAILY 03/06/20 07/08/24 History (formulary)] amLODIPine [Norvasc] 5 mg PO DAILY 03/06/20 07/08/24 History oxyCODONE-APAP 10-325MG [Percocet 1 tab PO Q6HR PRN 3 Days #12 tab 03/08/20 07/08/24 Rx 10-325 mg] Dextroamphetamine/Amphetamine 30 mg PO DAILY 01/18/24 07/08/24 History [Adderall Xr 30 mg Capsule] Docusate [Colace] 100 mg PO BID 01/18/24 07/08/24 History Ergocalciferol (Vitamin D2) 1,250 mcg PO QMONTHLY 01/18/24 07/08/24 History [Drisdol (50,000 Iu)] Hydrocortisone Cream 1 applic TOPICAL BID PRN 01/18/24 07/08/24 History [Hydrocortisone 2.5% Cream] Ibuprofen [Motrin] 600 mg PO Q6HR PRN 01/18/24 07/08/24 History Pantoprazole [Protonix] 40 mg PO BID 01/18/24 07/08/24 History hydrALAZINE HCL 10 mg PO TID 01/18/24 07/08/24 History Budesonide/Formoterol Fumarate 2 puff INHALATION RT-BID 07/08/24 07/08/24 History [Breyna 160-4.5 Mcg Inhaler] Folic Acid 1 mg PO DAILY 07/08/24 07/08/24 History Metoprolol Succinate [Toprol XL] 100 mg PO DAILY 07/08/24 07/08/24 History Nitroglycerin Sl Tabs [Nitrostat] 0.4 mg PO Q5M PRN 07/08/24 07/08/24 History Allergies Allergy/AdvReac Type Severity Reaction Status Date / Time atorvastatin calcium AdvReac MUSCLE Verified 07/08/24 14:59 [From Lipitor] ACHES IN LEGS Physical Exam Vitals: Vital Signs Temp Pulse Pulse Pulse Resp BP BP 07/09/24 07:00 98.3 F 78 20 158/72 07/09/24 04:38 98.4 F 100 20 146/69 07/09/24 02:00 97.8 F 89 20 147/53 07/09/24 00:58 90 18 142/63 07/09/24 00:28 190/88 07/08/24 23:32 80 18 213/83 07/08/24 21:31 77 18 186/82 07/08/24 18:00 156/83 07/08/24 17:15 75 17 174/82 07/08/24 13:16 66 16 151/77 07/08/24 11:35 72 18 156/80 07/08/24 11:11 75 18 167/80 Pulse Ox 07/09/24 07:00 98 07/09/24 04:38 99 07/09/24 02:00 97 07/09/24 00:58 99 07/09/24 00:28 07/08/24 23:32 96 07/08/24 21:31 97 07/08/24 18:00 07/08/24 17:15 98 07/08/24 13:16 98 07/08/24 11:35 97 07/08/24 11:11 98 Intake and Output 07/08/24 07/09/24 07/09/24 22:59 06:59 14:59 Intake Total 0 Balance 0 Intake: Oral 0 Other: Voiding Method Toilet # Voids 1 Weight 87.09 kg Results 07/09/24 02:59 07/09/24 02:59 Cardiac Enzymes 07/08/24 07/08/24 07/09/24 Range/Units 14:28 18:05 02:59 AST 306 H (13-35) U/L Troponin I <0.012 <0.012 (0.000-0.034) ng/mL CBC 07/09/24 Range/Units 02:59 WBC 9.39 (4.50-10.00) X 10*3/uL RBC 4.33 (4.10-5.20) X 10*6/uL Hgb 12.8 (12.0-15.0) g/dL Hct 39.6 (37.2-46.3) % Plt Count 174 (140-440) X 10*3/uL Comprehensive Metabolic Panel 07/09/24 Range/Units 02:59 Sodium 140 (135-145) mmol/L Potassium 4.4 (3.5-5.5) mmol/L Chloride 104 (96-109) mmol/L Carbon Dioxide 24.9 (21.6-31.8) mmol/L BUN 30.2 H (9.0-27.0) mg/dL Creatinine 1.2 (0.6-1.5) mg/dL Glucose 126 H (70-110) mg/dL Calcium 9.0 (8.7-10.3) mg/dL AST 306 H (13-35) U/L ALT 474 H (8-44) U/L Alkaline Phosphatase 123 (41-126) U/L Total Protein 6.2 (6.2-8.2) g/dL Albumin 4.0 (3.8-4.9) g/dL Current Medications Generic Name Dose Route Start Last Admin Trade Name Freq PRN Reason Stop Dose Admin Amlodipine Besylate 5 mg 07/09/24 09:00 07/09/24 09:17 Amlodipine 5 Mg Tab PO 5 mg DAILY JAYMIE Administration Aspirin 81 mg 07/09/24 09:00 07/09/24 09:17 Aspirin 81 Mg PO 81 mg DAILY JAYMIE Administration HCTZ/Losartan Potassium 1 each 07/09/24 09:30 Losartan-Hctz 50-12.5 Mg 1 Each Tab PO DAILY JAYMIE Hydralazine HCl 25 mg 07/09/24 16:00 Hydralazine Hcl 25 Mg Tab PO TID JAYMIE Metoprolol Succinate 100 mg 07/09/24 09:30 Metoprolol Succinate (Er) 100 Mg Tab.Er.24h PO DAILY JAYMIE Naloxone HCl 0.2 mg 07/08/24 12:57 Naloxone 0.4 Mg/Ml 1 Ml Vial IV Q2M PRN Opioid Reversal Ondansetron HCl 4 mg 07/08/24 12:57 Ondansetron 4 Mg/2 Ml Vial IVP Q8HR PRN Nausea And Vomiting Pantoprazole Sodium 40 mg 07/09/24 09:00 07/09/24 09:17 Pantoprazole 40 Mg/10 Ml Vial IV 40 mg DAILY JAYMIE Administration Intake and Output 07/08/24 07/09/24 07/09/24 22:59 06:59 14:59 Intake Total 0 Balance 0 Intake: Oral 0 Other: Voiding Method Toilet # Voids 1 Weight 87.09 kg 07/09/24 02:59 07/09/24 02:59
[2024-07-09] MEDS ORDERED: oxyCODONE-APAP 10-325MG 1 EACH TAB PO PRN (10:57)
[2024-07-09] MEDS: METOPROLOL SUCCINATE (ER) 100 MG TAB.ER.24H PO SCH (11:02)
[2024-07-09] MEDS: LOSARTAN-HCTZ 50-12.5 MG 1 EACH TAB PO SCH (11:02)
[2024-07-09] MEDS: KETOROLAC 15 MG/ML 1 ML VIAL IVP STA (11:03)
[2024-07-09] MEDS: hydrALAZINE HCL 10 MG TAB PO SCH (11:17)
[2024-07-09] MEDS: hydrALAZINE HCL 25 MG TAB PO SCH (17:18)
[2024-07-09] MEDS: IBUPROFEN 600 MG TAB PO PRN (18:02)
[2024-07-09] MEDS: PANTOPRAZOLE 40 MG TABLET PO SCH (20:38)
--- NOTE | 2024-07-10 00:19 | US ---
EXAMINATION TYPE: US abdomen complete DATE OF EXAM: 07/09/2024 COMPARISON: NONE CLINICAL INDICATION: Female, 78 years old with history of epigastric pain, elevated LFTs/lipase, hx o f german; Generalized pain. GB removed this year. TECHNIQUE: Multiple sonographic images of the abdomen are obtained. FINDINGS: EXAM MEASUREMENTS: Liver Length: 14.5 cm CBD: 0.6 cm Right Kidney: 9.3 x 4.1 x 4.0 cm Left Kidney: 9.3 x 4.4 x 4.6 cm PARASITOLOGY TEACHER NOTES: Limited due to overlying bowel gas Pancreas: Obscured by bowel gas Liver: Heterogenous signal with diminished sound penetration can be compatible some mild fatty infil tration. Gallbladder: Surgically absent Evidence for sonographic Sam's sign: neg CBD: limited visualization Spleen: Obscured by overlying bowel gas Right Kidney: Inferior pole obscured by bowel gas Left Kidney: No hydronephrosis or masses seen Upper IVC: wnl Abd Aorta: Atherosclerotic changes seen, no AAA visualized at time of scan IMPRESSION: 1. Mild fatty infiltration to the liver. [facility], , 07/10/2024 12:17 AM
--- NOTE | 2024-07-10 09:14 | CA ---
Transthoracic Echo Report Name: Keke Petersen Age: 78 Gender: F : 1945 Exam Date: 07/09/2024 14:11 Exam Location: [place] [facility] Ht (in): 65 Wt (lb): 192 Ordering Physician: Radha Escalante Attending/Referring Phys: [id number], Boris Smudger Adilene Sawant RDCS Procedure CPT: Indications: CP Cardiac Hx: Technical Quality: Fair Contrast 1: Total Dose (mL): Contrast 2: Total Dose (mL): MEASUREMENTS (Male / Female) Normal Values 2D ECHO LV Diastolic Diameter PLAX 3.7 cm 4.2 - 5.9 / 3.9 - 5.3 cm LV Systolic Diameter PLAX 2.7 cm IVS Diastolic Thickness 0.9 cm 0.6 - 1.0 / 0.6 - 0.9 cm LVPW Diastolic Thickness 1.2 cm 0.6 - 1.0 / 0.6 - 0.9 cm LV Relative Wall Thickness 0.6 LA Volume 65.5 cm??? 18 - 58 / 22 - 52 cm??? LA Volume Index 32.3 cm???/m??? 16 - 28 cm???/m??? M-MODE Aortic Root Diameter MM 3.3 cm LA Systolic Diameter MM 4.3 cm LA Ao Ratio MM 1.3 AV Cusp Separation MM 1.9 cm DOPPLER AV Peak Velocity 141.1 cm/s AV Peak Gradient 8.0 mmHg AV Mean Velocity 108.6 cm/s AV Mean Gradient 5.1 mmHg AV Velocity Time Integral 32.6 cm AI Peak Velocity 328.4 cm/s AI Peak Gradient 43.1 mmHg AI Pressure Half Time 420.6 ms LVOT Peak Velocity 128.7 cm/s LVOT Peak Gradient 6.6 mmHg LVOT Velocity Time Integral 25.5 cm MV Area PHT 3.2 cm??? Mitral E Point Velocity 83.9 cm/s Mitral A Point Velocity 101.4 cm/s Mitral E to A Ratio 0.8 MV Deceleration Time 236.5 ms MV E' Velocity 6.4 cm/s Mitral E to MV E' Ratio 13.1 TR Peak Velocity 232.1 cm/s TR Peak Gradient 21.6 mmHg Right Ventricular Systolic Press 26.0 mmHg FINDINGS Left Ventricle Mildly increased left ventricular wall thickness. Left ventricular cavity size normal. Normal left ventricular systolic function with no obvious regional wall motion abnormalities. Left ventricular ejection fraction is estimated at 55-60 %. Grade 1 diastolic dysfunction. Right Ventricle Normal right ventricular size and function. Normal right ventricular size. Right ventricular systolic pressure within normal limits. Right Atrium Normal right atrial size. Left Atrium Mildly increased left atrial volume. Mitral Valve Structurally normal mitral valve. Mitral valve thickened. Mild mitral annular calcification. No mitral stenosis. Trace to mild mitral regurgitation. Aortic Valve Trileaflet aortic valve. No aortic stenosis. Moderate aortic regurgitation. Tricuspid Valve Structurally normal tricuspid valve. Mild tricuspid regurgitation. Pulmonic Valve Structurally normal pulmonic valve. Pericardium No pericardial effusion. Aorta Normal size aortic root and proximal ascending aorta. CONCLUSIONS Normal biventricular systolic function Moderate aortic insufficiency was noted Previewed by: Dr. Saurav Boggs MD (Electronically Signed) Final Date: 10 July 2024 09:13
[2024-07-10 10:30] LABS: ALT 261 U/L (4-34); AST 95 U/L (14-36); African American GFR (CKD) 35 (>60 ml/min/1.73 sqM); Albumin 3.9 g/dL (3.5-5.0); Albumin/Globulin Ratio 1.5; Alkaline Phosphatase 102 U/L (38-126); Anion Gap 7 mmol/L; Blood Urea Nitrogen 34 mg/dL (7-17); Calcium 9.1 mg/dL (8.4-10.2); Carbon Dioxide 28 mmol/L (22-30); Chloride 103 mmol/L (98-107); Globulin 2.6 g/dL; Glucose 60 mg/dL (74-99); Non-African American GFR(CKD) 31 (>60 ml/min/1.73 sqM); Potassium 3.7 mmol/L (3.5-5.1); Sodium 138 mmol/L (137-145); Total Bilirubin 0.9 mg/dL (0.2-1.3); Total Protein 6.5 g/dL (6.3-8.2)
--- NOTE | 2024-07-10 11:05 | P.PN ---
Subjective HISTORY OF PRESENT ILLNESS: This is a 78-year-old female with a past medical history significant for coronary artery disease with previous stenting, aortic regurgitation, hypertension, and cholecystectomy. Patient follows in the office with Dr. Arce. We have been asked to see the patient in consultation for chest pain. Patient examined at the bedside. Patient states yesterday she began having chest discomfort. When talking to the patient she points to her epigastric region when asked to describe where the pain was. She states she was just standing talking to somebody when the pain occurred. She initially thought her it may be anxiety related. She denied any radiation of the pain. She describes the pain as an aching type sensation. She states that she was short of breath, nauseated, and diaphoretic at that time. She states her symptoms yesterday felt different than her symptoms when she required stenting. She denies any further epigastric pain this morning. She does report chronic back pain. Patient's blood pressures were found to be elevated with a systolic between 1 80-200. The patient does report her blood pressures have been running higher than normal at home. DIAGNOSTICS: - EKG reveals sinus mechanism with no signs of acute ischemia - Chest xray negative for acute process - Laboratory data: WBC 9.39. Hemoglobin 12.8. Platelet count 174. Sodium 140. Potassium 4.4. BUN 30. Creatinine 1.2. AST 306. ALT 474. Troponin negative x 3. Lipase 406. proBNP 355. - Current home cardiac medications include aspirin 81 mg daily, amlodipine 5 mg daily, hydralazine 10 mg 3 times a day, and metoprolol succinate 100 mg daily - Most recent echocardiogram obtained in October 2023 revealed ejection fraction 55%, moderate AI, mild TR -Patient underwent Lexiscan stress test in October 2023 which was negative for ischemia - Cardiac catheterization history: February 2017 revealing mild in-stent restenosis within the LAD. No significant disease in dominant circumflex or nondominant RCA. 07/10/2024 Patient examined this morning at the bedside. Patient denies any further episodes of chest pain or pressure. She denies shortness of breath. Blood pressure significantly improved today after adjustment of hypertensive medications yesterday. Echocardiogram completed revealing ejection fraction 55 to 60% with moderate aortic insufficiency PHYSICAL EXAM: VITAL SIGNS: Reviewed. GENERAL: Well-developed in no acute distress. HEENT: Head is normocephalic. Pupils are equal, round. Sclerae anicteric. Mucous membranes of the mouth are moist. Neck supple. No JVD or thyromegaly LUNGS: Respirations even and unlabored. Lungs essentially clear to auscultation bilaterally. HEART: Regular rate and rhythm. S1 and S2 heard. Diastolic murmur noted. ABDOMEN: Soft. Nondistended. Nontender. EXTREMITIES: Normal range of motion. No clubbing or cyanosis. Peripheral pulses intact. No lower extremity edema NEUROLOGIC: Awake and alert. Oriented x 3. ASSESSMENT: Chest pain/epigastric pain, troponin negative x 3 Hypertensive urgency Transaminitis Elevated lipase History of cholecystectomy Coronary artery disease with previous stenting of the LAD Moderate aortic regurgitation Chronic back pain PLAN: Patient with mild increase in creatinine today. May be due to addition of new antihypertensive medications along with dose of Toradol yesterday. Continue with current medication regimen and repeat BMP in AM. Further management of EVARISTO per internal medicine. Continue current cardiac medications No further inpatient recommendations from a cardiac standpoint We will sign off. Please reconsult if needed. Nurse practitioner note has been reviewed by physician. Signing provider agrees with the documented findings, assessment, and plan of care documented by [employer]PERATOR as a scribe. Objective - Vital Signs Vital signs: Vital Signs Temp 97.8 F 07/10/24 07:00 Pulse 60 07/10/24 07:00 Resp 18 07/10/24 07:00 BP 122/57 07/10/24 07:00 Pulse Ox 97 07/10/24 07:00 FiO2 Intake & Output 07/09/24 07/10/24 07/10/24 18:59 06:59 18:59 Intake Total 118 720 Balance 118 720 Intake: Oral 118 720 Other: Voiding Method Toilet Toilet Toilet # Voids 1 3 - Labs CBC & Chem 7: 07/09/24 02:59 07/10/24 10:00 Labs: Abnormal Lab Results - Last 24 Hours (Table) 07/10/24 Range/Units 10:00 BUN 34 H (7-17) mg/dL Creatinine 1.61 H (0.52-1.04) mg/dL Glucose 60 L (74-99) mg/dL AST 95 H (14-36) U/L ALT 261 H (4-34) U/L
[2024-07-11 07:33] VITALS: RESP 15; TEMP 98.2
[2024-07-11 08:02] VITALS: BP 132/75; PULSE 64
--- NOTE | 2024-07-11 14:49 | PN ---
PROGRESS NOTE DATE OF SERVICE: 07/09/2024 CHIEF COMPLAINT: Chest pain and hypertension. HISTORY OF PRESENT ILLNESS: This lady's blood pressure jumped up during the night, but it is back under good control. She has not had any further chest pain or shortness of breath. PHYSICAL EXAMINATION: CHEST: Clear. CARDIAC: Normal. ABDOMEN: Soft, nontender. IMPRESSION: 1. Chest pain. 2. Coronary artery disease. 3. Hypertension. 4. Anxiety. 5. Depression. PLAN: Continue to follow her blood pressure and probably home tomorrow. MMODL / IJN: [id number] /
--- NOTE | 2024-07-11 14:49 | HP ---
HISTORY AND PHYSICAL CHIEF COMPLAINT: Chest pain. HISTORY OF PRESENT ILLNESS: This is another admission for this 78-year-old white female. She has had coronary artery problems in the past. She recently was in the office complaining of chest pain. She is under a great deal of stress taking care of family member as well as her and then receiving very little support and in fact some controversy from some other family members. In the emergency room, her EKG and enzymes were normal and she even thought it was due to stress. She was admitted for further evaluation. Past medical history, family history, and personal and social history reveal that she is allergic to Lipitor. She is on hydralazine, Celexa, Symbicort, metoprolol, amlodipine, pantoprazole, Adderall, and Percocet occasionally. REVIEW OF SYSTEMS: Otherwise unremarkable. She has had no neurologic problems, cough, hemoptysis, abdominal pain, nausea, vomiting, melena, hematochezia, renal disease, etc. PAST MEDICAL HISTORY: Otherwise unremarkable. SOCIAL HISTORY: She has never smoked and she does not drink. PHYSICAL EXAMINATION: VITAL SIGNS: Blood pressure 160/90 with a pulse of 88 and regular, respirations 16 and she is afebrile. GENERAL: She appeared to be well developed, well nourished, in no acute distress. Skin color is normal. Skin is warm and dry. LYMPHATICS: Lymph nodes are not enlarged. HEAD, EARS, EYES, NOSE, MOUTH AND THROAT: Normal. NECK: Neck veins are not distended. CHEST: Clear. CARDIAC: Normal sinus rhythm and no murmurs or extra sounds. ABDOMEN: Soft, nontender. EXTREMITIES: Normal. NEUROLOGICAL: She is intact. ASSESSMENT: She is admitted to the hospital with diagnoses of, 1. Chest pain. 2. History of coronary artery disease. 3. History of hypertension. 4. Anxiety. 5. Depression. PLAN: 1. Bed rest. 2. IV fluids. 3. Serial EKGs and enzymes and probably discharge soon. MMODL / IJN: [id number] /
--- NOTE | 2024-07-11 14:51 | PN ---
PROGRESS NOTE DATE OF SERVICE: 07/10/2024 CHIEF COMPLAINT: Chest pain. HISTORY OF PRESENT ILLNESS: This lady is fairly stable and it was thought she could go home, but she is extremely depressed and it was felt advisable to obtain psychiatric consult for her before she is discharged. PHYSICAL EXAMINATION: VITAL SIGNS: Normal. CHEST: Clear. CARDIAC EXAM: Normal. IMPRESSION: 1. Chest pain. 2. History of coronary artery disease. 3. Hypertension. 4. Severe anxiety. 5. Major depression. PLAN: Consult with Psychiatry. MMODL / IJN: [id number] /
--- NOTE | 2024-07-12 06:10 | DS ---
DISCHARGE SUMMARY CHIEF COMPLAINT: Chest pain and hypertension. HISTORY OF PRESENT ILLNESS AND PHYSICAL EXAMINATION: Details of this lady's history and physical can be found in the initial workup. LABORATORY STUDIES: While she was in the hospital, she had laboratory studies, details of which can be found in the laboratory section of her chart and were essentially unremarkable. Troponins remained normal. COURSE IN HOSPITAL: After admission, she was placed on bedrest, started on intravenous fluids on telemetry, and she had no further pain. She has been undergoing a great deal of stress at home lately and both the patient and I were convinced that this was related to that. She is quite depressed and she was referred to Psychiatry for consultation. She was doing well and it was felt that she could be go home on the and she will go home on her usual activity, diet, medications, and will follow up next week. FINAL DIAGNOSES: 1. Chest pain, noncardiac. 2. History of coronary artery disease. 3. History of hypertension. 4. Depression. OPERATIONS: None. CONSULTATIONS: Psychiatry, she is improved. SHELL / CHANTALN: [id number] /
== END 2024-07-11 13:24 | disposition home or self-care (01) ==
LOC: EC 08:17 → 6NMEDSUR 12:57
PROVIDERS: ADMIT Family Medicine; ATTEND Family Medicine
DX: R07.89 Other chest pain (principal); I16.0 Hypertensive urgency; R10.13 Epigastric pain; I25.110 Atherosclerotic heart disease of native coronary artery with unstable angina pectoris; I11.0 Hypertensive heart disease with heart failure; I50.9 Heart failure, unspecified; I35.1 Nonrheumatic aortic (valve) insufficiency; F43.9 Reaction to severe stress, unspecified; G89.29 Other chronic pain; M54.9 Dorsalgia, unspecified; R74.01 Elevation of levels of liver transaminase levels; R74.8 Abnormal levels of other serum enzymes; Z79.82 Long term (current) use of aspirin; Z79.51 Long term (current) use of inhaled steroids; Z79.899 Other long term (current) drug therapy; Z88.8 Allergy status to other drugs, medicaments and biological substances; Z90.49 Acquired absence of other specified parts of digestive tract; Z95.5 Presence of coronary angioplasty implant and graft
CPT/HCPCS: 36415; 71045; 76700; 80053; 83690; 83735; 83880; 84100; 84484; 85025; 85610; 85730; 93005; 93306; 96374; 96375; 99291